=== PATIENT | female | born 1945 | race Caucasian/White ===

== ENCOUNTER → 2024-02-27 | Outpatient (CLI) | payer SELFPAY ==
--- NOTE | 2024-02-27 09:30 | XR_ITS ---
Examination: Screening digital mammography, bilateral Computer aided detection 3-D breast Tomosynthesis, bilateral Date and time of exam: February 27, 2024 0928 hours Compared to mammograms dating to May 01, 2016 Indication: Screening Technique: Nonmagnified MLO, CC views of the breasts to been obtained, reconstructed from 3-D Tomosynthesis images. R2 computer aided detection program utilized for evaluation of suspicious masses and/or abnormal calcifications. 3-D Tomosynthesis images obtained. Findings: Scattered areas of fibroglandular density Benign calcifications No interval suspicious masses Impression: BI-RADS category II: Benign Findings. Recommend 1 year follow-up mammogram.
== END | disposition home or self-care (01) ==
PROVIDERS: Referring Provider Internal Medicine; Visit Provider Internal Medicine
DX: Z12.31 Encounter for screening mammogram for malignant neoplasm of breast (principal); R92.323 Mammographic fibroglandular density, bilateral breasts; R92.1 Mammographic calcification found on diagnostic imaging of breast
CPT/HCPCS: 77063; 77067

== ENCOUNTER → 2024-05-26 | Outpatient (CLI) | payer OTHER, SELFPAY ==
[2024-05-26 11:00] LABS: Collection Type, Urine Clean Catch
[2024-05-26 11:27] LABS: Basophils % (Auto) 1 % (0-2.5); Eosinophils % (Auto) 0 % (0-10); Hematocrit 39.8 % (36.0-46.0); Hemoglobin 13.7 g/dL (12.0-16.0); Immature Granulocytes % (Auto) 0 % (0-0); Immature Granulocytes Auto 0.03 Thou/mm3 (0.00-0.00); Lymphocytes # (Auto) 1.8 Thou/mm3 (1.0-4.8); Lymphocytes % (Auto) 20 % (10-50); Mean Corpuscular HGB Conc 34.4 g/dl (31.0-37.0); Mean Corpuscular Hemoglobin 31.9 pg (25.0-35.0); Mean Corpuscular Volume 93 fL (80-100); Monocytes # (Auto) 0.6 Thou/mm3 (0.0-0.8); Monocytes % (Auto) 7 % (0-12); Neutrophils # (Auto) 6.3 Thou/mm3 (1.8-7.7); Neutrophils % (Auto) 72 % (37-80); Nucleated Red Blood Cell % 0 /100 WBC (0); Platelet Count 291 Thou/mm3 (140-440); RDW Standard Deviation 45.3 fL (36.4-46.3); White Blood Count 8.9 Thou/mm3 (3.6-11.0)
[2024-05-26 11:34] LABS: Glucose Estimated Average 120 mg/dL (80-131); Hemoglobin A1C 5.8 % Hgb (4.8-6.0)
[2024-05-26 11:44] LABS: Creatinine MALB Rnd Ur 104 mg/dL (30-125); Microalbumin Creat Ratio 3 mg/gCrea (<30); Microalbumin, Random Urine 3 mg/L (0-300)
[2024-05-26 11:52] LABS: Bilirubin,Urine Negative (Negative); Blood,Urine Negative (Negative); Clarity,Urine Clear (Clear/Hazy); Color,Urine Lt Yellow (Lt Yel-Yel); Glucose, Urine Negative (Negative); Ketones,Urine Negative (Negative); Leukocyte Esterase,Urine 1+ (Negative); Nitrite,Urine Negative (Negative); PH,Urine 6.5 (5.0-7.0); Protein,Urine Negative (Neg - Trace); Specific Gravity,Urine 1.015 (1.001-1.035); Urobilinogen,Urine 0.2 mg/dL (0.0-1.0)
[2024-05-26 11:55] LABS: Alanine Aminotransferase 12 U/L (10-49); Albumin/Globulin Ratio 1.8 (1.2-2.2); Alkaline Phosphatase 65 U/L (46-116); Anion Gap 9 (7-16); Aspartate Amino Transferase 25 U/L (0-34); BUN/Creatinine Ratio 23 Ratio (12-20); Bilirubin,Total 0.7 mg/dL (0.3-1.2); Blood Urea Nitrogen 18 mg/dL (9-23); Calcium 9.4 mg/dL (8.3-10.6); Calcium (Corrected) 9.4 mg/dL (8.5-10.1); Carbon Dioxide 30.2 mMol/L (20.0-31.0); Cardiac Risk Estimate 2.7 RATIO (3.7-5.6); Chloride 101 mMol/L (98-107); Cholesterol 145 mg/dL (132-200); Creatinine (Component) 0.8 mg/dL (0.6-1.3); Globulin 2.2 gm/dL (2.3-3.5); Glucose 102 mg/dL (74-106); HDL Cholesterol 53 mg/dL (40-60); LDL Cholesterol,Calculated 58 mg/dL (0-130); Osmolality,Calculated 281 (275-295); Potassium 3.3 mMol/L (3.4-5.1); Sodium 140 mMol/L (136-145); Thyroid Stimulating Hormone 0.38 uIU/mL (0.55-4.78); Total Protein 6.2 gm/dL (5.7-8.2); Triglycerides 170 mg/dL (30-150); eGFR > 60 See Note
[2024-05-26 12:24] LABS: Hyaline Casts,Urine 1 /hpf (0-1); RBC,Urine 10 /hpf (0-3); Squamous Epithelial Cell,Urine 6 /hpf (0-5); WBC,Urine 17 /hpf (0-5)
== END | disposition home or self-care (01) ==
LOC: COPL 10:16
PROVIDERS: PCP Internal Medicine; Referring Provider Internal Medicine; Visit Provider Internal Medicine
DX: E11.9 Type 2 diabetes mellitus without complications (principal); I10 Essential (primary) hypertension; E78.5 Hyperlipidemia, unspecified; E03.9 Hypothyroidism, unspecified
CPT/HCPCS: 36415; 80053; 80061; 81001; 82043; 82570; 83036; 84443; 85025

== ENCOUNTER → 2024-07-23 | Outpatient (CLI) | payer OTHER, SELFPAY ==
[2024-07-23 10:38] LABS: Basophils % (Auto) 1 % (0-2.5); Eosinophils # (Auto) 0.1 Thou/mm3 (0.0-0.5); Eosinophils % (Auto) 1 % (0-10); Hematocrit 38.1 % (36.0-46.0); Hemoglobin 13.2 g/dL (12.0-16.0); Immature Granulocytes % (Auto) 0 % (0-0); Immature Granulocytes Auto 0.02 Thou/mm3 (0.00-0.00); Lymphocytes # (Auto) 1.9 Thou/mm3 (1.0-4.8); Lymphocytes % (Auto) 31 % (10-50); Mean Corpuscular HGB Conc 34.6 g/dl (31.0-37.0); Mean Corpuscular Hemoglobin 31.7 pg (25.0-35.0); Mean Corpuscular Volume 92 fL (80-100); Monocytes # (Auto) 0.5 Thou/mm3 (0.0-0.8); Monocytes % (Auto) 8 % (0-12); Neutrophils # (Auto) 3.6 Thou/mm3 (1.8-7.7); Neutrophils % (Auto) 59 % (37-80); Nucleated Red Blood Cell % 0 /100 WBC (0); Platelet Count 258 Thou/mm3 (140-440); RDW Standard Deviation 47.2 fL (36.4-46.3); Red Blood Count 4.16 Miln/mm3 (4.00-5.20); White Blood Count 6.2 Thou/mm3 (3.6-11.0)
[2024-07-23 10:47] LABS: Glucose Estimated Average 117 mg/dL (80-131); Hemoglobin A1C 5.7 % Hgb (4.8-6.0)
[2024-07-23 11:01] LABS: Collection Type, Urine Clean Catch
[2024-07-23 11:05] LABS: Alanine Aminotransferase 12 U/L (10-49); Albumin, Serum 4.1 gm/dL (3.4-4.8); Albumin/Globulin Ratio 1.7 (1.2-2.2); Alkaline Phosphatase 66 U/L (46-116); Anion Gap 7 (7-16); Aspartate Amino Transferase 21 U/L (0-34); BUN/Creatinine Ratio 21 Ratio (12-20); Bilirubin,Total 0.6 mg/dL (0.3-1.2); Blood Urea Nitrogen 17 mg/dL (9-23); Cardiac Risk Estimate 2.6 RATIO (3.7-5.6); Chloride 104 mMol/L (98-107); Cholesterol 155 mg/dL (132-200); Creatinine (Component) 0.8 mg/dL (0.6-1.3); Globulin 2.4 gm/dL (2.3-3.5); Glucose 126 mg/dL (74-106); HDL Cholesterol 60 mg/dL (40-60); LDL Cholesterol,Calculated 64 mg/dL (0-130); Osmolality,Calculated 282 (275-295); Sodium 140 mMol/L (136-145); Thyroid Stimulating Hormone 1.62 uIU/mL (0.55-4.78); Total Protein 6.5 gm/dL (5.7-8.2); Triglycerides 154 mg/dL (30-150); eGFR > 60 See Note
[2024-07-23 11:25] LABS: Bilirubin,Urine Negative (Negative); Blood,Urine Negative (Negative); Clarity,Urine Clear (Clear/Hazy); Color,Urine Lt-Yellow (Lt Yel-Yel); Glucose, Urine Negative (Negative); Ketones,Urine Negative (Negative); Leukocyte Esterase,Urine Positive (Negative); Nitrite,Urine Negative (Negative); PH,Urine 6.5 (5.0-7.0); Protein,Urine Negative (Neg - Trace); RBC,Urine 1 /hpf (0-3); Specific Gravity,Urine 1.016 (1.001-1.035); Squamous Epithelial Cell,Urine 3 /hpf (0-5); Urobilinogen,Urine Negative mg/dL (0.0-1.0); WBC,Urine 4 /hpf (0-5)
== END | disposition home or self-care (01) ==
LOC: COPL 10:06
PROVIDERS: PCP Internal Medicine; Referring Provider Internal Medicine; Visit Provider Internal Medicine
DX: E11.9 Type 2 diabetes mellitus without complications (principal); I10 Essential (primary) hypertension; E78.5 Hyperlipidemia, unspecified; E03.9 Hypothyroidism, unspecified
CPT/HCPCS: 36415; 80053; 80061; 81001; 83036; 84443; 85025

== ENCOUNTER 2024-10-12 20:15 | Inpatient (IN) | payer OTHER, MEDICARE, SELFPAY ==
[2024-10-12 20:17] VITALS: PULSE 40; RESP 18; O2SAT 98
[2024-10-12 20:23] VITALS: BMI 29.2
--- NOTE | 2024-10-12 20:23 | EKG_ITS ---
[facility] Test Date: 2024-10-12 Pat Name: DILEEP STEEL Department: Room: - Gender: Female Pay Clerk: : 1945 Requested By: ED Temporary Provider Order Number: [id number] Reading MD: ED Temporary Provider Measurements Intervals [place] Rate: 44 P: 56 NM: 185 QRS: 236 QRSD: 164 T: 10 QT: 471 QTc: 407 Interpretive Statements SINUS BRADYCARDIA INDETERMINATE AXIS RIGHT BUNDLE BRANCH BLOCK [120+ ms QRS DURATION, UPRIGHT V1, 40+ ms S IN I/aVL/V4/V5/V6] PROBABLE SEPTAL MYOCARDIAL INFARCTION , OF INDETERMINATE AGE [35 ms Q WAVE IN V1/V2] MODERATE T-WAVE ABNORMALITY, CONSIDER LATERAL ISCHEMIA [-0.1+ mV T-WAVE IN I/aVL/V5/V6] Compared to ECG 02/20/2022 11:09:37 Indeterminate axis now present Myocardial infarct finding now present T-wave abnormality now present Possible ischemia now present Sinus rhythm no longer present Right-axis deviation no longer present /store/S0/[id number]/[id number].pdf
--- NOTE | 2024-10-12 20:26 | EDNOTE_ITS ---
ED Dizzyness RME/HPI General Chief Complaint: Chest Pain Stated Complaint: CHEST PAIN Time Seen by Provider: 10/12/24 20:24 Arrival date/time: 10/12/24 20:15 RME / HPI RME / HPI Narrative: DR. CORDERO MAIN ED EVALUATION: 78 y/o female with Hx of Heart Murmur, Hypercholesterolemia, Hypertension, Diabetes Mellitus Type 2 and Hypothyroidism BIBA from home presents to ED c/o dizziness, headache, elevated blood pressure, and decreased heart rate while siting down x just RN ANESTHESIOLOGY. Patient is on Metoprolol. She was recently seen at [facility] due to severe chest pain, L > R. Patient's diagnostic results were unremarkable and was discharged after 3 days. Denies nausea, vomiting, diarrhea and constipation. Patient also denies chest pain, cough, shortness of breath, and fever. Related Data Home Medications ?Medication ?Instructions ?Recorded ?Confirmed allopurinol 100 mg tablet 100 mg PO QDAY #0 tabs 04/2302/20/22 (Zyloprim) lovastatin 20 mg tablet 20 mg PO HS #0 tabs 04/23/14 02/20/22 amitriptyline 10 mg tablet 20 mg PO QHSPRN PRN Anxiety ##90 11/29/16 02/20/22 lisinopril 40 mg tablet 40 mg PO QDAY ##90 11/29/16 02/20/22 hydrochlorothiazide 25 mg tablet 25 mg PO QAM 02/19/20 02/20/22 levothyroxine 75 mcg tablet 75 mcg PO QAM 02/20/22 metformin 500 mg tablet 500 mg PO QDAY 02/20/2202/01 verapamil 120 mg tablet 120 mg PO BID 02/20/2202/20 Previous Rx's ?Medication ?Instructions ?Recorded ciprofloxacin HCl 500 mg tablet 500 mg PO BID #20 tabs 05/19/22 (Cipro) hydrocodone 5 mg-acetaminophen 325 1 tab PO TID PRN pa in #20 tabs 05/19/22 mg tablet Allergies Allergy/AdvReac Type Severity Reaction Status Date / Time No Known Allergies Allergy Verified 05/18/22 16:16 Review of Systems Review of Systems Systems Reviewed: All systems reviewed, normal except as documented Past Medical History Past Medical History NEUROLOGIC: Positive Head Trauma (FELL OFF HORSE ER VISIT AT 29 YRS OLD) CARDIAC: Positive Heart Murmur, Hypercholesterolemia (TAKES MED) and Hypertension (TAKES MED) GASTROINTESTINAL: Positive Diverticulitis and Hemorrhoids (NO SURG) REPRODUCTIVE: Positive Previous Pregnancies (X4) MUSCULOSKELETAL: Positive Gout ENT: Positive Head Trauma (FELL OFF HORSE ER VISIT AT 29 YRS OLD) ENDOCRINE: Positive Diabetes Mellitus Type 2 and Hypothyroidism (TAKES MED) OTHER HISTORY: Positive Chicken Pox, Measles and Mumps Family History FAMILY HISTORY: Positive Family Cardiac Disorders (MOTHER (CVA),FATHER (HEART BYPASS)SISTER (CVA,CA)(HTN)), Family Cancer (SISTER (LUNG)) and Family Surgery (SISTER,FATHER) Surgical History SURGICAL: Positive Section ED Exam Narrative Physical exam: GENERAL APPEARANCE: alert and oriented x 4, well-developed, well-nourished, no acute distress VITALS: All vitals were reviewed and the pulse ox is 95% on room air, which is normal according to my interpretation. HEENT: Normocephalic, atraumatic; pupils equal, round, reactive to light; EOMI; mucous membranes pink, moist; oropharynx clear NECK: Supple LUNGS: CTABL; no wheezes, no rales, no rhonchi HEART: Bradycardia, regular rhythm; normal S1, S2; 2 out of 6 systolic murmur radiating to the left axilla ABDOMEN: non distended; normal BS; soft, no tenderness, no guarding, no rebound; no masses, no organomegaly, no hernia BACK: no CVA tenderness EXTREMITIES: atraumatic; no edema NEUROLOGIC: awake; alert and oriented x4; cranial nerves II-XII grossly intact; no focal sensory or motor deficits PSYCHIATRIC: appropriate mood and affect SKIN: warm, dry, normal color; no rashes Course Course Course Narrative: CXR is ordered for determining the etiology of shortness of breath. Quality Measures none Orders Category Date Time Status Admit to Inpatient Status Routine Admission 10/13/24 02:29 Active Patient Condition Routine Admission 10/13/24 02:29 Ordered Activity as Tolerated Routine Care 10/13/24 02:31 Ordered Barrel Washer Machine NOW Care 10/12/24 20:28 Completed Barrel Washer Machine Q4H START 00 Care 10/12/24 20:26 Active Continuous Pulse Oximetry NOW Care 10/13/24 02:31 Active EKG (ED ONLY) *Do not use* NOW Care 10/12/24 20:23 Completed Flu & Pneumonia Vaccine Screen ONCE Care 10/13/24 02:31 Active Fluid restriction QDAY Care 10/13/24 02:35 Active Insert IV NOW Care 10/12/24 20:27 Active Miscellaneous Nursing Order NOW Care 10/13/24 02:35 Active Notify provider NEEDED Care 10/13/24 02:29 Active Obtain weight daily Care 10/13/24 02:31 Active Strict Intake and Output Routine Care 10/13/24 02:31 Ordered Urinary Catheter QS Care 10/13/24 02:31 Active Consult to Cardiology Routine Cons 10/13/24 02:34 Ordered Diet Cardiac Diet 10/13/[address] head/brain wo con Stat Exams 10/12/24 22:23 Completed EKG (ED Only) Stat Exams 10/12/24 20:23 Draft KUB [XR abdomen 1V] Stat Exams 10/13/24 02:40 Ordered XR chest 1V portable Stat Exams 10/12/24 20:28 Completed B-Type Natriuretic Peptide Stat Lab 10/12/24 20:30 Completed CBC AM DRAW Lab 10/13/24 05:00 Ordered CBC AM DRAW Lab 10/14/24 05:00 Ordered CBC AM DRAW Lab 10/15/24 05:00 Ordered CBC Stat Lab 10/12/24 20:30 Completed Calprotectin, Stool* Routine Lab 10/13/24 Ordered Comprehensive Metabolic Panel AM DRAW Lab 10/13/24 05:00 Ordered Comprehensive Metabolic Panel AM DRAW Lab 10/14/24 05:00 Ordered Comprehensive Metabolic Panel AM DRAW Lab 10/15/24 05:00 Ordered Comprehensive Metabolic Panel Stat Lab 10/12/24 20:30 Completed Free T4 (Free Thyroxine) Stat Lab 10/13/24 00:30 Completed Giardia Antigen, EIA, Stool* Routine Lab 10/13/24 Ordered Lipase Stat Lab 10/12/24 20:30 Completed Magnesium AM DRAW Lab 10/13/24 05:00 Ordered Magnesium Stat Lab 10/12/24 20:30 Completed Partial Thromboplastin Time Stat Lab 10/12/24 20:30 Completed Phosphorous AM DRAW Lab 10/13/24 05:00 Ordered Prothrombin Time with INR Stat Lab 10/12/24 20:30 Completed Stool Culture Routine Lab 10/13/24 02:36 Ordered Stool for WBCs Routine Lab 10/13/24 02:36 Ordered Thyroid Stimulating Hormone Stat Lab 10/13/24 00:30 Completed Troponin I Routine Lab 10/13/24 05:00 Ordered Troponin I Stat Lab 10/12/24 20:30 Completed Troponin I Stat Lab 10/13/24 00:30 Completed UA, C/S IF [Urinalysis, C/S if Indicated] Stat Lab 10/12/24 23:00 Completed Acetaminophen Tab [Tylenol Tab] Med 10/13/24 02:31 Active 650 mg PO Q6H PRN Acetaminophen Tab [Tylenol Tab] Med 10/12/24 22:10 Discontinued 650 mg PO X1 ONE Acetaminophen Tab [Tylenol Tab] Med 10/12/24 22:10 Discontinued 650 mg PO X1 ONE HYDROcodone/APAP 10/325 [[place] 10/325] Med 10/13/24 02:31 Active 1 tab PO Q6H PRN Heparin Inj Med 10/13/24 09:00 Active 5,000 unit SC Q12HR KCL 10% Liq UDC 15 ML Med 10/12/24 22:52 Discontinued 40 meq PO X1 ONE Levothyroxine Sodium [Synthroid] Med 10/13/24 06:00 Active 88 mcg PO ACBR Magnesium Sulfate 2 GM Ivpb [Magnesium Sulfate Ivpb] Med 10/12/24 22:52 D iscontinued 2 gm in 50 ml IV X1 Magnesium Sulfate 4 GM Ivpb [Magnesium Sulfate Ivpb] Med 10/13/24 02:39 Ordered 4 gm in 50 ml IV X1 Morphine Inj Med 10/13/24 02:31 Active 1 mg IVP Q6H PRN Ondansetron Inj [Zofran Inj] Med 10/13/24 02:31 Active 4 mg IVP Q6H PRN POTASSIUM CHL 10 mEq IVPB [Kcl Ivpb] Med 10/12/24 22:52 Active 10 meq in 100 ml IV Q1HR Senna [Senokot] Med 10/13/24 02:31 Active 1 tab PO QDAY PRN Simethicone [Mylicon Chew] Med 10/13/24 02:40 Ordered 80 mg PO QID PRN Sodium Chloride 0.9% 1000 ml [Ns] 1,000 ml Med 10/12/24 22:55 Discontinued IV 999 mls/hr hydrALAZINE INJ [Apresoline Inj] Med 10/12/24 20:36 Discontinued 10 mg IVP X1 ONE hydrALAZINE INJ [Apresoline Inj] Med 10/12/24 21:27 Discontinued 10 mg IVP X1 ONE Code Status Routine Oth 10/13/24 02:29 Ordered Vital Signs Vital signs: Vital Signs Temperature 98.4 F 10/12/24 20:28 Pulse Rate 44 L 10/12/24 20:28 Respiratory Rate 16 10/12/24 20:28 Blood Pressure 216/97 H 10/12/24 20:28 Pulse Oximetry (%) 95 10/12/24 20:28 Dizziness MDM Narrative MDM Narrative:: Scribe Attestation: Lori Hay, am scribing for and in the presence of Dr. Cordero. Provider Notation: Although this document has been carefully reviewed, there may still be some phonetic and other typographical errors.? These errors are purely grammatical due to imperfections in the software program and should not be construed in any way to? compromise the substance of the patient's medical care during this visit. Patient data External records reviewed:: [facility] previous records (Reviewed prior ED records from 11/15/22. Patient was seen for Hemorrhoids.) and EMS form Clinical information provided by:: patient and EMS Social determinants that could affect healthcare access:: none Patient has the following chronic illnesses:: Heart Murmur, Hypercholesterolemia, Hypertension, Diverticulitis, Hemorrhoids, Gout, Diabetes Mellitus Type 2 and Hypothyroidism How is presenting disease/condition affected by chronic disease/condition?: exacerbated by Evaluation data The following diagnostics were reviewed and interpreted by me:: lab results, radiology exam(s) and EKG tracing(s) (EKG manual reading, my interpretation: bradycardia, rate: 44 bpm, no ST elevation, no acute ischemic changes.) Lab and/or radiology exams considered but not ordered:: None Interpretation Summary: RADIOLOGY Chest X-Ray: FINDINGS: Minimal prominence left ventricle Ectatic thoracic aorta. Blunting of the costophrenic angles. Subsegmental atelectasis left base No lobar pneumonia or pulmonary edema IMPRESSION: Subsegmental atelectasis left base Head/Brain CT: Findings: No significant ventricular enlargement. Intra-axial or extra-axial hemorrhage density is not seen. No mass effect or midline shift Basal cisterns are not remarkable. Fourth ventricle is midline. Cranial vault intact. Impression: Negative for acute hemorrhage, mass effect or midline shift Medications / Prescriptions Medications or Prescriptions considered but not ordered:: None Medication administrations:: Medication Administration History Acetaminophen (Acetaminophen 325 Mg Tablet) 650 mg PO Q6H PRN PRN Reason: PAIN SCALE 1-3 (mild Stop: 11/12/24 02:30 Hydrocodone Bitart/Acetaminophen (Hydrocodone/Apap 10/325 Tab) 1 tab PO Q6H PRN PRN Reason: PAIN SCALE 4-6 (Moderate Stop: 10/18/24 02:30 Heparin Sodium (Porcine) (Heparin Sod Inj 5000 Unit/Ml Vial) 5,000 unit SC Q12HR BRITTANI Stop: 10/27/24 08:59 Potassium Chloride (Kcl Ivpb) 10 meq in 100 mls @ 100 mls/hr IV Q1HR BRITTANI Stop: 10/13/24 02:59 Last Admin: 10/13/24 02:14 Dose: 100 mls/hr Documented By: Infusion: 10/13/24 02:14 Dose: Infused Documented By: Admin: 10/13/24 01:26 Dose: 100 mls/hr Documented By: Infusion: 10/13/24 01:23 Dose: Infused Documented By: Admin: 10/13/24 00:20 Dose: 100 mls/hr Documented By: Infusion: 10/13/24 00:20 Dose: Infused Documented By: Admin: 10/12/24 23:19 Dose: 100 mls/hr Documented By: SIMI Magnesium Sulfate (Magnesium Sulfate Ivpb) 4 gm in 50 mls @ 12.5 mls/hr IV X1 ONE Stop: 10/13/24 06:38 Levothyroxine Sodium (Levothyroxine Sodium 88 Mcg Tablet) 88 mcg PO ACBR [facility] Stop: 11/12/24 05:59 Morphine Sulfate (Morphine Sulf Inj 10 Mg/Ml Vial) 1 mg IVP Q6H PRN PRN Reason: PAIN SCALE 7-10 (Severe Stop: 10/18/24 02:30 Ondansetron HCl (Ondansetron Inj 2 Mg/Ml Inj 2 Ml) 4 mg IVP Q6H PRN; Protocol PRN Reason: NAUSEA OR VOMITING Stop: 11/12/24 02:30 Sennosides (Senna Tablet) 1 tab PO QDAY PRN; Protocol PRN Reason: constipation Stop: 11/12/24 02:30 Simethicone (Simethicone 80 Mg Chew) 80 mg PO QID PRN PRN Reason: GAS Stop: 11/12/24 02:39 Discontinued Medications Acetaminophen (Acetaminophen 325 Mg Tablet) 650 mg PO X1 ONE Stop: 10/12/24 22:11 Last Admin: 10/12/24 22:36 Dose: 650 mg Documented By: SIMI Acetaminophen (Acetaminophen 325 Mg Tablet) 650 mg PO X1 ONE Stop: 10/12/24 22:11 Last Admin: 10/12/24 22:24 Dose: Not Given Documented By: ROBY Non-Admin Reason: Cancelled by Provider Hydralazine HCl (Hydralazine Inj 20 Mg/Ml Vial) 10 mg IVP X1 ONE Stop: 10/12/24 20:37 Last Admin: 10/12/24 20:46 Dose: 10 mg Documented By: SIMI Hydralazine HCl (Hydralazine Inj 20 Mg/Ml Vial) 10 mg IVP X1 ONE Stop: 10/12/24 21:28 Last Admin: 10/12/24 22:06 Dose: 10 mg Documented By: NAILA Magnesium Sulfate (Magnesium Sulfate Ivpb) 2 gm in 50 mls @ 25 mls/hr IV X1 ONE Stop: 10/13/24 00:51 Last Infusion: 10/13/24 01:23 Dose: Infused Documented By: Admin: 10/12/24 23:19 Dose: 25 mls/hr Documented By: SIMI Sodium Chloride (Ns) 1,000 mls @ 999 mls/hr IV .Q1H1M ONE Stop: 10/12/24 23:55 Last Admin: 10/12/24 23:19 Dose: 999 mls/hr Documented By: SIMI Potassium Chloride (Potassium Chloride 10% 20 Meq/15 Ml Udc) 40 meq PO X1 ONE Stop: 10/12/24 22:53 Last Admin: 10/12/24 23:20 Dose: 40 meq Documented By: SIMI See above Consultations Consultation(s) initiated? (list below): Yes Consultation #1 (Physician, Specialty, Details): Discussed with resident doctor for Dr. Barros for admission. Reviewed the patient?s HPI, PMHx, lab and/or radiology results. Discussed treatment plan. Will consult an admission to the hospitalist. Time: 01:40 Diagnosis Dizziness Differential Diagnosis: adverse reaction to drug, benign paroxysmal positional vertigo, orthostatic hypotension, vertebral basilar insufficiency, cerebrovascular accident, acute vestibular neuronitis, transient cerebral ischemia and other (CA) Most likely diagnosis given after review of the tests above:: Hypertensive urgency, Symptomatic bradycardia Admission Indicated Admission indicated?: indicated Explain why admission is indicated or not indicated:: Hypertensive urgency, Symptomatic bradycardia Admission Request Was there a request for admission?: Yes Admission Attestation Admission request attestation: Discussed case with [] from Hospitalist service regarding admission. Discussed patients ED course, exam findings, labs, and radiology results. The Hospitalist [agrees,declines] to accept the patient for admission. Disposition Plan Disposition Plan: Admit Discharge Plan Plan Patient Disposition: Admit Acute Care w/in Hospital Prescriptions/Referrals Prescriptions/Med Rec: No Action allopurinol [Zyloprim] 100 MG tablet 100 mg PO QDAY Qty: 0 lovastatin 20 MG tablet 20 mg PO HS Qty: 0 amitriptyline 10 mg Tablet 20 mg PO QHSPRN PRN (Reason: Anxiety) Qty: 90 lisinopril 40 MG tablet 40 mg PO QDAY Qty: 90 hydrochlorothiazide 25 mg Tablet 25 mg PO QAM metformin 500 mg tablet 500 mg PO QDAY Patient Comments: TAKE 1 TABLET BY MOUTH EVERY DAY WITH A MEAL levothyroxine 75 mcg tablet 75 mcg PO QAM Patient Comments: TAKE 1 TABLET BY MOUTH EVERY DAY BEFORE BREAKFAST verapamil 120 mg tablet 120 mg PO BID Patient Comments: TAKE 1 TABLET BY MOUTH TWICE A DAY ciprofloxacin HCl [Cipro] 500 mg tablet 500 mg PO BID Qty: 20 0RF Rx Instructions: Please do not take atorvastatin while taking this medication hydrocodone-acetaminophen 5-325 mg tablet 1 tab PO TID MDD 3 PRN (Reason: pain) Qty: 20 0RF Referrals: No Primary/Family,Physician [Referring Provider] - In 1 week Problem List Clinical Impression: Hypertensive urgency, Symptomatic bradycardia Patient/Caregiver Discharge Instructions Print Language: Italian
[2024-10-12 20:28] VITALS: BP 216/97; PULSE 44; RESP 16; TEMP 36.9; O2SAT 95
--- NOTE | 2024-10-12 20:28 | XR_ITS ---
Examination: AP chest single view TECHNIQUE: AP portable semiupright chest single view Date and time: 51, 2024, 2035 hours INDICATIONS: Onset chest pain today. FINDINGS: Minimal prominence left ventricle Ectatic thoracic aorta. Blunting of the costophrenic angles. Subsegmental atelectasis left base No lobar pneumonia or pulmonary edema IMPRESSION: Subsegmental atelectasis left base
[2024-10-12 20:46] VITALS: BP 216/96; PULSE 56
[2024-10-12] MEDS: hydrALAZINE INJ 20 MG/ML VIAL 10 MG IVP ×2 (20:46→22:06)
[2024-10-12 20:49] LABS: Basophils # (Auto) 0.0 Thou/mm3 (0.0-0.2); Basophils % (Auto) 1 % (0-2.5); Eosinophils # (Auto) 0.1 Thou/mm3 (0.0-0.5); Eosinophils % (Auto) 1 % (0-10); Hematocrit 37.3 % (36.0-46.0); Hemoglobin 12.7 g/dL (12.0-16.0); Immature Granulocytes Auto 0.01 Thou/mm3 (0.00-0.00); Lymphocytes # (Auto) 2.2 Thou/mm3 (1.0-4.8); Lymphocytes % (Auto) 32 % (10-50); Mean Corpuscular HGB Conc 34.0 g/dl (31.0-37.0); Mean Corpuscular Hemoglobin 31.2 pg (25.0-35.0); Mean Corpuscular Volume 92 fL (80-100); Monocytes # (Auto) 0.7 Thou/mm3 (0.0-0.8); Monocytes % (Auto) 10 % (0-12); Neutrophils # (Auto) 3.7 Thou/mm3 (1.8-7.7); Neutrophils % (Auto) 56 % (37-80); Nucleated Red Blood Cell # 0.00 Thou/mm3 (0.00-0.00); Nucleated Red Blood Cell % 0 /100 WBC (0); Platelet Count 187 Thou/mm3 (140-440); RDW Standard Deviation 46.3 fL (36.4-46.3); Red Blood Count 4.07 Miln/mm3 (4.00-5.20); White Blood Count 6.6 Thou/mm3 (3.6-11.0)
[2024-10-12 21:06] LABS: INR 1.3 (0.9-1.3); Partial Thromboplastin Time 26.1 Seconds (22.0-36.0); Prothrombin Time 14.0 Seconds (9.0-12.2)
[2024-10-12 21:10] LABS: B-Type Natriuretic Peptide 427 pg/mL (0-100)
[2024-10-12 21:20] VITALS: BP 206/111
[2024-10-12 21:26] LABS: Alanine Aminotransferase 20 U/L (10-49); Albumin, Serum 3.7 gm/dL (3.4-4.8); Albumin/Globulin Ratio 1.7 (1.2-2.2); Alkaline Phosphatase 82 U/L (46-116); Anion Gap 10 (7-16); Aspartate Amino Transferase 25 U/L (0-34); BUN/Creatinine Ratio 14 Ratio (12-20); Bilirubin,Total 0.8 mg/dL (0.3-1.2); Blood Urea Nitrogen 11 mg/dL (9-23); Calcium 8.9 mg/dL (8.3-10.6); Calcium (Corrected) 9.1 mg/dL (8.5-10.1); Carbon Dioxide 32.7 mMol/L (20.0-31.0); Chloride 103 mMol/L (98-107); Creatinine (Component) 0.8 mg/dL (0.6-1.3); Estimated Creatinine Clearance 57.3 mL/min (>60); Globulin 2.2 gm/dL (2.3-3.5); Glucose 96 mg/dL (74-106); Lipase 37 U/L (12-53); Magnesium 1.0 mg/dL (1.6-2.6); Osmolality,Calculated 289 (275-295); Potassium 2.9 mMol/L (3.4-5.1); Sodium 146 mMol/L (136-145); Total Protein 5.9 gm/dL (5.7-8.2); Troponin I 0.020 ng/mL (0.0-0.045); eGFR > 60 See Note
[2024-10-12 22:06] VITALS: BP 188/80; PULSE 46
--- NOTE | 2024-10-12 22:23 | XR_ITS ---
Examination: CT brain head without contrast. 2-D sagittal coronal reconstructions Date and time of exam:October 12, 2024 at 11:05 PM INDICATIONS: Hypertension with headache today CTDI: vol (mGy):47 DLP: (mGycm):810 Technique: Multiple CT axial sections of the brain have been obtained, 5 mm slice thickness. Contrast has not been administered. 2-D sagittal, coronal reconstructions have been obtained Low dose protocols were performed. One or more of the following dose reduction techniques were used; automated exposure control, adjustment of the mA and/or KV according to patient size, use of iterative reconstruction technique. Findings: No significant ventricular enlargement. Intra-axial or extra-axial hemorrhage density is not seen. No mass effect or midline shift Basal cisterns are not remarkable. Fourth ventricle is midline. Cranial vault intact. Impression: Negative for acute hemorrhage, mass effect or midline shift
[2024-10-12] MEDS: ACETAMINOPHEN 325 MG TABLET 650 MG PO (22:36)
[2024-10-12 22:37] VITALS: BP 172/72
[2024-10-12] MEDS: Magnesium Sulfate 2 GM Ivpb 2 GM/50 ML BAG IV (23:19)
[2024-10-12] MEDS: POTASSIUM CHL 10 mEq IVPB 10 MEQ/100 ML BAG 100 MEQ IV (23:19)
[2024-10-12] MEDS: SODIUM CHLORIDE 0.9% 1000 ML 1,000 ML 999 ML IV (23:19)
[2024-10-12 23:20] LABS: Collection Type, Urine Clean Catch
[2024-10-12] MEDS: POTASSIUM CHLORIDE 10% 20 MEQ/15 ML UDC 40 MEQ PO (23:20)
[2024-10-12 23:26] LABS: Bilirubin,Urine Negative (Negative); Blood,Urine Negative (Negative); Clarity,Urine Clear (Clear/Hazy); Color,Urine Colorless (Lt Yel-Yel); Culture Indicated,Urine Not Indicated; Glucose, Urine Negative (Negative); Ketones,Urine Negative (Negative); Leukocyte Esterase,Urine Positive (Negative); Nitrite,Urine Negative (Negative); PH,Urine 7.5 (5.0-7.0); Protein,Urine Negative (Neg - Trace); RBC,Urine 1 /hpf (0-3); Specific Gravity,Urine 1.007 (1.001-1.035); Squamous Epithelial Cell,Urine < 1 /hpf (0-5); Urobilinogen,Urine Negative mg/dL (0.0-1.0); WBC,Urine 2 /hpf (0-5)
[2024-10-13] VITALS (21 sets, daily range): BP systolic 135–192; BP diastolic 60–119; PULSE 45–106; RESP 9–24; TEMP 35.9–37.2; O2SAT 90–98; BMI 29.2; BMI 29.0
[2024-10-13] MEDS: POTASSIUM CHL 10 mEq IVPB 10 MEQ/100 ML BAG 100 MEQ IV ×3 (00:20→02:14)
[2024-10-13 01:02] LABS: Troponin I 0.023 ng/mL (0.0-0.045)
--- NOTE | 2024-10-13 01:36 | PC.NURSE ---
biba from home for BIBA from home due to dizziness, headache, and chest pain. when pt arrived to ed, pt denied chest pain and sob. pt did state she has a headache
[2024-10-13 02:28] LABS: Free T4 (Free Thyroxine) 1.55 ng/dL (0.89-1.76); Thyroid Stimulating Hormone 1.93 uIU/mL (0.55-4.78)
--- NOTE | 2024-10-13 02:40 | XR_ITS ---
Examination: Abdomen AP single view Technique: AP portable supine abdomen, single view Exam date and time: October 13, 2024, 0243 hours INDICATIONS: Diarrhea and abdominal tenderness today. FINDINGS: Moderate stool in the right and transverse colon. No obstruction. No free air. Moderate lumbar levoscoliosis IMPRESSION: Nonobstructive bowel gas pattern.
--- NOTE | 2024-10-13 02:42 | ESHP_ITS ---
Documentation for date of: 10/13/24 [facility] History of Present Illness Chief complaint: Headache History of present illness: 78-year-old female with past medical history of congestive heart failure, thyroid cancer status post thyroidectomy on thyroid replacement, squamous cell carcinoma of the neck, Crohn's disease, gout, prediabetes, depression, mild cognitive impairment presenting to the ED on 10/13 due to having a headache. Patient's is bedside and provided additional history; apparently patient's blood pressure was elevated at home. Of note, patient denies having any chest pain, palpitations but does state that she has ongoing headache, abdominal pain and weakness. Her states that there was some issues with what medication she took this afternoon due to a mishap with the pill container. Patient's also states that for the past week or so she has been more confused (sounds more like a misunderstanding). Patient states that her primary care physician is Dr. Jason and she follows up with cardiology in [place] Dr. Gallo and Tyr[place]. Apparently she has had a left heart cath which was benign and she did not require any stent placement. Patient does have some degree of heart failure and she has been told she has a murmur in the past. Patient also apparently been told that she has Crohn's disease although she is not on any medications currently; was referred to a printing equipment mechanic in [place] but has yet to follow-up. Patient has been having diarrhea for the past month and using the bathroom about 3-4 times a day; denies recent antibiotic use. Medical history: As stated above Surgical history: Thyroidectomy and squamous cell carcinoma of the neck removal Allergies: NKDA Medications: Pending med rec Family history: Noncontributory Social history: Patient used to be a health practice manager, currently retired. Patient lives in [place] with . Denies any alcohol, tobacco or illicit drug use ROS: All 12 systems assessed and the patient denies unless otherwise stated in HPI In the ED, patient presented hypertensive emergency with a blood pressure of 216/97, heart rate of 44, respiratory rate of 16 but afebrile satting 95 on room air. Pertinent lab findings included sodium 146, potassium 2.9, creatinine 0.8, magnesium 1.0, troponin 0.023, BNP of 427, TSH of 1.93 and free T41.55. Urinalysis shows no signs of infection. EKG shows sinus bradycardia with right bundle branch block and increased QRS interval. Chest x-ray shows subsegmental atelectasis of the left base and head CT is negative for any acute findings. Patient will be admitted for symptomatic bradycardia and hypertensive emergency requiring close monitoring and cardiology consultation. Exam Vital Signs Temp Pulse Resp BP Pulse Ox 98.9 F 46 L 19 192/83 H 97 10/13/24 00:00 10/13/24 00:00 10/13/24 00:00 10/13/24 00:10 10/13/24 00:00 Narrative Exam Physical Exam: GENERAL: Awake, answering questions appropriately, appears stated age HEENT: NC/AT. Moist mucosa. PERRLA/EOMI. CARDIO: Heart RRR, Grade IV/ systolic ejection murmur, no JVD. PULM: No coughing or visible SOB. Lungs CTA B/L. GI: Abdomen soft, tender to palpation diffusely with guarding but no rigidity noted. [place]gmi apparent SKIN/MSK/EXT: +1 pitting edema up to shins bilaterally. No wounds/discoloration/rashes/amputations noted. +Pedal pulses present B/L. NEURO: Oriented x3, Moves extremities x4, no focal neurologic deficits Results: Labs 10/12/24 20:30 10/12/24 20:30 Labs: Short CBC 10/12/24 Range/Units 20:30 WBC 6.6 (3.6-11.0) Thou/mm3 Hgb 12.7 (12.0-16.0) g/dL Hct 37.3 (36.0-46.0) % Plt Count 187 (140-440) Thou/mm3 BMP 10/12/24 20:30 Sodium 146 H Potassium 2.9 L Chloride 103 Carbon Dioxide 32.7 H BUN 11 Creatinine 0.8 Glucose 96 Calcium 8.9 Cardiac Enzymes 10/12/24 10/13/24 Range/Units 20:30 00:30 Troponin I 0.020 0.023 (0.0-0.045) ng/mL Liver Function 10/12/24 Range/Units 20:30 Total Bilirubin 0.8 (0.3-1.2) mg/dL AST 25 (0-34) U/L ALT 20 (10-49) U/L Alkaline Phosphatase 82 (46-116) U/L Albumin 3.7 (3.4-4.8) gm/dL Urine 10/12/24 Range/Units 23:00 Urine Color Colorless A (Lt Yel-Yel) Urine Clarity Clear (Clear/Hazy) Urine pH 7.5 H (5.0-7.0) Ur Specific [place] 1.007 (1.001-1.035) Urine Protein Negative (Neg - Trace) Urine Glucose (UA) Negative (Negative) Quality Measures Quality Measures none Advance care planning discussed with:: patient and spouse Medications Home Medications and Allergies Home Medications ?Medication ?Instructions ?Recorded ?Confirmed ?Type allopurinol 100 mg tablet 100 mg PO QDAY #0 tabs 04/2310/13/24 History (Zyloprim) lovastatin 20 mg tablet 40 mg PO HS #0 tabs 04/23/14 10/13/24 History amitriptyline 10 mg tablet 10 mg PO QHSPRN PRN Anxiety ##90 11/29/16 10/13/24 History hydrochlorothiazide 25 mg tablet 25 mg PO QAM 02/19/20 10/13/24 History levothyroxine 75 mcg tablet 88 mcg PO QAM 02/20/22 History Allergies Allergy/AdvReac Type Severity Reaction Status Date / Time No Known Allergies Allergy Verified 05/18/22 16:16 Visit Medications Acetaminophen (Acetaminophen 325 Mg Tablet) 650 mg PO Q6H PRN PRN Reason: PAIN SCALE 1-3 (mild Stop: 11/12/24 02:30 Hydrocodone Bitart/Acetaminophen (Hydrocodone/Apap 10/325 Tab) 1 tab PO Q6H PRN PRN Reason: PAIN SCALE 4-6 (Moderate Stop: 10/18/24 02:30 Heparin Sodium (Porcine) (Heparin Sod Inj 5000 Unit/Ml Vial) 5,000 unit SC Q12HR BRITTANI Stop: 10/27/24 08:59 Potassium Chloride (Kcl Ivpb) 10 meq in 100 mls @ 100 mls/hr IV Q1HR BRITTANI Stop: 10/13/24 02:59 Last Admin: 10/13/24 02:14 Dose: 100 mls/hr Magnesium Sulfate (Magnesium Sulfate Ivpb) 4 gm in 50 mls @ 12.5 mls/hr IV X1 ONE Stop: 10/13/24 06:38 Levothyroxine Sodium (Levothyroxine Sodium 88 Mcg Tablet) 88 mcg PO ACBR BRITTANI Stop: 11/12/24 05:59 Morphine Sulfate (Morphine Sulf Inj 10 Mg/Ml Vial) 1 mg IVP Q6H PRN PRN Reason: PAIN SCALE 7-10 (Severe Stop: 10/18/24 02:30 Ondansetron HCl (Ondansetron Inj 2 Mg/Ml Inj 2 Ml) 4 mg IVP Q6H PRN; Protocol PRN Reason: NAUSEA OR VOMITING Stop: 11/12/24 02:30 Sennosides (Senna Tablet) 1 tab PO QDAY PRN; Protocol PRN Reason: constipation Stop: 11/12/24 02:30 Simethicone (Simethicone 80 Mg Chew) 80 mg PO QID PRN PRN Reason: GAS Stop: 11/12/24 02:39 Discontinued Medications Acetaminophen (Acetaminophen 325 Mg Tablet) 650 mg PO X1 ONE Stop: 10/12/24 22:11 Last Admin: 10/12/24 22:36 Dose: 650 mg Acetaminophen (Acetaminophen 325 Mg Tablet) 650 mg PO X1 ONE Stop: 10/12/24 22:11 Last Admin: 10/12/24 22:24 Dose: Not Given Hydralazine HCl (Hydralazine Inj 20 Mg/Ml Vial) 10 mg IVP X1 ONE Stop: 10/12/24 20:37 Last Admin: 10/12/24 20:46 Dose: 10 mg Hydralazine HCl (Hydralazine Inj 20 Mg/Ml Vial) 10 mg IVP X1 ONE Stop: 10/12/24 21:28 Last Admin: 10/12/24 22:06 Dose: 10 mg Magnesium Sulfate (Magnesium Sulfate Ivpb) 2 gm in 50 mls @ 25 mls/hr IV X1 ONE Stop: 10/13/24 00:51 Last Infusion: 10/13/24 01:23 Dose: Infused Sodium Chloride (Ns) 1,000 mls @ 999 mls/hr IV .Q1H1M ONE Stop: 10/12/24 23:55 Last Admin: 10/12/24 23:19 Dose: 999 mls/hr Potassium Chloride (Potassium Chloride 10% 20 Meq/15 Ml Udc) 40 meq PO X1 ONE Stop: 10/12/24 22:53 Last Admin: 10/12/24 23:20 Dose: 40 meq Assessment & Plan Plan 78-year-old female with past medical history of congestive heart failure, thyroid cancer status post thyroidectomy on thyroid replacement, squamous cell carcinoma of the neck, Crohn's disease, gout, prediabetes, depression, mild cognitive impairment presenting to the ED on 10/13 due to having a headache will be admitted for symptomatic bradycardia and hypertensive emergency requiring close monitoring and cardiology consultation. #Symptomatic bradycardia As noted above, patient presented with symptomatic bradycardia, weakness/dizziness initially In the ED patient's heart rate has been fluctuating between low 40s to mid 50s but with stable blood pressure Patient is on metoprolol succinate 25 mg along with amitriptyline which could potentially be causing cardiac arrhythmia Patient does have extensive cardiac history and follows with Dr. Gallo and Tyrone Plan: Telemetry monitoring Dr. Wells, cardiology consulted appreciate recommendations Possible need for pacemaker Will consider atropine versus transcutaneous pacing if patient becomes hypotensive #Hypertensive emergency #Hypertension Patient presented in hypertensive emergency with a systolic 216 diastolic 97 Had symptoms of headache which could be contributed to the hypertensive emergency In the ED patient was given x 2 IV hydralazine 10 mg Patient is on home hydrochlorothiazide 25 mg and metoprolol succinate 25 Plan: Permissive hypertension at this time with a goal reduction of 25% within the next 24 hours Start antihypertensives when appropriate #History of congestive heart failure, unknown EF [place] Heart Association class II Patient apparently had a workup at [facility] recently for chest discomfort but all findings were negative She has some degree of heart failure as noted by her home medications but she is unsure of her ejection fraction There is no echo on file On examination, patient does have +1 pitting edema in lower extremities but no JVD, no crackles Initial troponin 0.023 and BNP of 427 Chest x-ray does not show any signs of vascular congestion Plan: IV Lasix 40 daily while monitoring for permissive hypertension Daily weight Strict I's and O's Fluid restriction of 1800 mL Echo ordered #Severe electrolyte abnormalities Patient presenting with low potassium and low magnesium Plan: Replete as needed Follow-up with morning labs #Chronic diarrhea #History of Crohn's disease? Patient states that she has been having diarrhea for the past month, 3-4 bowel movements a day Has history of Crohn's disease apparently but does not take any medications Has been referred to a printing equipment mechanic in [place] but has not followed up Plan: Stool studies, stool WBC, Giardia, culture Monitor symptoms in the hospital Consider GI consultation if needed #Thyroid cancer status post thyroidectomy #Squamous cell carcinoma of the neck #Prediabetes #Depression #Gout Chronic medical conditions nonpertinent to the following presentation Plan: Restarted patient's levothyroxine 88 mcg Pending official med rec Will continue monitoring for any acute changes Health Maintenance: Lines: PIV, [place] Diet: Cardiac Bowel: Senna GI prophylaxis: Not needed DVT prophylaxis: Subcu heparin Dispo: Telemetry monitoring, cardiology consultation for symptomatic bradycardia and hypertensive emergency Code: Full Patient seen and assessed with attending Dr. Fiorella Purdy DO PGY-2 Internal Medicine - GME Attending Provider Attestation/Addendum I have discussed and was present for the essential components of the history, physical examination, diagnosis, and treatment plan with the resident. I agree with the patient's care as documented by the resident and amended herein by me. Erick Barros DO. Although this document has been carefully reviewed, there may still be some phonetic and other typographical errors. These errors are purely grammatical due to imperfections in the software program and should not be construed in any way to compromise the substance of the patient's medical care during this visit.
[2024-10-13] MEDS: Magnesium Sulfate 4 GM Ivpb 4 GM/50 ML BAG IV (02:45)
--- NOTE | 2024-10-13 03:05 | ECHO_ITS ---
Transthoracic Echo Report Ht (in): 64 Wt (lb): 170 Exam Location: Echo Lab Status: Inpatient Hog Counter: Merari Sal Indications: Procedure Performed: BP: 161 / 60 HR: 49 Technical Quality: Very technically difficult study MEASUREMENTS (Male / Female) Normal Values 2D ECHO LV Diastolic Diameter PLAX 3.8 cm 4.2 - 5.9 / 3.9 - 5.3 cm LV Systolic Diameter PLAX 2.5 cm IVS Diastolic Thickness 1.2 cm 0.6 - 1.0 / 0.6 - 0.9 cm LVPW Diastolic Thickness 1.2 cm 0.6 - 1.0 / 0.6 - 0.9 cm LV Relative Wall Thickness 0.6 LVOT Diameter 1.9 cm Aortic Root Diameter 2.7 cm M-MODE Aortic Root Diameter MM 2.6 cm LA Systolic Diameter MM 3.0 cm LA Ao Ratio MM 1.2 AV Cusp Separation MM 1.2 cm DOPPLER AV Peak Velocity 273.0 cm/s AV Peak Gradient 29.8 mmHg AV Mean Gradient 15.0 mmHg AV Velocity Time Integral 62.0 cm LVOT Peak Velocity 134.0 cm/s LVOT Peak Gradient 7.2 mmHg LVOT Velocity Time Integral 37.5 cm LVOT Cardiac Index 2757.5 cm?/min?m? AV Area Cont Eq vti 1.7 cm? AV Area Cont Eq pk 1.4 cm? MV Area PHT 1.9 cm? Mitral E Point Velocity 74.2 cm/s Mitral A Point Velocity 78.1 cm/s Mitral E to A Ratio 1.0 LV E' Lateral Velocity 6.0 cm/s Mitral E to LV E' Lateral Ratio 12.4 LV E' Septal Velocity 8.2 cm/s Mitral E to LV E' Septal Ratio 9.1 TR Peak Velocity 263.0 cm/s TR Peak Gradient 27.7 mmHg FINDINGS Left Ventricle Normal left ventricular size and systolic function with no obvious regional wall motion abnormalities. Mild LVH. There is grade I diastolic dysfunction of the left ventricle (impaired relaxation pattern). The ejection fraction is visually estimated at 60-65 %. Right Ventricle The right ventricle is normal in size and systolic function. The estimated right ventricular systolic pressure, 33 mmHg. RAP 5. Left Atrium The left atrium is normal by two-dimensional, color flow and Doppler imaging with no structural abnormalities, no thrombus formation present. Right Atrium The right atrium is normal by two-dimensional imaging, color flow and Doppler imaging with no structural abnormalities, no thrombus formation present. Atrial Septum The interatrial septum appears normal with no evidence of a shunt. Aorta The aorta is normal by two-dimensional, color flow and Doppler interrogation. Mitral Valve The mitral valve is normal by two-dimensional, color flow and Doppler interrogation. Trace mitral regurgitation. Aortic Valve aortic valve sclerosis. Mild aortic valve stenosis. Tricuspid Valve The tricuspid valve is normal by two-dimensional, color flow and Doppler interrogation. Mild TR. Pulmonic Valve The pulmonic valve is not well visualized. There is no significant pulmonic valve regurgitation. Vessels The pulmonary artery appears normal. The inferior vena cava pulmonary and hepatic veins appear normal. Pericardium The pericardium is normal by two-dimensional imaging. There is no significant pericardial effusion. CONCLUSIONS Indication: Bradycardia Normal LV size. Mild LVH. There is grade I diastolic dysfunction. Estimated EF at 60-65 %. The RV is normal in size and systolic function. The estimated RVSP, 33 mmHg. RAP 5. Trace MR. Mild TR. Sclerosis AV. Mild . Prince Wells (Electronically Signed) Final Date: 14 October 2024 14:09
[2024-10-13] MEDS: MORPHINE SULF INJ 10 MG/ML VIAL IVP (04:55)
[2024-10-13 06:18] LABS: Alanine Aminotransferase 21 U/L (10-49); Albumin, Serum 4.0 gm/dL (3.4-4.8); Albumin/Globulin Ratio 1.7 (1.2-2.2); Alkaline Phosphatase 83 U/L (46-116); Anion Gap 11 (7-16); Aspartate Amino Transferase 33 U/L (0-34); BUN/Creatinine Ratio 13 Ratio (12-20); Bilirubin,Total 1.0 mg/dL (0.3-1.2); Blood Urea Nitrogen 9 mg/dL (9-23); Calcium 8.8 mg/dL (8.3-10.6); Calcium (Corrected) 8.8 mg/dL (8.5-10.1); Carbon Dioxide 27.1 mMol/L (20.0-31.0); Chloride 104 mMol/L (98-107); Creatinine (Component) 0.7 mg/dL (0.6-1.3); Estimated Creatinine Clearance 65.5 mL/min (>60); Globulin 2.3 gm/dL (2.3-3.5); Glucose 128 mg/dL (74-106); Magnesium 2.0 mg/dL (1.6-2.6); Osmolality,Calculated 283 (275-295); Phosphorous 3.0 mg/dL (2.4-5.1); Potassium 3.9 mMol/L (3.4-5.1); Sodium 142 mMol/L (136-145); Total Protein 6.3 gm/dL (5.7-8.2); Troponin I 0.020 ng/mL (0.0-0.045); eGFR > 60 See Note
[2024-10-13] MEDS: hydrALAZINE INJ 20 MG/ML VIAL 10 MG IVP (06:35)
[2024-10-13 07:06] LABS: Basophils # (Auto) 0.0 Thou/mm3 (0.0-0.2); Basophils % (Auto) 0 % (0-2.5); Eosinophils # (Auto) 0.0 Thou/mm3 (0.0-0.5); Eosinophils % (Auto) 0 % (0-10); Hematocrit 45.4 % (36.0-46.0); Hemoglobin 15.6 g/dL (12.0-16.0); Immature Granulocytes Auto 0.04 Thou/mm3 (0.00-0.00); Lymphocytes # (Auto) 1.8 Thou/mm3 (1.0-4.8); Lymphocytes % (Auto) 18 % (10-50); Mean Corpuscular HGB Conc 34.4 g/dl (31.0-37.0); Mean Corpuscular Hemoglobin 31.5 pg (25.0-35.0); Mean Corpuscular Volume 92 fL (80-100); Monocytes # (Auto) 0.8 Thou/mm3 (0.0-0.8); Monocytes % (Auto) 8 % (0-12); Neutrophils # (Auto) 7.0 Thou/mm3 (1.8-7.7); Neutrophils % (Auto) 73 % (37-80); Nucleated Red Blood Cell # 0.00 Thou/mm3 (0.00-0.00); Nucleated Red Blood Cell % 0 /100 WBC (0); Platelet Count 206 Thou/mm3 (140-440); RDW Standard Deviation 46.4 fL (36.4-46.3); Red Blood Count 4.96 Miln/mm3 (4.00-5.20); White Blood Count 9.6 Thou/mm3 (3.6-11.0)
[2024-10-13] MEDS: FUROSEMIDE INJ 10 MG/ML 4ML VIAL 40 MG IVP (08:20)
[2024-10-13] MEDS: HEPARIN SOD INJ 5000 UNIT/ML VIAL SC ×2 (08:20→20:36)
[2024-10-13] MEDS: hydrALAZINE INJ 20 MG/ML VIAL IVP (08:21)
--- NOTE | 2024-10-13 09:34 | PD.RESPRO ---
Documentation for date of: 10/13/24 Subjective Subjective Interval history: Took over care from hospitalist team. 78-year-old female with past medical history of congestive heart failure, thyroid cancer status post thyroidectomy on thyroid replacement, squamous cell carcinoma of the neck, Crohn's disease, gout, prediabetes, depression, mild cognitive impairment presenting to the ED on 10/13 due to having a headache. Patient's is bedside and provided additional history; apparently patient's blood pressure was elevated at home. Of note, patient denies having any chest pain, palpitations but does state that she has ongoing headache, abdominal pain and weakness. Her states that there was some issues with what medication she took this afternoon due to a mishap with the pill container. Patient's also states that for the past week or so she has been more confused (sounds more like a misunderstanding). Patient states that her primary care physician is Dr. Jason and she follows up with cardiology in [place] Dr. Gallo and [place]. Apparently she has had a left heart cath which was benign and she did not require any stent placement. Patient does have some degree of heart failure and she has been told she has a murmur in the past. Patient also apparently been told that she has Crohn's disease although she is not on any medications currently; was referred to a billing and insurance coordinator in [place] but has yet to follow-up. Patient has been having diarrhea for the past month and using the bathroom about 3-4 times a day; denies recent antibiotic use. 10/13/24: Patient was admitted overnight. Seen and examined at bedside. Reports headache, nausea, mild abdominal pain on palpation, and anxiety. Denies chest pain, SOB or fever. BP elevated this morning 182/73. HR is ranging from 30s to 100s. Family at bedside and reports that patient has been managing her own medication, but pills are missing in containers and unknown if patient has taken them or not. On discharge from [facility], per family patient was discontinued on many BP medications like lisinopril and verapamil, but unknown if patient is still taking. Spoke with who reports that she has been diagnosed with Crohn's for years and was on medication and Crohn's was stable , and lost follow up to medication. He does not remember the name of the provider she saw for Crohns. Labs, medications in the hospital were reviewed. Exam Vital Signs Temp Pulse Resp BP Pulse Ox 98.9 F 106 H 19 182/73 H 97 10/13/24 00:00 10/13/24 08:21 10/13/24 00:00 10/13/24 08:21 10/13/24 00:00 Narrative Exam General: AOx3, no acute distress, anxious HEENT: NC/AT, mucous membranes moist, bilateral sclera anicteric Cardiovascular: regular rate and rhythm, S1/S2 present, grade 3 systolic ejection murmur Pulmonary: clear to auscultation bilaterally, no rales/rhonchi/wheezes Abdominal: soft, non-distended, no rebound/guarding, diffuse tenderness to palpation, bowel sounds hyperactive Extremities: +1 BLE pitting edema up to knees Skin: warm and dry, intact, no rashes Neuro CN II-XII grossly intact, no focal deficits, alert, following commands Objective Labs 10/13/24 06:29 10/13/24 04:48 Labs: Laboratory Results - last 24 hr 10/12/24 10/12/24 10/13/24 20:30 23:00 00:30 WBC 6.6 RBC 4.07 Hgb 12.7 Hct 37.3 MCV 92 MCH 31.2 MCHC 34.0 RDW Std Deviation 46.3 Plt Count 187 Neut % (Auto) 56 Lymph % (Auto) 32 [place] % (Auto) 10 Eos % (Auto) 1 Baso % (Auto) 1 Neut # (Auto) 3.7 Lymph # (Auto) 2.2 [place] # (Auto) 0.7 Eos # (Auto) 0.1 Baso # (Auto) 0.0 Immature Gran # (Auto) 0.01 H Absolute Nucleated RBC 0.00 Immature Gran % 0 Nucleated RBC % 0 PT 14.0 H INR 1.3 APTT 26.1 Sodium 146 H Potassium 2.9 L Chloride 103 Carbon Dioxide 32.7 H Anion Gap 10 BUN 11 Creatinine 0.8 Estim Creat Clear Calc 57.3 L eGFR > 60 BUN/Creatinine Ratio 14 Glucose 96 Calculated Osmolality 289 Calcium 8.9 Corrected Calcium 9.1 Phosphorus Magnesium 1.0 L Total Bilirubin 0.8 AST 25 ALT 20 Alkaline Phosphatase 82 Troponin I 0.020 0.023 B-Natriuretic Peptide 427 H Total Protein 5.9 Albumin 3.7 Globulin 2.2 L Albumin/Globulin Ratio 1.7 Lipase 37 TSH 1.93 Free T4 1.55 Ur Collection Type Clean Catch Urine Color Colorless A Urine Clarity Clear Urine pH 7.5 H Ur Specific [place] 1.007 Urine Protein Negative Urine Glucose (UA) Negative Urine Ketones Negative Urine Blood Negative Urine Nitrite Negative Urine Bilirubin Negative Urine Urobilinogen (Auto) Negative Ur Leukocyte Esterase Positive Urine RBC 1 Urine WBC 2 Ur Squamous Epith Cells < 1 Urine Bacteria None Ur Culture Indicated? Not Indicated 10/13/24 10/13/24 04:48 06:29 WBC 9.6 D RBC 4.96 Hgb 15.6 D Hct 45.4 MCV 92 MCH 31.5 MCHC 34.4 RDW Std Deviation 46.4 H Plt Count 206 Neut % (Auto) 73 Lymph % (Auto) 18 [place] % (Auto) 8 Eos % (Auto) 0 Baso % (Auto) 0 Neut # (Auto) 7.0 Lymph # (Auto) 1.8 [place] # (Auto) 0.8 Eos # (Auto) 0.0 Baso # (Auto) 0.0 Immature Gran # (Auto) 0.04 H Absolute Nucleated RBC 0.00 Immature Gran % 0 Nucleated RBC % 0 PT INR APTT Sodium 142 Potassium 3.9 D Chloride 104 Carbon Dioxide 27.1 Anion Gap 11 BUN 9 Creatinine 0.7 Estim Creat Clear Calc 65.5 eGFR > 60 BUN/Creatinine Ratio 13 Glucose 128 H Calculated Osmolality 283 Calcium 8.8 Corrected Calcium 8.8 Phosphorus 3.0 Magnesium 2.0 Total Bilirubin 1.0 AST 33 ALT 21 Alkaline Phosphatase 83 Troponin I 0.020 B-Natriuretic Peptide Total Protein 6.3 Albumin 4.0 Globulin 2.3 Albumin/Globulin Ratio 1.7 Lipase TSH Free T4 Ur Collection Type Urine Color Urine Clarity Urine pH Ur Specific [place] Urine Protein Urine Glucose (UA) Urine Ketones Urine Blood Urine Nitrite Urine Bilirubin Urine Urobilinogen (Auto) Ur Leukocyte Esterase Urine RBC Urine WBC Ur Squamous Epith Cells Urine Bacteria Ur Culture Indicated? Quality Measures Quality Measures none Advance care planning discussed with:: patient Assessment & Plan Assessment Current Active Medications: Generic Name Dose Route Start Last Admin Trade Name Freq PRN Reason Stop Dose Admin Acetaminophen 650 mg 10/13/24 02:31 Acetaminophen 325 Mg Tablet PO 11/12/24 02:30 Q6H PRN PAIN SCALE 1-3 (mild Hydrocodone Bitart/Acetaminophen 1 tab 10/13/24 02:31 Hydrocodone/Apap 10/325 Tab PO 10/18/24 02:30 Q6H PRN PAIN SCALE 4-6 (Moderate Atropine Sulfate 0.5 mg 10/13/24 06:56 Atropine Sulf Inj 0.1 Mg/Ml Syr 10 Ml IVP 11/12/24 06:55 Q5MIN PRN HR<40 and symptomatic Furosemide 40 mg 10/13/24 09:00 10/13/24 08:20 Furosemide Inj 10 Mg/Ml 4ml Vial IVP 11/12/24 08:59 40 mg QDAY BRITTANI Administration Heparin Sodium (Porcine) 5,000 unit 10/13/24 09:00 10/13/24 08:20 Heparin Sod Inj 5000 Unit/Ml Vial SC 10/27/24 08:59 5,000 unit Q12HR BRITTANI Administration Hydralazine HCl 10 mg 10/13/24 05:14 10/13/24 06:35 Hydralazine Inj 20 Mg/Ml Vial IVP 11/12/24 05:13 10 mg Q6H PRN Administration Systolic >180, HR <75 Hydralazine HCl 25 mg 10/13/24 12:00 Hydralazine Hcl 25 Mg Tablet PO 11/12/24 11:59 Q8H BRITTANI Levothyroxine Sodium 88 mcg 10/13/24 06:00 10/13/24 05:12 Levothyroxine Sodium 88 Mcg Tablet PO 11/12/24 05:59 Not Given ACBR BRITTANI Morphine Sulfate 1 mg 10/13/24 02:31 10/13/24 04:55 Morphine Sulf Inj 10 Mg/Ml Vial IVP 10/18/24 02:30 1 mg Q6H PRN Administration PAIN SCALE 7-10 (Severe Ondansetron HCl 4 mg 10/13/24 09:02 Ondansetron Inj 2 Mg/Ml Inj 2 Ml IVP 11/12/24 02:30 Q4HR PRN NAUSEA OR VOMITING Protocol Scopolamine 1 mg 10/13/24 08:57 Scopolamine 1 Mg Tdsy TOP 11/12/24 08:59 Q3D PRN NAUSEA OR VOMITING Protocol Sennosides 1 tab 10/13/24 09:00 10/13/24 08:31 Senna Tablet PO 11/12/24 08:59 Not Given QDAY BRITTANI Protocol Simethicone 80 mg 10/13/24 02:40 Simethicone 80 Mg Chew PO 11/12/24 02:39 QID PRN GAS Plan 78-year-old female with past medical history of congestive heart failure, thyroid cancer status post thyroidectomy on thyroid replacement, squamous cell carcinoma of the neck, Crohn's disease, gout, prediabetes, depression, mild cognitive impairment presenting to the ED on 10/13 due to having a headache will be admitted for symptomatic bradycardia and hypertensive emergency requiring close monitoring and cardiology consultation. #Symptomatic bradycardia As noted above, patient presented with symptomatic bradycardia, weakness/dizziness initially, with HR 40s-mid 50s in ED with stable blood pressure. Patient is on metoprolol succinate 25 mg along with amitriptyline which could potentially be causing cardiac arrhythmia//bradycardia, but unsure of which medications patient is taking. Patient likely has sick sinus syndrome with HR varying from mid 40s-low 100s with possible medication self-administration error. Recently admitted to [facility], BP meds like lisinopril and verapamil were stopped, but unsure if patient resumed or stopped. Patient does have extensive cardiac history and follows with Dr. Gallo and Tyrone Plan: -Telemetry monitoring -Dr. Wells, cardiology consulted appreciate recommendations -Possible need for pacemaker -Will consider atropine versus transcutaneous pacing if patient becomes hypotensive #Hypertensive emergency #Hypertension Patient presented in hypertensive emergency with a systolic 216 diastolic 97, given hydralazine IV 10 mg x2 in ED Had symptoms of headache which could be contributed to the hypertensive emergency Patient is on home hydrochlorothiazide 25 mg and metoprolol succinate 25 Plan: -Permissive hypertension at this time with a goal reduction of 25% within the next 24 hours -Start hydralazine 25 mg q8h -Hold home BP medication for now #History of congestive heart failure, unknown EF [place] [employer] class II Patient apparently had a workup at [facility] recently for chest discomfort but all findings were negative She has some degree of heart failure as noted by her home medications but she is unsure of her ejection fraction On examination, patient does have +1 pitting edema in lower extremities but no JVD, no crackles Initial troponin 0.023 and BNP of 427 Chest x-ray does not show any signs of vascular congestion Plan: -IV Lasix 40 daily while monitoring for permissive hypertension -Daily weight -Strict I's and O's -Fluid restriction of 1800 mL -Echo ordered #Chronic diarrhea #History of Crohn's disease? Patient states that she has been having diarrhea for the past month, 3-4 bowel movements a day Spoke with , patient has had a hx of Crohn's disease for years and was on medication, was told Crohn's was stable, and lost follow up to medication. Has been referred to a billing and insurance coordinator in [place] but has not followed up Plan: -Stool studies, stool WBC, Giardia, culture -Monitor symptoms in the hospital -Dr. Tompkins, GI consulted appreciate recommendations #Severe electrolyte abnormalities Patient presented with low potassium and low magnesium likely from 1 mo hx of diarrhea Plan: -Replete as needed #Thyroid cancer status post thyroidectomy #Squamous cell carcinoma of the neck #Prediabetes #Depression #Gout Chronic medical conditions nonpertinent to the following presentation Plan: -Restarted patient's levothyroxine 88 mcg and allopurinol 100 mg -Hold amitriptyline for now -Will continue monitoring for any acute changes Hospital management: Lines: PIV, [place] Diet: Cardiac Bowel: Senna DVT prophylaxis: heparin q12 Disposition: telemetry, cardiology consulted for bradycardia CODE STATUS: Full Plan of care discussed with attending Dr. Jason, and PGY-2 Dr. Funes. Ange Posada, DO PGY-1 Internal Medicine Attending Provider Attestation/Addendum Patient seen and examined with resident physician Dr. Posada. Note reviewed, agree with findings and recommendations. Admitted with symptomatic bradycardia. Blood pressure seems to be on the higher side. Awaiting Dr. Wells recommendations. Hold off on rate controlled medications. Give hydralazine for blood pressure control. Might need pacemaker pending cards recommendations.
--- NOTE | 2024-10-13 11:07 | EKG_ITS ---
[facility] Test Date: 2024-10-13 Pat Name: DILEEP STEEL Department: Room: S256A Gender: Female Sexual Abuse Counsellor: ROSAS : 1945 Requested By: Angela Vega Order Number: [id number] Reading MD: Angela Vega Measurements Intervals Page Rate: 47 P: 42 TX: 173 QRS: 205 QRSD: 153 T: 32 QT: 522 QTc: 464 Interpretive Statements SINUS BRADYCARDIA POSSIBLE LEFT ATRIAL ENLARGEMENT MARKED RIGHT AXIS DEVIATION RIGHT BUNDLE BRANCH BLOCK SEPTAL MYOCARDIAL INFARCTION , OF INDETERMINATE AGE Compared to ECG 10/12/2024 20:25:30 Right-axis deviation now present Indeterminate axis no longer present T-wave abnormality no longer present Possible ischemia no longer present Myocardial infarct finding still present /store/S0/[id number]/ecg/[id number].pdf
--- NOTE | 2024-10-13 11:11 | PD.IMCONS ---
HPI Data of Consult Requesting Physician: Ligia Wells MD Primary Care Provider: Katherine Jason MD Consult Narrative History of present illness: This is a 78-year-old female with past medical history of congestive heart failure, thyroid cancer status post thyroidectomy on thyroid replacement, squamous cell carcinoma of the neck, Crohn's disease, gout, prediabetes, depression, mild cognitive impairment pt seen ih the ER with uncontrolled BP and headache CT head was negative today noted to be bradycardia ; HR 44 HR 44 with SR and RBBB BP 145 /67 it pt has persistant bradycardia with symptoms will require Pacemaker cc:: cc: Ligia Wells MD Meds Home Medications and Allergies Home Medications ?Medication ?Instructions ?Recorded ?Confirmed ?Type allopurinol 100 mg tablet 100 mg PO QDAY #0 tabs 04/23/14 10/13/24 History (Zyloprim) lovastatin 20 mg tablet 40 mg PO HS #0 tabs 04/23/14 10/13/24 History amitriptyline 10 mg tablet 10 mg PO QHSPRN PRN Anxiety ##90 11/29/16 10/13/24 History hydrochlorothiazide 25 mg tablet 25 mg PO QAM 02/19/20 10/13/24 History levothyroxine 75 mcg tablet 88 mcg PO QAM 02/20/22 10/13/24 History Allergies Allergy/AdvReac Type Severity Reaction Status Date / Time No Known Allergies Allergy Verified 05/18/22 16:16 Exam Vital Signs Temp Pulse Resp BP Pulse Ox 96.7 F L 106 H 21 H 145/67 H 98 10/13/24 08:00 10/13/24 08:21 10/13/24 08:00 10/13/24 10:00 10/13/24 08:00 Routine HEENT Exam Head: Present normocephalic and atraumatic Eye: Present EOMI and PERRL ENT: Present mucous membranes moist Routine Neck Exam Neck: Present supple and trachea midline Routine Respiratory Exam Respiratory: Present chest non-tender, lungs clear, normal breath sounds and no resp distress Routine Cardiovascular Exam Cardiovascular: Present RRR Routine Abdominal Exam Abdominal: Present soft and normoactive bowel sounds Routine Extremities Exam Extremities: Present full ROM Routine Skin Exam Skin: Present intact, dry and warm Routine Neurological Exam Neurological: Present alert, oriented X3 and CN II-XII intact Routine Psychiatric Exam Psychiatric: Present normal affect and normal thought process Results Labs 10/13/24 06:29 10/13/24 04:48 Labs: Short CBC 10/12/24 10/13/24 Range/Units 20:30 06:29 WBC 6.6 9.6 D (3.6-11.0) Thou/mm3 Hgb 12.7 15.6 D (12.0-16.0) g/dL Hct 37.3 45.4 (36.0-46.0) % Plt Count 187 206 (140-440) Thou/mm3 BMP 10/12/24 10/13/24 20:30 04:48 Sodium 146 H 142 Potassium 2.9 L 3.9 D Chloride 103 104 Carbon Dioxide 32.7 H 27.1 BUN 11 9 Creatinine 0.8 0.7 Glucose 96 128 H Calcium 8.9 8.8 Cardiac Enzymes 10/12/24 10/13/24 10/13/24 Range/Units 20:30 00:30 04:48 Troponin I 0.020 0.023 0.020 (0.0-0.045) ng/mL Liver Function 10/12/24 10/13/24 Range/Units 20:30 04:48 Total Bilirubin 0.8 1.0 (0.3-1.2) mg/dL AST 25 33 (0-34) U/L ALT 20 21 (10-49) U/L Alkaline Phosphatase 82 83 (46-116) U/L Albumin 3.7 4.0 (3.4-4.8) gm/dL Urine 10/12/24 Range/Units 23:00 Urine Color Colorless A (Lt Yel-Yel) Urine Clarity Clear (Clear/Hazy) Urine pH 7.5 H (5.0-7.0) Ur Specific [place] 1.007 (1.001-1.035) Urine Protein Negative (Neg - Trace) Urine Glucose (UA) Negative (Negative) Assessment and Plan Additional Assessment & Plan Additional Plan: continue telementry monitoring HR 44 Troponin so far negative avoid betablocker / calcium blockers / digoxin echo pending
[2024-10-13] MEDS: ACETAMINOPHEN 325 MG TABLET 650 MG PO (11:24)
[2024-10-13] MEDS: ONDANSETRON INJ 2 MG/ML INJ 2 ML 4 MG IVP (11:25)
--- NOTE | 2024-10-13 11:52 | PD.RESCONSUL ---
HPI Data of Consult Requesting Physician: Ligia Wells MD Admitting Provider: Rehan Barros DO Attending Provider: Ligia Wells MD Primary Care Provider: Katherine Jason MD Consult Narrative History of present illness: 78-year-old female with a PMH of congestive heart failure, thyroid cancer status post thyroidectomy on levothyroxine, history of squamous cell carcinoma of the neck, Crohn's disease, gout, prediabetes, depression, and cognitive impairment versus dementia who presented to the ED on 10/12/2024 due to headache. Her blood pressure was 216/97 on arrival with a heart rate of 44. EKG showed a sinus bradycardic rhythm with a right bundle branch block and increased QRS interval. Troponins were normal. The patient was admitted for symptomatic bradycardia and hypertensive urgency that required close monitoring and cardiac consultation. The patient is prescribed multiple home medications. Per the patient's family members at bedside, they believe that the patient may have incorrectly dosed 1 or more of her home medications, as they also mentioned that she has been forgetful and under a lot of stress lately. The ICU team was consulted for her bradycardia. cc:: cc: Ligia Wells MD Review of Systems Review of Systems Narrative Review of Systems: Review of Systems: -General: Denies fevers, chills. - HEENT: Denies heasache, congestion, or sore throat. -Cardiac: Denies chest pain or palpitations. -Pulmonary: Denies shortness of breath or cough. -GI: Endorses midepigastric pain. -: Denies dysuria, hematuria, frequency, or urgency. -MSK: Denies pain in the extremities, joints, or myalgias. -Neuro: Denies weakness, numbness, vision changes, or speech difficulty. Exam Vital Signs Temp Pulse Resp BP Pulse Ox 96.7 F L 106 H 21 H 145/67 H 98 10/13/24 08:00 10/13/24 08:21 10/13/24 08:00 10/13/24 10:00 10/13/24 08:00 Narrative Exam General: Anxious appearing woman. Blunted affect. Neurologic: GCS 15. Alert and oriented x3, no gross neurological deficit, and patient able to move all 4 extremities. HEENT: Normocephalic, atraumatic, mucous membranes moist. Pupils reactive to light. Heart: Bradycardic rate in the 50s, grade 4 out of 4 systolic ejection murmur heard at the left sternal border second intercostal space. Lungs: Clear to auscultation bilaterally with no wheezing or crackles. Abdomen: Pain in the epigastric region on palpation, areas of firmness throughout, no hernias, no scars. Extremities: 2+ pitting edema in the lower extremities bilaterally up to the knee.. Skin: Warm. Dry. No rash or ecchymoses. Results Labs 10/14/24 04:56 10/14/24 06:35 Labs: Short CBC 10/12/24 10/13/24 Range/Units 20:30 06:29 WBC 6.6 9.6 D (3.6-11.0) Thou/mm3 Hgb 12.7 15.6 D (12.0-16.0) g/dL Hct 37.3 45.4 (36.0-46.0) % Plt Count 187 206 (140-440) Thou/mm3 BMP 10/12/24 10/13/24 20:30 04:48 Sodium 146 H 142 Potassium 2.9 L 3.9 D Chloride 103 104 Carbon Dioxide 32.7 H 27.1 BUN 11 9 Creatinine 0.8 0.7 Glucose 96 128 H Calcium 8.9 8.8 Cardiac Enzymes 10/12/24 10/13/24 10/13/24 Range/Units 20:30 00:30 04:48 Troponin I 0.020 0.023 0.020 (0.0-0.045) ng/mL Liver Function 10/12/24 10/13/24 Range/Units 20:30 04:48 Total Bilirubin 0.8 1.0 (0.3-1.2) mg/dL AST 25 33 (0-34) U/L ALT 20 21 (10-49) U/L Alkaline Phosphatase 82 83 (46-116) U/L Albumin 3.7 4.0 (3.4-4.8) gm/dL Urine 10/12/24 Range/Units 23:00 Urine Color Colorless A (Lt Yel-Yel) Urine Clarity Clear (Clear/Hazy) Urine pH 7.5 H (5.0-7.0) Ur Specific [place] 1.007 (1.001-1.035) Urine Protein Negative (Neg - Trace) Urine Glucose (UA) Negative (Negative) Quality Measures Quality Measures none Advance care planning discussed with:: child (Son) Medications Home Medications and Allergies Home Medications ?Medication ?Instructions ?Recorded ?Confirmed ?Type allopurinol 100 mg tablet 100 mg PO QDAY #0 tabs 04/23/14 10/13/24 History (Zyloprim) lovastatin 20 mg tablet 40 mg PO HS #0 tabs 04/23/14 10/13/24 History amitriptyline 10 mg tablet 10 mg PO QHSPRN PRN Anxiety ##90 11/29/16 10/13/24 History hydrochlorothiazide 25 mg tablet 25 mg PO QAM 02/19/20 10/13/24 History levothyroxine 75 mcg tablet 88 mcg PO QAM 02/20/22 10/13/24 History Allergies Allergy/AdvReac Type Severity Reaction Status Date / Time No Known Allergies Allergy Verified 05/18/22 16:16 Visit Medications Acetaminophen (Acetaminophen 325 Mg Tablet) 650 mg PO Q6H PRN PRN Reason: PAIN SCALE 1-3 (mild Stop: 11/12/24 02:30 Last Admin: 10/13/24 11:24 Dose: 650 mg Hydrocodone Bitart/Acetaminophen (Hydrocodone/Apap 10/325 Tab) 1 tab PO Q6H PRN PRN Reason: PAIN SCALE 4-6 (Moderate Stop: 10/18/24 02:30 Allopurinol (Allopurinol 100 Mg Tablet) 100 mg PO QDAY [facility] Stop: 11/12/24 10:14 Last Admin: 10/13/24 10:52 Dose: Not Given Atropine Sulfate (Atropine Sulf Inj 0.1 Mg/Ml Syr 10 Ml) 0.5 mg IVP Q5MIN PRN PRN Reason: HR<40 and symptomatic Stop: 11/12/24 06:55 Furosemide (Furosemide Inj 10 Mg/Ml 4ml Vial) 40 mg IVP QDAY [facility] Stop: 11/12/24 08:59 Last Admin: 10/13/24 08:20 Dose: 40 mg Heparin Sodium (Porcine) (Heparin Sod Inj 5000 Unit/Ml Vial) 5,000 unit SC Q12HR [facility] Stop: 10/27/24 08:59 Last Admin: 10/13/24 08:20 Dose: 5,000 unit Hydralazine HCl (Hydralazine Inj 20 Mg/Ml Vial) 10 mg IVP Q6H PRN PRN Reason: Systolic >180, HR <75 Stop: 11/12/24 05:13 Last Admin: 10/13/24 06:35 Dose: 10 mg Hydralazine HCl (Hydralazine Hcl 25 Mg Tablet) 25 mg PO Q8H [facility] Stop: 11/12/24 11:59 Levothyroxine Sodium (Levothyroxine Sodium 88 Mcg Tablet) 88 mcg PO ACBR [facility] Stop: 11/12/24 05:59 Last Admin: 10/13/24 05:12 Dose: Not Given Morphine Sulfate (Morphine Sulf Inj 10 Mg/Ml Vial) 1 mg IVP Q6H PRN PRN Reason: PAIN SCALE 7-10 (Severe Stop: 10/18/24 02:30 Last Admin: 10/13/24 04:55 Dose: 1 mg Ondansetron HCl (Ondansetron Inj 2 Mg/Ml Inj 2 Ml) 4 mg IVP Q4HR PRN; Protocol PRN Reason: NAUSEA OR VOMITING Stop: 11/12/24 02:30 Last Admin: 10/13/24 11:25 Dose: 4 mg Scopolamine (Scopolamine 1 Mg Tdsy) 1 mg TOP Q3D PRN; Protocol PRN Reason: NAUSEA OR VOMITING Stop: 11/12/24 08:59 Sennosides (Senna Tablet) 1 tab PO QDAY [facility]; Protocol Stop: 11/12/24 08:59 Last Admin: 10/13/24 08:31 Dose: Not Given Simethicone (Simethicone 80 Mg Chew) 80 mg PO QID PRN PRN Reason: GAS Stop: 11/12/24 02:39 Discontinued Medications Acetaminophen (Acetaminophen 325 Mg Tablet) 650 mg PO X1 ONE Stop: 10/12/24 22:11 Last Admin: 10/12/24 22:36 Dose: 650 mg Acetaminophen (Acetaminophen 325 Mg Tablet) 650 mg PO X1 ONE Stop: 10/12/24 22:11 Last Admin: 10/12/24 22:24 Dose: Not Given Atropine Sulfate (Atropine Sulf Inj 1 Mg/Ml Vial) 0.5 mg IVP Q5MIN PRN PRN Reason: HR<40 and symptomatic Stop: 11/12/24 05:29 Hydralazine HCl (Hydralazine Inj 20 Mg/Ml Vial) 10 mg IVP X1 ONE Stop: 10/12/24 20:37 Last Admin: 10/12/24 20:46 Dose: 10 mg Hydralazine HCl (Hydralazine Inj 20 Mg/Ml Vial) 10 mg IVP X1 ONE Stop: 10/12/24 21:28 Last Admin: 10/12/24 22:06 Dose: 10 mg Hydralazine HCl (Hydralazine Hcl 25 Mg Tablet) 25 mg PO Q8H PRN PRN Reason: SBP>170mmHg Stop: 11/12/24 03:05 Hydralazine HCl (Hydralazine Inj 20 Mg/Ml Vial) 20 mg IVP X1 ONE Stop: 10/13/24 07:34 Last Admin: 10/13/24 08:21 Dose: 20 mg Potassium Chloride (Kcl Ivpb) 10 meq in 100 mls @ 100 mls/hr IV Q1HR BRITTANI Stop: 10/13/24 02:59 Last Admin: 10/13/24 02:14 Dose: 100 mls/hr Magnesium Sulfate (Magnesium Sulfate Ivpb) 2 gm in 50 mls @ 25 mls/hr IV X1 ONE Stop: 10/13/24 00:51 Last Infusion: 10/13/24 01:23 Dose: Infused Sodium Chloride (Ns) 1,000 mls @ 999 mls/hr IV .Q1H1M ONE Stop: 10/12/24 23:55 Last Infusion: 10/13/24 02:45 Dose: Infused Magnesium Sulfate (Magnesium Sulfate Ivpb) 4 gm in 50 mls @ 12.5 mls/hr IV X1 ONE Stop: 10/13/24 06:38 Last Admin: 10/13/24 02:45 Dose: 12.5 mls/hr Ondansetron HCl (Ondansetron Inj 2 Mg/Ml Inj 2 Ml) 4 mg IVP Q6H PRN; Protocol PRN Reason: NAUSEA OR VOMITING Stop: 11/12/24 02:30 Potassium Chloride (Potassium Chloride 10% 20 Meq/15 Ml Udc) 40 meq PO X1 ONE Stop: 10/12/24 22:53 Last Admin: 10/12/24 23:20 Dose: 40 meq Sennosides (Senna Tablet) 1 tab PO QDAY PRN; Protocol PRN Reason: constipation Stop: 11/12/24 02:30 Assessment & Plan Plan Summary Liz is a 78-year-old female with a past medical history of thyroid cancer status post thyroidectomy, congestive heart failure, Crohn's disease, gout, prediabetes, depression and mild cognitive impairment who presented to the ED with a headache and a blood pressure of 216/97. The ICU team was consulted for her bradycardia. Neuro #Mild cognitive impairment versus dementia - Per the patient's family members at bedside the patient has been forgetful recently and asking the same questions repeatedly - On examination the patient had a flattened affect Plan: - Follow-up with primary team Cardiac #Symptomatic bradycardia - Patient's heart rate is in the 50s on consultation evaluation Plan: - Continue to monitor - The patient's heart rate is in the 30s, recommend administration of atropine at discretion of MD/DO physician #Hypertensive emergency #Hypertension - Patient's blood pressure was 216/97 on presentation Plan: - Follow-up with primary team #History of congestive heart failure - Per family members at bedside the patient had a workup at [facility] for chest discomfort 1.5 months ago and was discharged on an unconfirmed hypertensive medication that they believe the patient may have incorrectly dosed for herself. - Echo has been ordered per the primary team Plan: - Follow-up with primary team #Severe electrolyte abnormalities - Patient presenting with low potassium and low magnesium Plan: - Follow-up with primary team Pulmonary -No pertinent problems. GI #Chronic diarrhea #History of Crohn's disease? Patient states that she has been having diarrhea for the past month, 3-4 bowel movements a day Has history of Crohn's disease apparently but does not take any medications Has been referred to a advertising intern in [place] but has not followed up Plan: - Follow-up with primary team Renal -No pertinent problems Infectious Disease -No pertinent problems. Endocrine #Squamous cell carcinoma of the neck #Thyroid cancer status post thyroidectomy - Known history of hypothyroidism post thyroidectomy - Patient takes levothyroxine at home Plan: - Follow-up with primary team #Prediabetes - Glucose 128 10/13/2024 Plan: - Follow-up with primary team Heme -No pertinent problems. MSK -No pertinent problems. Skin -No pertinent problems. Urogenital #Gout - Patient takes allopurinol at home Plan: - Follow-up with primary team Psych #Depression - History of depression Plan: - Follow-up with primary team Lines/Access - Peripheral IVs Nutrition Sedation/Analgesia - Ondansetron help per primary team DVT Prophylaxis - Heparin 5000 every 12 hours - Follow-up with primary team GI Prophylaxis - Senna, simethicone - Follow-up with primary team Code Status Disposition: Patient is bradycardic but stable. Will consider atropine if rate drops into the 30s after evaluation with attending physician. Patient was seen and discussed with my attending Dr. Angela Langford MD and my senior resident Dr. Giovanna Keller PGY-3. Chino Davidson DO PGY-1. Attending Provider Attestation/Addendum Patient seen and examined with resident team. Agree with above. In brief this is 78-year-old female who was admitted to the hospital for dizziness and hypertensive urgency. During the course of her stay she has been noted to have bradycardia. She bradycardia down to the high 30s at one point in time. For this reason the ICU team was consulted. The patient is noted to be on multiple BP meds at home and it is unclear due to some dementia whether or not she has been taking his medications appropriately. She also has an underlying history of Crohn's disease and the family states that she has had some increase in diarrhea over the last week. Her hypertension is currently controlled however heart rate is in the mid 40s to low 50s at times. On physical exam she is awake alert but appears forgetful. Normal body habitus. Heart rate regular rhythmic bradycardic, lungs clear auscultation bilaterally, no increased work of breathing, abdomen soft nontender, bowel sounds present, no focal deficits, pulses palpable, no clubbing or mottling. An EKG was obtained and a P wave was noted for every QRS complex therefore she appears to have sinus bradycardia. At this point in time she has a good blood pressure with a systolic in the 130s and 140s. Her heart rate is usually in the high 40s low 50s. At this point in time she does not require any atropine nor did she require a dopamine drip. Would recommend cardiology eval to see if she does require any form of pacemaker intervention in the future. However for now would allow time for washout of her BP meds with AV cody effect. Case discussed with family at bedside Case discussed with ICU team Discussed with primary service Labs, imaging and records reviewed Approximately 55 minutes required for eval, exam, review, intervention, discussion formulation of plan for this pleasant elderly female with significant bradycardia.
--- NOTE | 2024-10-13 17:23 | PC.SS ---
[employer] conducted bedside contact with the patient conduct initial assessment and to discuss discharge planning.? At bedside with patient was spouse, Yehuda Rivas .? Information obtained from the patient?s spouse.? Patient resides at home with spouse.? Patient utilizes a walker to assist with ambulation.? Patient does not require the use of home oxygen.? Patient possesses ability to complete ADL?s independently.? Patient?s surrogate medical decision maker is spouse, Yehuda Rivas.? Patient?s PCP is Dr. Jason.? Patient possesses new heavy mobile equipment repairer in [place]; spouse could not recall name.? Patient does not participate with dialysis.? Patient utilizes [facility] for medication services.? Plan is for the patient to return home at the time of discharge.? Family will provide transportation on behalf of the patient. ?If home health recommended no preferred agency identified.? No further discharge needs identified by the patient.? No further intervention required at this time, social service worker will be available to address any further concerns.? Next of Kin: Yehuda Rivas D/C Plan: Home
--- NOTE | 2024-10-13 20:30 | PD.IMCONS ---
HPI Data of Consult Requesting Physician: Ligia Wells MD Primary Care Provider: Katherine Jason MD Consult Narrative Reason for consult: Diarrhea History of present illness: 78 years old female evaluated the request of the internal medicine team for chronic diarrhea She does have a history of inflammatory bowel disease/Crohn disease and has not taken medicine for quite some time and is in the process of getting referred to [place] for the care of to be under a auctioneer art Patient was admitted with hypertensive emergency congestive heart failure and gross electrolyte abnormalities cc:: cc: Ligia Wells MD Review of Systems Review of Systems Systems Reviewed: All systems reviewed, normal except as documented Past Medical History Surgical History OTHER SURGICAL HX: As in the history of present illness Meds Home Medications and Allergies Home Medications ?Medication ?Instructions ?Recorded ?Confirmed ?Type allopurinol 100 mg tablet 100 mg PO QDAY #0 tabs 04/23/14 10/13/24 History (Zyloprim) lovastatin 20 mg tablet 40 mg PO HS #0 tabs 04/23/14 10/13/24 History amitriptyline 10 mg tablet 10 mg PO QHSPRN PRN Anxiety ##90 11/29/16 10/13/24 History hydrochlorothiazide 25 mg tablet 25 mg PO QAM 02/19/20 10/13/24 History levothyroxine 75 mcg tablet 88 mcg PO QAM 02/20/22 10/13/24 History Allergies Allergy/AdvReac Type Severity Reaction Status Date / Time No Known Allergies Allergy Verified 05/18/22 16:16 Exam Vital Signs Temp Pulse Resp BP Pulse Ox O2 Del Method 97.5 F 50 L 24 H 158/72 H 96 Room Air 10/13/24 16:13 10/13/24 16:13 10/13/24 16:13 10/13/24 16:13 10/13/24 16:13 10/13/24 16:13 Routine Respiratory Exam Comments: Scattered rhonchi Routine Abdominal Exam Comments: Soft nontender Results Labs 10/14/24 04:56 10/14/24 06:35 Labs: Short CBC 10/12/24 10/13/24 Range/Units 20:30 06:29 WBC 6.6 9.6 D (3.6-11.0) Thou/mm3 Hgb 12.7 15.6 D (12.0-16.0) g/dL Hct 37.3 45.4 (36.0-46.0) % Plt Count 187 206 (140-440) Thou/mm3 BMP 10/12/24 10/13/24 20:30 04:48 Sodium 146 H 142 Potassium 2.9 L 3.9 D Chloride 103 104 Carbon Dioxide 32.7 H 27.1 BUN 11 9 Creatinine 0.8 0.7 Glucose 96 128 H Calcium 8.9 8.8 Cardiac Enzymes 10/12/24 10/13/24 10/13/24 Range/Units 20:30 00:30 04:48 Troponin I 0.020 0.023 0.020 (0.0-0.045) ng/mL Liver Function 10/12/24 10/13/24 Range/Units 20:30 04:48 Total Bilirubin 0.8 1.0 (0.3-1.2) mg/dL AST 25 33 (0-34) U/L ALT 20 21 (10-49) U/L Alkaline Phosphatase 82 83 (46-116) U/L Albumin 3.7 4.0 (3.4-4.8) gm/dL Urine 10/12/24 Range/Units 23:00 Urine Color Colorless A (Lt Yel-Yel) Urine Clarity Clear (Clear/Hazy) Urine pH 7.5 H (5.0-7.0) Ur Specific [place] 1.007 (1.001-1.035) Urine Protein Negative (Neg - Trace) Urine Glucose (UA) Negative (Negative) Assessment and Plan Additional Assessment & Plan Additional Plan: # Chronic diarrhea most likely due to underlying inflammatory bowel disease Suggest CRP ANCA antibody Fecal calprotectin Celiac disease panel Stool culture and sensitivity Stool for Gram stain and occult blood Further evaluation after above At some point she will need a colonoscopy with intubation of the terminal ileum for biopsies and reassess the disease Which can be done as an outpatient when she recovers from her current medical issues If she wants to follow-up with me I will be happy to follow otherwise she can be followed by the auctioneer art in [place] Other medical problems include Hypertensive emergency Congestive heart failure Electrolyte imbalance, hypokalemia Thank you for the opportunity to participate in the care of this
--- NOTE | 2024-10-13 20:57 | PC.NURSE ---
PER DR. GRIGGS, NO F/C REQUIRED IF PT REMAINS ON PUREWICK FOR STRICT I/O'S. PUREWICK IN PLACE, DRAINING PROPERLY.
[2024-10-14] VITALS (12 sets, daily range): BP systolic 112–216; BP diastolic 61–108; PULSE 5–114; RESP 12–18; TEMP 35.9–36.4; O2SAT 94–99
--- NOTE | 2024-10-14 01:00 | PC.NURSE ---
RECEIVED CALL FROM [facility] [facility], PT'S OXYGEN SATS AT 87%. UPON ENTERING PT ROOM, PT WITH EYES CLOSED, NO SIGNS OF DISTRESS. PLACED ON 2L NC. O2 SATS NOW AT 99%
[2024-10-14 05:43] LABS: Basophils # (Auto) 0.0 Thou/mm3 (0.0-0.2); Basophils % (Auto) 0 % (0-2.5); Eosinophils # (Auto) 0.0 Thou/mm3 (0.0-0.5); Eosinophils % (Auto) 0 % (0-10); Hematocrit 43.5 % (36.0-46.0); Hemoglobin 15.0 g/dL (12.0-16.0); Immature Granulocytes Auto 0.03 Thou/mm3 (0.00-0.00); Lymphocytes # (Auto) 1.6 Thou/mm3 (1.0-4.8); Lymphocytes % (Auto) 18 % (10-50); Mean Corpuscular HGB Conc 34.5 g/dl (31.0-37.0); Mean Corpuscular Hemoglobin 31.8 pg (25.0-35.0); Mean Corpuscular Volume 92 fL (80-100); Monocytes # (Auto) 0.9 Thou/mm3 (0.0-0.8); Monocytes % (Auto) 10 % (0-12); Neutrophils # (Auto) 6.4 Thou/mm3 (1.8-7.7); Neutrophils % (Auto) 71 % (37-80); Nucleated Red Blood Cell # 0.00 Thou/mm3 (0.00-0.00); Nucleated Red Blood Cell % 0 /100 WBC (0); Platelet Count 195 Thou/mm3 (140-440); RDW Standard Deviation 47.3 fL (36.4-46.3); Red Blood Count 4.72 Miln/mm3 (4.00-5.20); White Blood Count 9.0 Thou/mm3 (3.6-11.0)
[2024-10-14] MEDS: LEVOTHYROXINE SODIUM 88 MCG TABLET PO (05:55)
[2024-10-14] MEDS: ACETAMINOPHEN 325 MG TABLET 650 MG PO (06:56)
[2024-10-14 07:08] LABS: Alanine Aminotransferase 17 U/L (10-49); Albumin, Serum 3.9 gm/dL (3.4-4.8); Albumin/Globulin Ratio 1.8 (1.2-2.2); Alkaline Phosphatase 83 U/L (46-116); Anion Gap 8 (7-16); Aspartate Amino Transferase 25 U/L (0-34); BUN/Creatinine Ratio 18 Ratio (12-20); Bilirubin,Total 1.1 mg/dL (0.3-1.2); Blood Urea Nitrogen 16 mg/dL (9-23); C-Reactive Protein 0.6 mg/dL (0.0-0.9); Calcium 8.9 mg/dL (8.3-10.6); Calcium (Corrected) 9.0 mg/dL (8.5-10.1); Carbon Dioxide 34.3 mMol/L (20.0-31.0); Chloride 99 mMol/L (98-107); Creatinine (Component) 0.9 mg/dL (0.6-1.3); Estimated Creatinine Clearance 51.2 mL/min (>60); Globulin 2.2 gm/dL (2.3-3.5); Glucose 122 mg/dL (74-106); Osmolality,Calculated 283 (275-295); Potassium 3.7 mMol/L (3.4-5.1); Sodium 141 mMol/L (136-145); Total Protein 6.1 gm/dL (5.7-8.2); eGFR > 60 See Note
--- NOTE | 2024-10-14 08:10 | PD.IMPROG ---
Documentation for date of: 10/14/24 Subjective Subjective Interval history: From cardiac standpoint Lightheadedness syncope noted Heart rate varies between 48 to sinus rhythm Patient appears hemodynamically stable Exam Vital Signs Temp Pulse Resp BP Pulse Ox O2 Del Method 96.9 F 47 L 12 154/61 H 97 Room Air 10/14/24 04:00 10/14/24 05:55 10/14/24 04:00 10/14/24 05:55 10/14/24 04:00 10/14/24 04:00 Routine HEENT Exam Head: Present normocephalic and atraumatic Eye: Present EOMI and PERRL ENT: Present mucous membranes moist Routine Neck Exam Neck: Present supple and trachea midline Routine Respiratory Exam Respiratory: Present chest non-tender, lungs clear, normal breath sounds and no resp distress Routine Cardiovascular Exam Cardiovascular: Present RRR Routine Abdominal Exam Abdominal: Present soft and normoactive bowel sounds Routine Extremities Exam Extremities: Present full ROM Routine Skin Exam Skin: Present intact, dry and warm Routine Neurological Exam Neurological: Present alert, oriented X3 and CN II-XII intact Routine Psychiatric Exam Psychiatric: Present normal affect and normal thought process Objective Labs 10/14/24 04:56 10/14/24 06:35 Labs: Laboratory Results - last 24 hr 10/14/24 10/14/24 04:56 06:35 WBC 9.0 RBC 4.72 Hgb 15.0 Hct 43.5 MCV 92 MCH 31.8 MCHC 34.5 RDW Std Deviation 47.3 H Plt Count 195 Neut % (Auto) 71 Lymph % (Auto) 18 [place] % (Auto) 10 Eos % (Auto) 0 Baso % (Auto) 0 Neut # (Auto) 6.4 Lymph # (Auto) 1.6 [place] # (Auto) 0.9 H Eos # (Auto) 0.0 Baso # (Auto) 0.0 Immature Gran # (Auto) 0.03 H Absolute Nucleated RBC 0.00 Immature Gran % 0 Nucleated RBC % 0 Sodium 141 Potassium 3.7 Chloride 99 Carbon Dioxide 34.3 H Anion Gap 8 BUN 16 Creatinine 0.9 Estim Creat Clear Calc 51.2 L eGFR > 60 BUN/Creatinine Ratio 18 Glucose 122 H Calculated Osmolality 283 Calcium 8.9 Corrected Calcium 9.0 Total Bilirubin 1.1 AST 25 ALT 17 Alkaline Phosphatase 83 C-Reactive Prot, Quant 0.6 Total Protein 6.1 Albumin 3.9 Globulin 2.2 L Albumin/Globulin Ratio 1.8 Assessment & Plan A&P Narrative pt comfortable HR 47-52 BP stable no further cardiac symptonps ok to d/c home f/u as outpt Time Spent With Patient Time: Total time spent is greater than 50% in coordination of care (as documented) at patient's floor/unit and/or counseling patient:
--- NOTE | 2024-10-14 08:38 | ESPR_ITS ---
Documentation for date of: 10/14/24 Subjective Subjective Interval history: 78-year-old female with past medical history of congestive heart failure, thyroid cancer status post thyroidectomy on thyroid replacement, squamous cell carcinoma of the neck, Crohn's disease, gout, prediabetes, depression, mild cognitive impairment presenting to the ED on 10/13 due to having a headache. Patient's is bedside and provided additional history; apparently patient's blood pressure was elevated at home. Of note, patient denies having any chest pain, palpitations but does state that she has ongoing headache, abdominal pain and weakness. Her states that there was some issues with what medication she took this afternoon due to a mishap with the pill container. Patient's also states that for the past week or so she has been more confused (sounds more like a misunderstanding). Patient states that her primary care physician is Dr. Jason and she follows up with cardiology in [place] Dr. Gallo and [place]. Apparently she has had a left heart cath which was benign and she did not require any stent placement. Patient does have some degree of heart failure and she has been told she has a murmur in the past. Patient also apparently been told that she has Crohn's disease although she is not on any medications currently; was referred to a exploitation analyst in [place] but has yet to follow-up. Patient has been having diarrhea for the past month and using the bathroom about 3-4 times a day; denies recent antibiotic use. 10/13/24: Patient was admitted overnight. Seen and examined at bedside. Reports headache, nausea, mild abdominal pain on palpation, and anxiety. Denies chest pain, SOB or fever. BP elevated this morning 182/73. HR is ranging from 30s to 100s. Family at bedside and reports that patient has been managing her own medication, but pills are missing in containers and unknown if patient has taken them or not. On discharge from [facility], per family patient was discontinued on many BP medications like lisinopril and verapamil, but unknown if patient is still taking. Spoke with who reports that she has been diagnosed with Crohn's for years and was on medication and Crohn's was stable , and lost follow up to medication. He does not remember the name of the provider she saw for Crohns. 10/14/24: Patient seen and examined at bedside with in the room. Patient is feeling much better today, reports less nausea and improved headache. Denies chest pain, SOB, or palpitations. Had a soft stool earlier today, denies watery diarrhea. No new complaints. HR high 40s-low 50s overnight. BP low 161-154/60-70 overnight. Exam Vital Signs Temp Pulse Resp BP Pulse Ox O2 Del Method 96.9 F 47 L 12 154/61 H 97 Room Air 10/14/24 04:00 10/14/24 05:55 10/14/24 04:00 10/14/24 05:55 10/14/24 04:00 10/14/24 04:00 Narrative Exam General: AOx3, no acute distress HEENT: NC/AT, mucous membranes moist, bilateral sclera anicteric Cardiovascular: regular rate and rhythm, S1/S2 present, grade 3 systolic ejection murmur Pulmonary: clear to auscultation bilaterally, no rales/rhonchi/wheezes Abdominal: soft, non-distended, no rebound/guarding, mild tenderness to palpation, bowel sounds present Extremities: mild BLE pitting edema Skin: warm and dry, intact, no rashes Neuro CN II-XII grossly intact, no focal deficits, alert, following commands Objective Labs 10/14/24 04:56 10/14/24 06:35 Labs: Laboratory Results - last 24 hr 10/14/24 10/14/24 04:56 06:35 WBC 9.0 RBC 4.72 Hgb 15.0 Hct 43.5 MCV 92 MCH 31.8 MCHC 34.5 RDW Std Deviation 47.3 H Plt Count 195 Neut % (Auto) 71 Lymph % (Auto) 18 [place] % (Auto) 10 Eos % (Auto) 0 Baso % (Auto) 0 Neut # (Auto) 6.4 Lymph # (Auto) 1.6 [place] # (Auto) 0.9 H Eos # (Auto) 0.0 Baso # (Auto) 0.0 Immature Gran # (Auto) 0.03 H Absolute Nucleated RBC 0.00 Immature Gran % 0 Nucleated RBC % 0 Sodium 141 Potassium 3.7 Chloride 99 Carbon Dioxide 34.3 H Anion Gap 8 BUN 16 Creatinine 0.9 Estim Creat Clear Calc 51.2 L eGFR > 60 BUN/Creatinine Ratio 18 Glucose 122 H Calculated Osmolality 283 Calcium 8.9 Corrected Calcium 9.0 Total Bilirubin 1.1 AST 25 ALT 17 Alkaline Phosphatase 83 C-Reactive Prot, Quant 0.6 Total Protein 6.1 Albumin 3.9 Globulin 2.2 L Albumin/Globulin Ratio 1.8 Quality Measures Quality Measures none Advance care planning discussed with:: patient Assessment & Plan Assessment Current Active Medications: Generic Name Dose Route Start Last Admin Trade Name Freq PRN Reason Stop Dose Admin Acetaminophen 650 mg 10/13/24 02:31 10/14/24 06:56 Acetaminophen 325 Mg Tablet PO 11/12/24 02:30 650 mg Q6H PRN Administration PAIN SCALE 1-3 (mild Hydrocodone Bitart/Acetaminophen 1 tab 10/13/24 02:31 Hydrocodone/Apap 10/325 Tab PO 10/18/24 02:30 Q6H PRN PAIN SCALE 4-6 (Moderate Allopurinol 100 mg 10/13/24 10:15 10/13/24 10:52 Allopurinol 100 Mg Tablet PO 11/12/24 10:14 Not Given QDAY BRITTANI Atropine Sulfate 0.5 mg 10/13/24 06:56 Atropine Sulf Inj 0.1 Mg/Ml Syr 10 Ml IVP 11/12/24 06:55 Q5MIN PRN HR<40 and symptomatic Heparin Sodium (Porcine) 5,000 unit 10/13/24 09:00 10/13/24 20:36 Heparin Sod Inj 5000 Unit/Ml Vial SC 10/27/24 08:59 5,000 unit Q12HR BRITTANI Administration Hydralazine HCl 10 mg 10/13/24 05:14 10/13/24 06:35 Hydralazine Inj 20 Mg/Ml Vial IVP 11/12/24 05:13 10 mg Q6H PRN Administration Systolic >180, HR <75 Hydralazine HCl 25 mg 10/14/24 06:00 10/14/24 05:55 Hydralazine Hcl 25 Mg Tablet PO 11/13/24 05:59 25 mg Q8HR BRITTANI Administration Levothyroxine Sodium 88 mcg 10/13/24 06:00 10/14/24 05:55 Levothyroxine Sodium 88 Mcg Tablet PO 11/12/24 05:59 88 mcg ACBR BRITTANI Administration Morphine Sulfate 1 mg 10/13/24 02:31 10/13/24 04:55 Morphine Sulf Inj 10 Mg/Ml Vial IVP 10/18/24 02:30 1 mg Q6H PRN Administration PAIN SCALE 7-10 (Severe Ondansetron HCl 4 mg 10/13/24 09:02 10/13/24 11:25 Ondansetron Inj 2 Mg/Ml Inj 2 Ml IVP 11/12/24 02:30 4 mg Q4HR PRN Administration NAUSEA OR VOMITING Protocol Scopolamine 1 mg 10/13/24 08:57 Scopolamine 1 Mg Tdsy TOP 11/12/24 08:59 Q3D PRN NAUSEA OR VOMITING Protocol Sennosides 1 tab 10/13/24 09:00 10/13/24 08:31 Senna Tablet PO 11/12/24 08:59 Not Given QDAY BRITTANI Protocol Simethicone 80 mg 10/13/24 02:40 Simethicone 80 Mg Chew PO 11/12/24 02:39 QID PRN GAS Plan 78-year-old female with past medical history of congestive heart failure, thyroid cancer status post thyroidectomy on thyroid replacement, squamous cell carcinoma of the neck, Crohn's disease, gout, prediabetes, depression, mild cognitive impairment presenting to the ED on 10/13 due to having a headache will be admitted for symptomatic bradycardia and hypertensive emergency requiring close monitoring and cardiology consultation. #Chronic diarrhea #History of Crohn's disease? Patient states that she has been having diarrhea for the past month, 3-4 bowel movements a day Spoke with , patient has had a hx of Crohn's disease for years and was on medication, was told Crohn's was stable, and lost follow up to medication. Has been referred to a exploitation analyst in [place] but has not followed up CRP wnl, Plan: -F/u stool WBC/culture/calprotectin, Giardia, C diff, ESR, ANCA -Dr. Tompkins, GI consulted appreciate recommendations-- will need colonoscopy for biopsies and reassessment of disease which can be done outpatient #Symptomatic bradycardia, resolved As noted above, patient presented with symptomatic bradycardia, weakness/dizziness initially, with HR 40s-mid 50s in ED with stable blood pressure. Patient is on metoprolol succinate 25 mg along with amitriptyline which could potentially be causing cardiac arrhythmia//bradycardia, but unsure of which medications patient is taking. Will most likely need to stop amitriptyline on discharge. Patient likely has sick sinus syndrome with HR varying from mid 40s-low 100s with possible medication self-administration error. Recently admitted to [facility], BP meds like lisinopril and verapamil were stopped, but unsure if patient resumed or stopped. Patient does have extensive cardiac history and follows with Dr. Gallo and [place] BP and HR has been stable without symptoms. Plan: -Telemetry monitoring -Dr. Wells, cardiology consulted appreciate recommendations-- hold all rate controlling agents, should follow up outpatient after discharge -Possible need for pacemaker -Will consider atropine versus transcutaneous pacing if patient becomes hypotensive -PT ordered, will likely need home health PT #Hypertensive emergency, resolved #Hypertension Patient presented in hypertensive emergency with a systolic 216 diastolic 97, given hydralazine IV 10 mg x2 in ED Had symptoms of headache which could be contributed to the hypertensive emergency Patient is on home hydrochlorothiazide 25 mg and metoprolol succinate 25 BP controlled with hydralazine. Plan: -Hydralazine 25 mg q8h -Hold home BP medication for now #History of congestive heart failure, unknown EF [place] [employer] class II Patient apparently had a workup at [facility] recently for chest discomfort but all findings were negative She has some degree of heart failure as noted by her home medications but she is unsure of her ejection fraction On examination, patient does have +1 pitting edema in lower extremities but no JVD, no crackles Initial troponin 0.023 and BNP of 427 Chest x-ray does not show any signs of vascular congestion Discontinued Lasix, patient does not appear to be fluid overloaded Plan: -Daily weight -Strict I's and O's -Fluid restriction of 1800 mL -Echo ordered #Severe electrolyte abnormalities Patient presented with low potassium and low magnesium likely from 1 mo hx of diarrhea Plan: -Replete as needed #Thyroid cancer status post thyroidectomy #Squamous cell carcinoma of the neck #Prediabetes #Depression #Gout Chronic medical conditions nonpertinent to the following presentation Plan: -Restarted patient's levothyroxine 88 mcg and allopurinol 100 mg -Hold amitriptyline for now -Will continue monitoring for any acute changes Hospital management: Lines: PIV, [place] Diet: Cardiac Bowel: Senna DVT prophylaxis: heparin q12 Disposition: telemetry, cardiology consulted for bradycardia CODE STATUS: Full Plan of care discussed with attending Dr. Jason, and PGY-2 Dr. Funes. Ange Posada, DO PGY-1 Internal Medicine Attending Provider Attestation/Addendum Patient seen and examined with resident physician Dr. Posada. Note reviewed, agree with findings and recommendations. Admitted with symptomatic bradycardia. Blood pressure seems to be on the better today. Spoke to Dr. Wells-since patient is asymptomatic and heart rate is a stable hold off on pacemaker for now. Regarding her diarrhea-patient on C. difficile precautions. Dr. Tompkins was consulted. Dr. Tompkins recommended colonoscopy as an outpatient as she has a GI specialist in [place]. If no intervention to be done-will plan for discharge tomorrow. Plan of care discussed with at bedside will discontinue metoprolol..
[2024-10-14] MEDS: HEPARIN SOD INJ 5000 UNIT/ML VIAL SC ×2 (09:47→21:11)
--- NOTE | 2024-10-14 12:40 | PC.PT ---
PT eval only. Patient is I with transfers and ambulation with AD. (Pls see PT eval notes.)
[2024-10-14 13:42] LABS: Sed Rate (ESR) 10 mm/hr (0-30)
--- NOTE | 2024-10-14 19:58 | ESPR_ITS ---
Documentation for date of: 10/14/24 Subjective Subjective Interval history: Case discussed with the medicine team I am not planning any invasive GI workup such as colonoscopy during his hospitalization Outpatient follow-up if the patient wishes to follow-up with me or see her director patient in [place] Exam Vital Signs Temp Pulse Resp BP Pulse Ox O2 Del Method 97.5 F 68 18 128/89 H 94 L Room Air 10/14/24 16:00 10/14/24 16:00 10/14/24 16:00 10/14/24 16:00 10/14/24 16:00 10/14/24 16:00 Objective Labs 10/14/24 04:56 10/14/24 06:35 Labs: Laboratory Results - last 24 hr 10/14/24 10/14/24 04:56 06:35 WBC 9.0 RBC 4.72 Hgb 15.0 Hct 43.5 MCV 92 MCH 31.8 MCHC 34.5 RDW Std Deviation 47.3 H Plt Count 195 Neut % (Auto) 71 Lymph % (Auto) 18 [place] % (Auto) 10 Eos % (Auto) 0 Baso % (Auto) 0 Neut # (Auto) 6.4 Lymph # (Auto) 1.6 [place] # (Auto) 0.9 H Eos # (Auto) 0.0 Baso # (Auto) 0.0 Immature Gran # (Auto) 0.03 H Absolute Nucleated RBC 0.00 Immature Gran % 0 Nucleated RBC % 0 ESR 10 Sodium 141 Potassium 3.7 Chloride 99 Carbon Dioxide 34.3 H Anion Gap 8 BUN 16 Creatinine 0.9 Estim Creat Clear Calc 51.2 L eGFR > 60 BUN/Creatinine Ratio 18 Glucose 122 H Calculated Osmolality 283 Calcium 8.9 Corrected Calcium 9.0 Total Bilirubin 1.1 AST 25 ALT 17 Alkaline Phosphatase 83 C-Reactive Prot, Quant 0.6 Total Protein 6.1 Albumin 3.9 Globulin 2.2 L Albumin/Globulin Ratio 1.8 Impressions Impression: Inflammatory bowel disease/Crohn's/UC relatively stable Outpatient follow-up Assessment & Plan A&P Narrative pt comfortable HR 47-52 BP stable no further cardiac symptonps ok to d/c home f/u as outpt Time Spent With Patient Time: Total time spent is greater than 50% in coordination of care (as documented) at patient's floor/unit and/or counseling patient:
[2024-10-14] MEDS: hydrALAZINE INJ 20 MG/ML VIAL 10 MG IVP (22:39)
[2024-10-15] VITALS (10 sets, daily range): BP systolic 127–167; BP diastolic 65–80; PULSE 45–93; RESP 13–21; TEMP 35.9–36.4; O2SAT 97–100; BMI 28.5
[2024-10-15] MEDS: LEVOTHYROXINE SODIUM 88 MCG TABLET PO (05:27)
[2024-10-15 06:38] LABS: Basophils # (Auto) 0.0 Thou/mm3 (0.0-0.2); Basophils % (Auto) 0 % (0-2.5); Eosinophils # (Auto) 0.0 Thou/mm3 (0.0-0.5); Eosinophils % (Auto) 0 % (0-10); Hematocrit 42.2 % (36.0-46.0); Hemoglobin 14.5 g/dL (12.0-16.0); Immature Granulocytes Auto 0.03 Thou/mm3 (0.00-0.00); Lymphocytes # (Auto) 1.3 Thou/mm3 (1.0-4.8); Lymphocytes % (Auto) 13 % (10-50); Mean Corpuscular HGB Conc 34.4 g/dl (31.0-37.0); Mean Corpuscular Hemoglobin 31.7 pg (25.0-35.0); Mean Corpuscular Volume 92 fL (80-100); Monocytes # (Auto) 0.7 Thou/mm3 (0.0-0.8); Monocytes % (Auto) 7 % (0-12); Neutrophils # (Auto) 8.5 Thou/mm3 (1.8-7.7); Neutrophils % (Auto) 80 % (37-80); Nucleated Red Blood Cell # 0.00 Thou/mm3 (0.00-0.00); Nucleated Red Blood Cell % 0 /100 WBC (0); Platelet Count 227 Thou/mm3 (140-440); RDW Standard Deviation 47.1 fL (36.4-46.3); Red Blood Count 4.57 Miln/mm3 (4.00-5.20); White Blood Count 10.5 Thou/mm3 (3.6-11.0)
[2024-10-15 06:54] LABS: Alanine Aminotransferase 12 U/L (10-49); Albumin, Serum 3.9 gm/dL (3.4-4.8); Albumin/Globulin Ratio 1.6 (1.2-2.2); Alkaline Phosphatase 76 U/L (46-116); Anion Gap 12 (7-16); Aspartate Amino Transferase 18 U/L (0-34); BUN/Creatinine Ratio 21 Ratio (12-20); Bilirubin,Total 0.8 mg/dL (0.3-1.2); Blood Urea Nitrogen 17 mg/dL (9-23); Calcium 9.1 mg/dL (8.3-10.6); Calcium (Corrected) 9.2 mg/dL (8.5-10.1); Carbon Dioxide 31.1 mMol/L (20.0-31.0); Chloride 97 mMol/L (98-107); Creatinine (Component) 0.8 mg/dL (0.6-1.3); Estimated Creatinine Clearance 56.8 mL/min (>60); Globulin 2.4 gm/dL (2.3-3.5); Glucose 148 mg/dL (74-106); Osmolality,Calculated 283 (275-295); Potassium 3.3 mMol/L (3.4-5.1); Sodium 140 mMol/L (136-145); Total Protein 6.3 gm/dL (5.7-8.2); eGFR > 60 See Note
--- NOTE | 2024-10-15 09:13 | ESPR_ITS ---
Documentation for date of: 10/15/24 Subjective Subjective Interval history: 78-year-old female with past medical history of congestive heart failure, thyroid cancer status post thyroidectomy on thyroid replacement, squamous cell carcinoma of the neck, Crohn's disease, gout, prediabetes, depression, mild cognitive impairment presenting to the ED on 10/13 due to having a headache. Patient's is bedside and provided additional history; apparently patient's blood pressure was elevated at home. Of note, patient denies having any chest pain, palpitations but does state that she has ongoing headache, abdominal pain and weakness. Her states that there was some issues with what medication she took this afternoon due to a mishap with the pill container. Patient's also states that for the past week or so she has been more confused (sounds more like a misunderstanding). Patient states that her primary care physician is Dr. Jason and she follows up with cardiology in [place] Dr. Gallo and [place]. Apparently she has had a left heart cath which was benign and she did not require any stent placement. Patient does have some degree of heart failure and she has been told she has a murmur in the past. Patient also apparently been told that she has Crohn's disease although she is not on any medications currently; was referred to a shingles roofer helper in [place] but has yet to follow-up. Patient has been having diarrhea for the past month and using the bathroom about 3-4 times a day; denies recent antibiotic use. 10/13/24: Patient was admitted overnight. Seen and examined at bedside. Reports headache, nausea, mild abdominal pain on palpation, and anxiety. Denies chest pain, SOB or fever. BP elevated this morning 182/73. HR is ranging from 30s to 100s. Family at bedside and reports that patient has been managing her own medication, but pills are missing in containers and unknown if patient has taken them or not. On discharge from [facility], per family patient was discontinued on many BP medications like lisinopril and verapamil, but unknown if patient is still taking. Spoke with who reports that she has been diagnosed with Crohn's for years and was on medication and Crohn's was stable , and lost follow up to medication. He does not remember the name of the provider she saw for Crohns. 10/14/24: Patient seen and examined at bedside with in the room. Patient is feeling much better today, reports less nausea and improved headache. Denies chest pain, SOB, or palpitations. Had a soft stool earlier today, denies watery diarrhea. No new complaints. HR high 40s-low 50s overnight. BP low 161-154/60-70 overnight. 10/15/24: Overnight, HR dropped to low 50s and BP systolic in low 200-210s/low 100s, given IV hydralazine 10 x1 and PO hydralazine 25 mg x1. Hydralazine 25 mg TID increased to 50 mg TID. Patient seen and examined at bedside with present. Patient is more confused than yesterday. Complains of new lower abdominal pain, and last BM early yesterday morning. reports she ate a little last night and during breakfast this morning. Denies chest pain, SOB, fever or urinary pain. K 3.3, repleted. Exam Vital Signs Temp Pulse Resp BP Pulse Ox O2 Del Method O2 Flow Rate 97.1 F 66 19 133/77 H 97 Nasal Cannula 2 10/15/24 08:00 10/15/24 08:00 10/15/24 08:00 10/15/24 08:00 10/15/24 08:00 10/15/24 08:00 10/15/24 08:00 Narrative Exam General: AOx2, no acute distress HEENT: NC/AT, mucous membranes moist, bilateral sclera anicteric Cardiovascular: regular rate and rhythm, S1/S2 present, grade 3 systolic ejection murmur Pulmonary: clear to auscultation bilaterally, no rales/rhonchi/wheezes Abdominal: soft, non-distended, no rebound/guarding, bowel sounds present, firm lower abdomen with tenderness to palpation Extremities: trace BLE pitting edema Skin: warm and dry, intact, no rashes Neuro CN II-XII grossly intact, no focal deficits, alert, following commands Objective Labs 10/15/24 05:31 10/15/24 05:31 Labs: Laboratory Results - last 24 hr 10/14/24 10/15/24 04:56 05:31 WBC 10.5 RBC 4.57 Hgb 14.5 Hct 42.2 MCV 92 MCH 31.7 MCHC 34.4 RDW Std Deviation 47.1 H Plt Count 227 D Neut % (Auto) 80 Lymph % (Auto) 13 [place] % (Auto) 7 Eos % (Auto) 0 Baso % (Auto) 0 Neut # (Auto) 8.5 H Lymph # (Auto) 1.3 [place] # (Auto) 0.7 Eos # (Auto) 0.0 Baso # (Auto) 0.0 Immature Gran # (Auto) 0.03 H Absolute Nucleated RBC 0.00 Immature Gran % 0 Nucleated RBC % 0 ESR 10 Sodium 140 Potassium 3.3 L Chloride 97 L Carbon Dioxide 31.1 H Anion Gap 12 BUN 17 Creatinine 0.8 Estim Creat Clear Calc 56.8 L eGFR > 60 BUN/Creatinine Ratio 21 H Glucose 148 H Calculated Osmolality 283 Calcium 9.1 Corrected Calcium 9.2 Total Bilirubin 0.8 AST 18 ALT 12 Alkaline Phosphatase 76 Total Protein 6.3 Albumin 3.9 Globulin 2.4 Albumin/Globulin Ratio 1.6 Quality Measures Quality Measures none Advance care planning discussed with:: patient and spouse Assessment & Plan Assessment Current Active Medications: Generic Name Dose Route Start Last Admin Trade Name Freq PRN Reason Stop Dose Admin Acetaminophen 650 mg 10/13/24 02:31 10/14/24 06:56 Acetaminophen 325 Mg Tablet PO 11/12/24 02:30 650 mg Q6H PRN Administration PAIN SCALE 1-3 (mild Hydrocodone Bitart/Acetaminophen 1 tab 10/13/24 02:31 10/14/24 21:07 Hydrocodone/Apap 10/325 Tab PO 10/18/24 02:30 1 tab Q6H PRN Administration PAIN SCALE 4-6 (Moderate Allopurinol 100 mg 10/13/24 10:15 10/14/24 09:47 Allopurinol 100 Mg Tablet PO 11/12/24 10:14 100 mg QDAY BRITTANI Administration Atropine Sulfate 0.5 mg 10/13/24 06:56 Atropine Sulf Inj 0.1 Mg/Ml Syr 10 Ml IVP 11/12/24 06:55 Q5MIN PRN HR<40 and symptomatic Heparin Sodium (Porcine) 5,000 unit 10/13/24 09:00 10/14/24 21:11 Heparin Sod Inj 5000 Unit/Ml Vial SC 10/27/24 08:59 5,000 unit Q12HR BRITTANI Administration Hydralazine HCl 10 mg 10/13/24 05:14 10/14/24 22:39 Hydralazine Inj 20 Mg/Ml Vial IVP 11/12/24 05:13 10 mg Q6H PRN Administration Systolic >180, HR <75 Hydralazine HCl 50 mg 10/15/24 06:00 10/15/24 05:23 Hydralazine Hcl 25 Mg Tablet PO 11/14/24 05:59 50 mg Q8HR BRITTANI Administration Levothyroxine Sodium 88 mcg 10/13/24 06:00 10/15/24 05:27 Levothyroxine Sodium 88 Mcg Tablet PO 11/12/24 05:59 88 mcg ACBR BRITTANI Administration Morphine Sulfate 1 mg 10/13/24 02:31 10/13/24 04:55 Morphine Sulf Inj 10 Mg/Ml Vial IVP 10/18/24 02:30 1 mg Q6H PRN Administration PAIN SCALE 7-10 (Severe Scopolamine 1 mg 10/13/24 08:57 Scopolamine 1 Mg Tdsy TOP 11/12/24 08:59 Q3D PRN NAUSEA OR VOMITING Protocol Simethicone 80 mg 10/13/24 02:40 Simethicone 80 Mg Chew PO 11/12/24 02:39 QID PRN GAS Plan 78-year-old female with past medical history of congestive heart failure, thyroid cancer status post thyroidectomy on thyroid replacement, squamous cell carcinoma of the neck, Crohn's disease, gout, prediabetes, depression, mild cognitive impairment presenting to the ED on 10/13 due to having a headache will be admitted for symptomatic bradycardia and hypertensive emergency requiring close monitoring and cardiology consultation. #Hypertensive emergency, resolved #Hypertension Patient presented in hypertensive emergency with a systolic 216 diastolic 97, given hydralazine IV 10 mg x2 in ED Had symptoms of headache which could be contributed to the hypertensive emergency Patient is on home hydrochlorothiazide 25 mg and metoprolol succinate 25 BP increased to 200s despite hydralazine 25 mg q8h. Plan: -Hydralazine 50 mg q8h -Hold home BP medication for now -CTM #Symptomatic bradycardia, resolved As noted above, patient presented with symptomatic bradycardia, weakness/dizziness initially, with HR 40s-mid 50s in ED with stable blood pressure. Patient is on metoprolol succinate 25 mg along with amitriptyline which could potentially be causing cardiac arrhythmia//bradycardia, but unsure of which medications patient is taking. Will most likely need to stop amitriptyline on discharge. Ddx: sick sinus syndrome with HR varying from mid 40s-low 100s vs possible medication self-administration error. Recently admitted to [facility], BP meds like lisinopril and verapamil were stopped, but unsure if patient resumed or stopped. Patient does have extensive cardiac history and follows with Dr. Gallo and Tyrone BP and HR have been stable without symptoms. Plan: -Telemetry monitoring -Dr. Wells, cardiology consulted appreciate recommendations-- hold all rate controlling agents, no need for pacemaker now, follow up outpatient after discharge -PT ordered, will likely need home health PT #HFpEF, EF 60-65% [place] Heart Association class II Patient apparently had a workup at [facility] recently for chest discomfort but all findings were negative Initial troponin 0.023 and BNP of 427 Chest x-ray does not show any signs of vascular congestion Echo shows G1DD with estimated EF at 60-65 %, normal LV size, mild LVH, normal RV size and systolic fx, trace MR, mild TR, sclerosis AV, mild . Plan: -Daily weight -Strict I's and O's -Fluid restriction of 1800 mL #Chronic diarrhea #History of Crohn's disease? Patient states that she has been having diarrhea for the past month, 3-4 bowel movements a day Has hx of Crohn's disease for years and was on medication, was told Crohn's was stable, and lost follow up to medication. Has been referred to a shingles roofer helper in [place] but has not followed up Unlikely C.diff, has not had any watery bowel movements on this admission so far, CRP and ESR wnl Having abdominal pain with firm, tender lower abdomen on exam. Has only had one small BM this admission and is unsure of urine output due to confusion. Bladder scan showed 900 mL retained, Barrera ordered Plan: -F/u stool WBC/culture/calprotectin, Giardia, ANCA -Dr. Tompkins, GI consulted appreciate recommendations-- will need colonoscopy for biopsies and reassessment of disease which can be done outpatient -Docusate x1 #Severe electrolyte abnormalities Patient presented with low potassium and low magnesium likely from 1 mo hx of diarrhea Plan: -Replete as needed #Thyroid cancer status post thyroidectomy #Squamous cell carcinoma of the neck #Prediabetes #Depression #Gout Chronic medical conditions nonpertinent to the following presentation Plan: -Restarted patient's levothyroxine 88 mcg and allopurinol 100 mg -Hold amitriptyline for now -Will continue monitoring for any acute changes # Acute urinary retention-bladder scan showed 900 mL urine. Barrera catheter was inserted. Will try bladder training tomorrow. # Altered mental status most likely related to hospital-acquired delirium. CT brain negative. Will monitor closely. Hospital management: Diet: Cardiac Bowel: Senna DVT prophylaxis: heparin q12 Disposition: telemetry, cardiology consulted for bradycardia CODE STATUS: Full Plan of care discussed with attending Dr. Jason, and PGY-2 Dr. Funes. Ange Posada, DO PGY-1 Internal Medicine Attending Provider Attestation/Addendum Patient seen and examined with resident physician Dr. Posada. Note reviewed, agree with findings and recommendations. Admitted with symptomatic bradycardia. Blood pressure seems to be on the better today. Spoke to Dr. Wells-since patient is asymptomatic and heart rate is a stable hold off on pacemaker for now. No further episodes of diarrhea. Will DC C. difficile precautions. Dr. Tompkins was consulted. Dr. Tompkins recommended colonoscopy as an outpatient as she has a GI specialist in [place]. Plan of care discussed with at bedside Patient still seems to be confused will monitor closely. Suspect hospital- acquired delirium Bladder seems to be palpated and distended. Scan showed 900 mL. Barrera catheter was inserted. Will try bladder training prior to discharge tomorrow.
[2024-10-15] MEDS: HEPARIN SOD INJ 5000 UNIT/ML VIAL SC ×2 (09:15→21:07)
--- NOTE | 2024-10-15 10:03 | PC.NURSE ---
Bladder scan showed 900ml. Pt able to void 50mls. Post void 853ml. Dr. Jason notified. Per Dr. Jason, inset montesinos catheter and CDIFF precautions can be taken off. CDIFF negative.
[2024-10-15] MEDS: DOCUSATE SOD 100 MG CAPSULE PO (10:45)
--- NOTE | 2024-10-15 20:39 | PD.IMPROG ---
Documentation for date of: 10/15/24 Subjective Subjective Interval history: Patient evaluated Somewhat confused Had a bowel movement nonbloody Blood pressure control remains an issue Exam Vital Signs Temp Pulse Resp BP Pulse Ox O2 Del Method O2 Flow Rate 97.5 F 57 L 16 141/71 H 99 Nasal Cannula 1 10/15/24 20:00 10/15/24 20:00 10/15/24 20:00 10/15/24 20:00 10/15/24 20:00 10/15/24 20:00 10/15/24 20:00 Objective Labs 10/15/24 05:31 10/15/24 05:31 Labs: Laboratory Results - last 24 hr 10/15/24 05:31 WBC 10.5 RBC 4.57 Hgb 14.5 Hct 42.2 MCV 92 MCH 31.7 MCHC 34.4 RDW Std Deviation 47.1 H Plt Count 227 D Neut % (Auto) 80 Lymph % (Auto) 13 [place] % (Auto) 7 Eos % (Auto) 0 Baso % (Auto) 0 Neut # (Auto) 8.5 H Lymph # (Auto) 1.3 [place] # (Auto) 0.7 Eos # (Auto) 0.0 Baso # (Auto) 0.0 Immature Gran # (Auto) 0.03 H Absolute Nucleated RBC 0.00 Immature Gran % 0 Nucleated RBC % 0 Sodium 140 Potassium 3.3 L Chloride 97 L Carbon Dioxide 31.1 H Anion Gap 12 BUN 17 Creatinine 0.8 Estim Creat Clear Calc 56.8 L eGFR > 60 BUN/Creatinine Ratio 21 H Glucose 148 H Calculated Osmolality 283 Calcium 9.1 Corrected Calcium 9.2 Total Bilirubin 0.8 AST 18 ALT 12 Alkaline Phosphatase 76 Total Protein 6.3 Albumin 3.9 Globulin 2.4 Albumin/Globulin Ratio 1.6 Impressions Impression: Crohn's disease no flareup expected at this time Outpatient colonoscopy Essential hypertension Continue current management Assessment & Plan A&P Narrative pt comfortable HR 47-52 BP stable no further cardiac symptonps ok to d/c home f/u as outpt Time Spent With Patient Time: Total time spent is greater than 50% in coordination of care (as documented) at patient's floor/unit and/or counseling patient:
[2024-10-16] VITALS (12 sets, daily range): BP systolic 125–168; BP diastolic 57–90; PULSE 59–69; RESP 17–21; TEMP 36.1–36.6; O2SAT 91–97; BMI 28.5
[2024-10-16] MEDS: LEVOTHYROXINE SODIUM 88 MCG TABLET PO (06:34)
--- NOTE | 2024-10-16 07:58 | PD.IMPROG ---
Documentation for date of: 10/16/24 Subjective Subjective Interval history: Patient denies any symptoms of dizziness lightheadedness No further episode of syncope Somewhat confused Heart rate 59 sinus rhythm Blood pressure was elevated 168/75 Currently being treated with antihypertensive medications Exam Vital Signs Temp Pulse Resp BP Pulse Ox O2 Del Method O2 Flow Rate 97.0 F 59 L 18 168/75 H 92 L Room Air 1 10/16/24 03:57 10/16/24 06:34 10/16/24 03:57 10/16/24 06:34 10/16/24 03:57 10/16/24 03:57 10/15/24 20:00 Routine HEENT Exam Head: Present normocephalic and atraumatic Eye: Present EOMI and PERRL ENT: Present mucous membranes moist Routine Neck Exam Neck: Present supple and trachea midline Routine Respiratory Exam Respiratory: Present chest non-tender, lungs clear, normal breath sounds and no resp distress Routine Cardiovascular Exam Cardiovascular: Present RRR Routine Abdominal Exam Abdominal: Present soft and normoactive bowel sounds Routine Extremities Exam Extremities: Present full ROM Routine Skin Exam Skin: Present intact, dry and warm Routine Neurological Exam Neurological: Present alert, oriented X3 and CN II-XII intact Routine Psychiatric Exam Psychiatric: Present normal affect and normal thought process Objective Labs 10/15/24 05:31 10/15/24 05:31 Assessment & Plan A&P Narrative Heart rate improved to 59 Continue telemetry monitoring No further episodes of dizziness or syncope Time Spent With Patient Time: Total time spent is greater than 50% in coordination of care (as documented) at patient's floor/unit and/or counseling patient:
[2024-10-16 08:24] LABS: Basophils # (Auto) 0.0 Thou/mm3 (0.0-0.2); Basophils % (Auto) 0 % (0-2.5); Eosinophils # (Auto) 0.0 Thou/mm3 (0.0-0.5); Eosinophils % (Auto) 0 % (0-10); Hematocrit 41.6 % (36.0-46.0); Hemoglobin 14.1 g/dL (12.0-16.0); Immature Granulocytes Auto 0.04 Thou/mm3 (0.00-0.00); Lymphocytes # (Auto) 0.7 Thou/mm3 (1.0-4.8); Lymphocytes % (Auto) 9 % (10-50); Mean Corpuscular HGB Conc 33.9 g/dl (31.0-37.0); Mean Corpuscular Hemoglobin 31.9 pg (25.0-35.0); Mean Corpuscular Volume 94 fL (80-100); Monocytes # (Auto) 0.8 Thou/mm3 (0.0-0.8); Monocytes % (Auto) 10 % (0-12); Neutrophils # (Auto) 6.3 Thou/mm3 (1.8-7.7); Neutrophils % (Auto) 80 % (37-80); Nucleated Red Blood Cell # 0.00 Thou/mm3 (0.00-0.00); Nucleated Red Blood Cell % 0 /100 WBC (0); Platelet Count 185 Thou/mm3 (140-440); RDW Standard Deviation 48.3 fL (36.4-46.3); Red Blood Count 4.42 Miln/mm3 (4.00-5.20); White Blood Count 7.8 Thou/mm3 (3.6-11.0)
[2024-10-16] MEDS: HEPARIN SOD INJ 5000 UNIT/ML VIAL SC ×2 (08:54→21:44)
[2024-10-16 08:59] LABS: Anion Gap 8 (7-16); BUN/Creatinine Ratio 16 Ratio (12-20); Blood Urea Nitrogen 13 mg/dL (9-23); Calcium 8.9 mg/dL (8.3-10.6); Carbon Dioxide 32.6 mMol/L (20.0-31.0); Chloride 96 mMol/L (98-107); Creatinine (Component) 0.8 mg/dL (0.6-1.3); Estimated Creatinine Clearance 56.8 mL/min (>60); Glucose 202 mg/dL (74-106); Osmolality,Calculated 279 (275-295); Potassium 4.2 mMol/L (3.4-5.1); Sodium 137 mMol/L (136-145); eGFR > 60 See Note
--- NOTE | 2024-10-16 11:19 | ESDS_ITS ---
Planned Discharge Date 10/17/24 DS: Providers Provider Date of admission: 10/13/24 02:51 Primary care physician: Katherine Jason MD Admitting Provider: Rehan Barros DO Attending Provider on Admission: Ligia Wells MD Consults: 10/13/24 05:32 Referral Registered Dietitian Routine Comment: Referral Speech Therapy Routine Comment: Per patient i have trouble swallowing [facility] Referral - Knowledge Deficit Routine Comment: Positive screening for knowledge deficit needs. 10/13/24 09:31 Consult to Gastroenterology Routine Comment: Diarrhea, possible hx of Crohns Consulting Provider: Carlton Tompkins 10/13/24 09:41 Consult to Cardiology Routine Comment: Consulting Provider: Dariel Looney 10/14/24 09:06 Referral Physical Therapy Routine Comment: Physician Instructions: Attending Provider on DC: Katherine Jason MD Discharging Provider: Katherine Jason MD DS: Diagnosis Problem List Completed Was Problem List Reviewed/Reconciled?: Yes Hospital Course Hospital Course Hospital course: Summary: 78-year-old female with past medical history of congestive heart failure, thyroid cancer status post thyroidectomy on thyroid replacement, squamous cell carcinoma of the neck, Crohn's disease, gout, prediabetes, depression, mild cognitive impairment presenting to the ED on 10/13 due to having a headache. Patient's is bedside and provided additional history; apparently patient's blood pressure was elevated at home. Of note, patient denies having any chest pain, palpitations but does state that she has ongoing headache, abdominal pain and weakness. Her states that there was some issues with what medication she took this afternoon due to a mishap with the pill container. Patient's also states that for the past week or so she has been more confused (sounds more like a misunderstanding). Patient states that her primary care physician is Dr. Jason and she follows up with cardiology in [place] Dr. Gomez. Apparently she has had a left heart cath which was benign and she did not require any stent placement. Patient does have some degree of heart failure and she has been told she has a murmur in the past. Patient also apparently been told that she has Crohn's disease although she is not on any medications currently; was referred to a apprise counselor in [facility] but has yet to follow-up. Patient has been having diarrhea for the past month and using the bathroom about 3-4 times a day; denies recent antibiotic use. Hospital Course: 10/13/24: Patient was admitted overnight. Seen and examined at bedside. Reports headache, nausea, mild abdominal pain on palpation, and anxiety. Denies chest pain, SOB or fever. BP elevated this morning 182/73. HR is ranging from 30s to 100s. Family at bedside and reports that patient has been managing her own medication, but pills are missing in containers and unknown if patient has taken them or not. On discharge from [facility], per family patient was discontinued on many BP medications like lisinopril and verapamil, but unknown if patient is still taking. Spoke with who reports that she has been diagnosed with Crohn's for years and was on medication and Crohn's was stable , and lost follow up to medication. He does not remember the name of the provider she saw for Crohns. 10/14/24: Patient seen and examined at bedside with in the room. Patient is feeling much better today, reports less nausea and improved headache. Denies chest pain, SOB, or palpitations. Had a soft stool earlier today, denies watery diarrhea. No new complaints. HR high 40s-low 50s overnight. BP low 161-154/60-70 overnight. 10/15/24: Overnight, HR dropped to low 50s and BP systolic in low 200-210s/low 100s, given IV hydralazine 10 x1 and PO hydralazine 25 mg x1. Hydralazine 25 mg TID increased to 50 mg TID. Patient seen and examined at bedside with present. Patient is more confused than yesterday. Complains of new lower abdominal pain, and last BM early yesterday morning. reports she ate a little last night and during breakfast this morning. Denies chest pain, SOB, fever or urinary pain. K 3.3, repleted. 10/16/24: No acute overnight events. BP stable overnight. Patient seen and examined at bedside. Denies any symptoms of dizziness lightheadedness and no further episode of syncope. Much less confused. HR high 50s-60s sinus rhythm. BP stable on anti-hypertensives. Patient is feeling well and ready to go home. 10/17/24: No acute overnight events. BP stable overnight. Patient seen and examined at bedside with . Patient is feeling good today, and less confused per . No new complaints. Yesterday, bladder scan showed ~450 mL still in bladder, Barrera was put in and pt will likely be discharged with Barrera. Had a good bowel movement last night. Patient and family are agreeable to discharge to SNF for physical therapy and to regain strength. Discharge Recommendations: - Continue allipurinol 100 mg daily, levothyroxine 88 mg daily, lovastatin 40 mg daily - START hydralazine 50 mg three times a day and lisinopril 20 mg daily - STOP amitriptyline and metoprolol, and hydrochlorothiazide - Will be discharged to SNF - Please follow up with your PCP within one week of discharge - If your symptoms worsen, please seek immediate medical attention and return to your nearest emergency room. - If you do not have a PCP, you may follow up at the [facility] at [address] [place] [address] [address], [facility] [address], Hospital Diagnoses: #Altered mental status, improved #Acute urinary retention #Hypertensive emergency, resolved #Hypertension #Symptomatic bradycardia, resolved #HFpEF, EF 60-65% #Chronic diarrhea #History of Crohn's disease? #Severe electrolyte abnormalities #Thyroid cancer status post thyroidectomy #Squamous cell carcinoma of the neck #Prediabetes #Depression #Gout Status at Discharge Cognitive/behavioral status at discharge: Stable Overall status at discharge: patient is back to baseline Time Spent with Patient Time attestation: Total time spent providing and/or coordinating discharge services: Time spent: Greater than 30 minutes Exam Vital Signs Temp Pulse Resp BP Pulse Ox O2 Del Method O2 Flow Rate 96.9 F 63 18 127/90 H 95 Room Air 1 10/16/24 08:00 10/16/24 08:54 10/16/24 08:00 10/16/24 08:54 10/16/24 08:00 10/16/24 08:00 10/15/24 20:00 Narrative Exam General: AOx3, no acute distress HEENT: NC/AT, mucous membranes moist, bilateral sclera anicteric Cardiovascular: regular rate and rhythm, S1/S2 present, grade 3 systolic ejection murmur Pulmonary: clear to auscultation bilaterally, no rales/rhonchi/wheezes Abdominal: soft, non-distended, no rebound/guarding, bowel sounds present Extremities: trace BLE pitting edema Skin: warm and dry, intact, no rashes Neuro CN II-XII grossly intact, no focal deficits, alert, following commands Discharge Plan Plan Patient Disposition: Xfer Skilled Nsg Fac (SNF) Disposition Comment: does not want [facility] Patient condition on transfer: Stable Care Plan Goals: Follow up with PCP Dr. Jason within 1 week of discharge. Plan to discharge with Barrera, and to remove at SNF Medications: Start hydralazine 50 mg three times a day and lisinopril 20 mg once a day Continue allopurinol 100 mg daily, levothyroxine 88 mcg daily, and lovastatin 40 mg daily Stop amitriptyline 10 mg, metoprolol 25 mg and hydrochlorothiazide 25 mg daily Prescriptions/Referrals Prescriptions/Med Rec: New lisinopril 20 mg Tablet 20 mg PO QDAY 30 Days Qty: 30 0RF hydralazine 50 mg tablet 50 mg PO TID 30 Days Qty: 90 0RF Continued allopurinol [Zyloprim] 100 MG tablet 100 mg PO QDAY Qty: 0 lovastatin 20 MG tablet 40 mg PO HS Qty: 0 levothyroxine 75 mcg tablet 88 mcg PO QAM Patient Comments: TAKE 1 TABLET BY MOUTH EVERY DAY BEFORE BREAKFAST hydrocodone-acetaminophen 5-325 mg tablet 1 tab PO TID MDD 3 PRN (Reason: pain) Qty: 20 0RF Discontinued amitriptyline 10 mg Tablet 10 mg PO QHSPRN PRN (Reason: Anxiety) Qty: 90 hydrochlorothiazide 25 mg Tablet 25 mg PO QAM Referrals: Katherine Jason MD [Primary Care Provider] - Patient/Caregiver Discharge Instructions Discharge Activity: as per physical therapy and activity as tolerated Education Materials: Controlling High Blood Pressure, Your Heart's Electrical System, DASH Plan Eat Heart Healthy Food, Hypertension Dc, Understanding Bradycardia Print Language: Kyrgyz Activity Restrictions/Additional Instructions: Follow up with PCP Dr. Jason within 1 week of discharge. Patient will be discharged with Holly, plan to remove at SNF Stand Alone Forms: [employer] Award Info., Patient Portal Info Letter Discharge Order Discharge Orders: Discharge (Routine); Ordered 10/17/24 Ordered By: Ange Posada Quality Discharge Quality Measures VTE prophylaxis Attestestation MD Attestation Patient seen and examined with resident physician Dr. Posada. Note reviewed, agree with findings and recommendations. Admitted with symptomatic bradycardia. Blood pressure seems to be on the better today. Spoke to Dr. Wells-since patient is asymptomatic and heart rate is a stable hold off on pacemaker for now. No further episodes of diarrhea. Will DC C. difficile precautions. Dr. Tompkins was consulted. Dr. Tompkins recommended colonoscopy as an outpatient as she has a GI specialist in [place]. Plan of care discussed with at bedside Patient has hospital-acquired delirium especially at the end of the day. She will be discharged to rehab with Barrera catheter. Has good bowel movements.
[2024-10-16] MEDS: LACTULOSE SYRUP 20 GM/30 ML UDC 10 GM PO ×2 (11:41→15:42)
--- NOTE | 2024-10-16 14:27 | PD.RESPRO ---
Documentation for date of: 10/16/24 Subjective Subjective Interval history: 78-year-old female with past medical history of congestive heart failure, thyroid cancer status post thyroidectomy on thyroid replacement, squamous cell carcinoma of the neck, Crohn's disease, gout, prediabetes, depression, mild cognitive impairment presenting to the ED on 10/13 due to having a headache. Patient's is bedside and provided additional history; apparently patient's blood pressure was elevated at home. Of note, patient denies having any chest pain, palpitations but does state that she has ongoing headache, abdominal pain and weakness. Her states that there was some issues with what medication she took this afternoon due to a mishap with the pill container. Patient's also states that for the past week or so she has been more confused (sounds more like a misunderstanding). Patient states that her primary care physician is Dr. Jason and she follows up with cardiology in [place] Dr. Gallo and [place]one. Apparently she has had a left heart cath which was benign and she did not require any stent placement. Patient does have some degree of heart failure and she has been told she has a murmur in the past. Patient also apparently been told that she has Crohn's disease although she is not on any medications currently; was referred to a vision specialist in [place] but has yet to follow-up. Patient has been having diarrhea for the past month and using the bathroom about 3-4 times a day; denies recent antibiotic use. 10/13/24: Patient was admitted overnight. Seen and examined at bedside. Reports headache, nausea, mild abdominal pain on palpation, and anxiety. Denies chest pain, SOB or fever. BP elevated this morning 182/73. HR is ranging from 30s to 100s. Family at bedside and reports that patient has been managing her own medication, but pills are missing in containers and unknown if patient has taken them or not. On discharge from [facility] [place], per family patient was discontinued on many BP medications like lisinopril and verapamil, but unknown if patient is still taking. Spoke with who reports that she has been diagnosed with Crohn's for years and was on medication and Crohn's was stable , and lost follow up to medication. He does not remember the name of the provider she saw for Crohns. 10/14/24: Patient seen and examined at bedside with in the room. Patient is feeling much better today, reports less nausea and improved headache. Denies chest pain, SOB, or palpitations. Had a soft stool earlier today, denies watery diarrhea. No new complaints. HR high 40s-low 50s overnight. BP low 161-154/60-70 overnight. 10/15/24: Overnight, HR dropped to low 50s and BP systolic in low 200-210s/low 100s, given IV hydralazine 10 x1 and PO hydralazine 25 mg x1. Hydralazine 25 mg TID increased to 50 mg TID. Patient seen and examined at bedside with present. Patient is more confused than yesterday. Complains of new lower abdominal pain, and last BM early yesterday morning. reports she ate a little last night and during breakfast this morning. Denies chest pain, SOB, fever or urinary pain. K 3.3, repleted. 10/16/24: No acute overnight events. BP stable overnight. Patient seen and examined at bedside. Denies any symptoms of dizziness lightheadedness and no further episode of syncope. Much less confused. Barrera taken out today, but has not urinated since then. Has not ambulated nor has had any bowel movements yet. HR high 50s-60s sinus rhythm. BP stable on anti-hypertensives. Exam Vital Signs Temp Pulse Resp BP Pulse Ox O2 Del Method O2 Flow Rate 97.7 F 65 19 146/72 H 93 L Room Air 1 10/16/24 12:00 10/16/24 12:00 10/16/24 12:00 10/16/24 12:00 10/16/24 12:00 10/16/24 12:00 10/15/24 20:00 Narrative Exam General: AOx3, no acute distress HEENT: NC/AT, mucous membranes moist, bilateral sclera anicteric Cardiovascular: regular rate and rhythm, S1/S2 present, grade 3 systolic ejection murmur Pulmonary: clear to auscultation bilaterally, no rales/rhonchi/wheezes Abdominal: soft, non-distended, no rebound/guarding, bowel sounds present Extremities: trace BLE pitting edema Skin: warm and dry, intact, no rashes Neuro CN II-XII grossly intact, no focal deficits, alert, following commands Objective Labs 10/16/24 08:08 10/16/24 08:08 Labs: Laboratory Results - last 24 hr 10/16/24 08:08 WBC 7.8 RBC 4.42 Hgb 14.1 Hct 41.6 MCV 94 MCH 31.9 MCHC 33.9 RDW Std Deviation 48.3 H Plt Count 185 D Neut % (Auto) 80 Lymph % (Auto) 9 L [place] % (Auto) 10 Eos % (Auto) 0 Baso % (Auto) 0 Neut # (Auto) 6.3 Lymph # (Auto) 0.7 L [place] # (Auto) 0.8 Eos # (Auto) 0.0 Baso # (Auto) 0.0 Immature Gran # (Auto) 0.04 H Absolute Nucleated RBC 0.00 Immature Gran % 1 H Nucleated RBC % 0 Sodium 137 Potassium 4.2 D Chloride 96 L Carbon Dioxide 32.6 H Anion Gap 8 BUN 13 Creatinine 0.8 Estim Creat Clear Calc 56.8 L eGFR > 60 BUN/Creatinine Ratio 16 Glucose 202 H D Calculated Osmolality 279 Calcium 8.9 Quality Measures Quality Measures VTE prophylaxis Advance care planning discussed with:: patient Assessment & Plan Assessment Current Active Medications: Generic Name Dose Route Start Last Admin Trade Name Freq PRN Reason Stop Dose Admin Acetaminophen 650 mg 10/13/24 02:31 10/14/24 06:56 Acetaminophen 325 Mg Tablet PO 11/12/24 02:30 650 mg Q6H PRN Administration PAIN SCALE 1-3 (mild Hydrocodone Bitart/Acetaminophen 1 tab 10/13/24 02:31 10/14/24 21:07 Hydrocodone/Apap 10/325 Tab PO 10/18/24 02:30 1 tab Q6H PRN Administration PAIN SCALE 4-6 (Moderate Allopurinol 100 mg 10/13/24 10:15 10/16/24 08:54 Allopurinol 100 Mg Tablet PO 11/12/24 10:14 100 mg QDAY BRITTANI Administration Atropine Sulfate 0.5 mg 10/13/24 06:56 Atropine Sulf Inj 0.1 Mg/Ml Syr 10 Ml IVP 11/12/24 06:55 Q5MIN PRN HR<40 and symptomatic Heparin Sodium (Porcine) 5,000 unit 10/13/24 09:00 10/16/24 08:54 Heparin Sod Inj 5000 Unit/Ml Vial SC 10/27/24 08:59 5,000 unit Q12HR BRITTANI Administration Hydralazine HCl 10 mg 10/13/24 05:14 10/14/24 22:39 Hydralazine Inj 20 Mg/Ml Vial IVP 11/12/24 05:13 10 mg Q6H PRN Administration Systolic >180, HR <75 Hydralazine HCl 50 mg 10/15/24 06:00 10/16/24 06:34 Hydralazine Hcl 25 Mg Tablet PO 11/14/24 05:59 50 mg Q8HR BRITTANI Administration Lactulose 10 gm 10/16/24 09:09 10/16/24 11:41 Lactulose Syrup 20 Gm/30 Ml Udc PO 11/15/24 09:14 10 gm BID PRN Administration CONSTIPATION Protocol Levothyroxine Sodium 88 mcg 10/13/24 06:00 10/16/24 06:34 Levothyroxine Sodium 88 Mcg Tablet PO 11/12/24 05:59 88 mcg ACBR BRITTANI Administration Lisinopril 20 mg 10/15/24 15:10 10/16/24 08:54 Lisinopril 20 Mg Tablet PO 11/14/24 15:09 20 mg QDAY BRITTANI Administration Morphine Sulfate 1 mg 10/13/24 02:31 10/13/24 04:55 Morphine Sulf Inj 10 Mg/Ml Vial IVP 10/18/24 02:30 1 mg Q6H PRN Administration PAIN SCALE 7-10 (Severe Scopolamine 1 mg 10/13/24 08:57 Scopolamine 1 Mg Tdsy TOP 11/12/24 08:59 Q3D PRN NAUSEA OR VOMITING Protocol Simethicone 80 mg 10/13/24 02:40 Simethicone 80 Mg Chew PO 11/12/24 02:39 QID PRN GAS Plan 78-year-old female with past medical history of congestive heart failure, thyroid cancer status post thyroidectomy on thyroid replacement, squamous cell carcinoma of the neck, Crohn's disease, gout, prediabetes, depression, mild cognitive impairment presenting to the ED on 10/13 due to having a headache will be admitted for symptomatic bradycardia and hypertensive emergency requiring close monitoring and cardiology consultation. #Altered mental status, improving Most likely related to hospital-acquired delirium. CT brain negative. Plan: -Will monitor closely -Delirium precautions: adequate light during day and lights off at night, frequent reorienting #Acute urinary retention Bladder scan showed 900 mL urine. Barrera catheter was inserted. Plan: -Bladder training ordered -Barrera removed #Hypertensive emergency, resolved #Hypertension Patient presented in hypertensive emergency with a systolic 216 diastolic 97, given hydralazine IV 10 mg x2 in ED Had symptoms of headache which could be contributed to the hypertensive emergency Patient is on home hydrochlorothiazide 25 mg and metoprolol succinate 25 BP increased to 200s despite hydralazine 25 mg q8h. Plan: -Hydralazine 50 mg q8h -Lisinopril 20 mg QD -Hold other home BP medication for now -CTM #Symptomatic bradycardia, resolved As noted above, patient presented with symptomatic bradycardia, weakness/dizziness initially, with HR 40s-mid 50s in ED with stable blood pressure. Patient is on metoprolol succinate 25 mg along with amitriptyline which could potentially be causing cardiac arrhythmia//bradycardia, but unsure of which medications patient is taking. Will most likely need to stop amitriptyline on discharge. Ddx: sick sinus syndrome with HR varying from mid 40s-low 100s vs possible medication self-administration error. Recently admitted to [facility] [place], BP meds like lisinopril and verapamil were stopped, but unsure if patient resumed or stopped. Patient does have extensive cardiac history and follows with Dr. Gallo and [place] BP and HR have been stable without symptoms. Plan: -Telemetry monitoring -Dr. Wells, cardiology consulted appreciate recommendations-- hold all rate controlling agents, no need for pacemaker now, follow up outpatient after discharge -PT ordered, will likely need home health PT #HFpEF, EF 60-65% [place] Heart [employer] class II Patient apparently had a workup at [facility] [place] recently for chest discomfort but all findings were negative Initial troponin 0.023 and BNP of 427 Chest x-ray does not show any signs of vascular congestion Echo shows G1DD with estimated EF at 60-65 %, normal LV size, mild LVH, normal RV size and systolic fx, trace MR, mild TR, sclerosis AV, mild . Plan: -Daily weight -Strict I's and O's -Fluid restriction of 1800 mL #Chronic diarrhea #History of Crohn's disease? Patient states that she has been having diarrhea for the past month, 3-4 bowel movements a day Has hx of Crohn's disease for years and was on medication, was told Crohn's was stable, and lost follow up to medication. Has been referred to a vision specialist in [place] but has not followed up Unlikely C.diff, has not had any watery bowel movements on this admission so far, CRP and ESR wnl Having abdominal pain with firm, tender lower abdomen on exam. Has only had one small BM this admission and is unsure of urine output due to confusion. Bladder scan showed 900 mL retained, Barrera ordered Plan: -F/u stool WBC/culture/calprotectin, Giardia, ANCA -Dr. Tompkins, GI consulted appreciate recommendations-- will need colonoscopy for biopsies and reassessment of disease which can be done outpatient -Stool softeners-currently patient has constipation. #Severe electrolyte abnormalities Patient presented with low potassium and low magnesium likely from 1 mo hx of diarrhea Plan: -Replete as needed #Thyroid cancer status post thyroidectomy #Squamous cell carcinoma of the neck #Prediabetes #Depression #Gout Chronic medical conditions nonpertinent to the following presentation Plan: -Restarted patient's levothyroxine 88 mcg and allopurinol 100 mg -Hold amitriptyline for now -Will continue monitoring for any acute changes Hospital management: Diet: Cardiac Bowel: Senna DVT prophylaxis: heparin q12 Disposition: telemetry, cardiology consulted for bradycardia CODE STATUS: Full Plan of care discussed with attending Dr. Jason. Ange Posada, PGY-1 Internal Medicine Attending Provider Attestation/Addendum Patient seen and examined with resident physician Dr. Posada. Note reviewed, agree with findings and recommendations. Admitted with symptomatic bradycardia. Blood pressure seems to be on the better today. Spoke to Dr. Wells-since patient is asymptomatic and heart rate is a stable hold off on pacemaker for now. No further episodes of diarrhea. Will DC C. difficile precautions. Dr. Tompkins was consulted. Dr. Tompkins recommended colonoscopy as an outpatient as she has a GI specialist in [place]. Plan of care discussed with at bedside Patient still seems to be confused will monitor closely. Suspect hospital-acquired delirium. CT brain negative. This morning she seems to be completely alert and awake. at bedside and is very happy with her progress. After Barrera was discontinued the patient still have retention. Will reinsert Barrera catheter. Still having constipation. Lactulose was given. If clinically stable will plan for discharge to rehab vs [facility] tomorrow.
--- NOTE | 2024-10-16 18:07 | ESPR_ITS ---
Documentation for date of: 10/16/24 Subjective Subjective Interval history: Patient evaluated No bowel movements Barrera catheter out hemoglobin hematocrit stable Exam Vital Signs Temp Pulse Resp BP Pulse Ox O2 Del Method O2 Flow Rate 97.7 F 66 19 146/72 H 93 L Room Air 1 10/16/24 12:00 10/16/24 16:00 10/16/24 12:00 10/16/24 15:43 10/16/24 12:00 10/16/24 12:00 10/15/24 20:00 Objective Labs 10/16/24 08:08 10/16/24 08:08 Labs: Laboratory Results - last 24 hr 10/16/24 08:08 WBC 7.8 RBC 4.42 Hgb 14.1 Hct 41.6 MCV 94 MCH 31.9 MCHC 33.9 RDW Std Deviation 48.3 H Plt Count 185 D Neut % (Auto) 80 Lymph % (Auto) 9 L [place] % (Auto) 10 Eos % (Auto) 0 Baso % (Auto) 0 Neut # (Auto) 6.3 Lymph # (Auto) 0.7 L [place] # (Auto) 0.8 Eos # (Auto) 0.0 Baso # (Auto) 0.0 Immature Gran # (Auto) 0.04 H Absolute Nucleated RBC 0.00 Immature Gran % 1 H Nucleated RBC % 0 Sodium 137 Potassium 4.2 D Chloride 96 L Carbon Dioxide 32.6 H Anion Gap 8 BUN 13 Creatinine 0.8 Estim Creat Clear Calc 56.8 L eGFR > 60 BUN/Creatinine Ratio 16 Glucose 202 H D Calculated Osmolality 279 Calcium 8.9 Impressions Impression: Quiescent inflammatory bowel disease/Crohn's ileitis Continue current management Assessment & Plan A&P Narrative Heart rate improved to 59 Continue telemetry monitoring No further episodes of dizziness or syncope Time Spent With Patient Time: Total time spent is greater than 50% in coordination of care (as documented) at patient's floor/unit and/or counseling patient:
[2024-10-16] MEDS: CAPSAICIN CR 60 GM TUBE TOP (21:40)
[2024-10-17] VITALS (9 sets, daily range): BP systolic 114–146; BP diastolic 58–75; PULSE 54–66; RESP 14–22; TEMP 36.3–36.6; O2SAT 96–97; BMI 28.5; BMI 13.0
[2024-10-17] MEDS: CAPSAICIN CR 60 GM TUBE TOP ×2 (05:39→13:30)
[2024-10-17] MEDS: LEVOTHYROXINE SODIUM 88 MCG TABLET PO (05:55)
[2024-10-17 07:00] LABS: Stool for WBCs Negative (Negative)
[2024-10-17] MEDS: ACETAMINOPHEN 325 MG TABLET 650 MG PO (07:22)
--- NOTE | 2024-10-17 08:46 | PC.SS ---
Addendum entered by Mamie Jo [facility] 10/17/24 15:19: Patient's daughter Homa was also updated. PASRR was sent to [facility] via [employer]. Addendum entered by Mamie Jo [facility] 10/17/24 15:12: Patient's spouse Bill was updated on turkey picker time. Addendum entered by Mamie Jo [facility] 10/17/24 15:10: Amdal ETA 5:45pm Bedside RN Salma and SNF staff Nasrin were upadted. Addendum entered by Mamie Jo [facility] 10/17/24 14:53: Insurance authorization was obtained with [facility]. Transportation is pending on ETA for turkey picker. Patient's spouse Bill was updated. Addendum entered by Mamie Jo [facility] 10/17/24 11:56: SNF referral sent via [employer]. Family would like [facility] as first choice. Addendum entered by Mamie Jo [facility] 10/17/24 11:39: PASRR completed. No further follow up. Addendum entered by Mamie Jo [facility] 10/17/24 11:17: SS follow up: met at bedside with patient and her daughter Homa to discuss the recommendation for SNF. Both parties were agreeable. They requested [facility] as the preferred facility, however [facility] is not accepting patient's at this time. Family to do a tour of [facility] today. Patient and family are aware insurance authorization would need to be obtained for SNF. Brochure to [facility] was provided to family at bed side. Addendum entered by AFSANEH Middleton 10/17/24 10:18: Per PT-Jose he has recommended SNF for the patient and family is agreeable. Original Note: SS update: patient to be seen by PT to give recommendations, HH vs SNF.
[2024-10-17] MEDS: HEPARIN SOD INJ 5000 UNIT/ML VIAL SC (09:56)
--- NOTE | 2024-10-17 10:32 | PC.PT ---
Patient is safe to ambulate to the bathroom and in the halls with a FWW and 1 staff assist. RN made aware.
[2024-10-17 10:59] LABS: Clostridium Difficile PCR Negative (Negative)
[2024-10-20 07:43] LABS: ANCA Screen NEGATIVE (NEGATIVE); Myeloperoxidase Ab <1.0 AI (<1.0); Proteinase-3 Ab <1.0 AI (<1.0)
[2024-10-24 06:26] LABS: Calprotectin, Stool* 36 mcg/g
== END 2024-10-17 18:05 | disposition skilled nursing facility (03) | DRG 305 ==
LOC: SERX 10-13 02:23 → SERHOLD 10-13 02:52 → S2SX 10-13 06:30 → S2NX 10-13 18:34
PROVIDERS: Specialist; Admitting Provider Student in an Organized Health Care Education/Training Program; Emergency Provider Emergency Medicine; PCP Internal Medicine; Visit Provider Internal Medicine
DX: I16.1 Hypertensive emergency (principal); F03.93 Unspecified dementia, unspecified severity, with mood disturbance; K50.90 Crohn's disease, unspecified, without complications; F03.94 Unspecified dementia, unspecified severity, with anxiety; F05 Delirium due to known physiological condition; I50.30 Unspecified diastolic (congestive) heart failure; K57.92 Diverticulitis of intestine, part unspecified, without perforation or abscess without bleeding; R00.1 Bradycardia, unspecified; I11.0 Hypertensive heart disease with heart failure; Z85.89 Personal history of malignant neoplasm of other organs and systems; I45.10 Unspecified right bundle-branch block; Z85.850 Personal history of malignant neoplasm of thyroid; F32.A Depression, unspecified; I49.5 Sick sinus syndrome; C76.0 Malignant neoplasm of head, face and neck; R33.9 Retention of urine, unspecified; M10.9 Gout, unspecified; E11.9 Type 2 diabetes mellitus without complications; E78.00 Pure hypercholesterolemia, unspecified; E89.0 Postprocedural hypothyroidism; K64.9 Unspecified hemorrhoids; K59.00 Constipation, unspecified; Z79.890 Hormone replacement therapy; Z79.899 Other long term (current) drug therapy
CPT/HCPCS: 36415; 70450; 71045; 74018; 80048; 80053; 81001; 83690; 83735; 83880; 83993; 84100; 84439; 84443; 84484; 85025; 85610; 85652; 85730; 86021; 86036; 86140; 87015; 87045; 87046; 87205; 87329; 87493; 87899; 92526; 92610; 93005; 93306; 94762; 96361; 96365; 96366; 96375; 96376; 97161; 97162; J0360; J1644; J1938; J2270; J2405; J3475; J3480; J7030; A9270

== ENCOUNTER → 2024-12-08 | Outpatient (CLI) | payer OTHER, SELFPAY ==
[2024-12-08 10:39] LABS: Basophils # (Auto) 0.0 Thou/mm3 (0.0-0.2); Basophils % (Auto) 1 % (0-2.5); Eosinophils # (Auto) 0.1 Thou/mm3 (0.0-0.5); Eosinophils % (Auto) 2 % (0-10); Hematocrit 38.5 % (36.0-46.0); Hemoglobin 12.7 g/dL (12.0-16.0); Immature Granulocytes Auto 0.04 Thou/mm3 (0.00-0.00); Lymphocytes # (Auto) 1.4 Thou/mm3 (1.0-4.8); Lymphocytes % (Auto) 20 % (10-50); Mean Corpuscular HGB Conc 33.0 g/dl (31.0-37.0); Mean Corpuscular Hemoglobin 31.4 pg (25.0-35.0); Mean Corpuscular Volume 95 fL (80-100); Monocytes # (Auto) 0.6 Thou/mm3 (0.0-0.8); Monocytes % (Auto) 8 % (0-12); Neutrophils # (Auto) 5.0 Thou/mm3 (1.8-7.7); Neutrophils % (Auto) 70 % (37-80); Nucleated Red Blood Cell # 0.00 Thou/mm3 (0.00-0.00); Nucleated Red Blood Cell % 0 /100 WBC (0); Platelet Count 275 Thou/mm3 (140-440); RDW Standard Deviation 47.8 fL (36.4-46.3); Red Blood Count 4.05 Miln/mm3 (4.00-5.20); White Blood Count 7.2 Thou/mm3 (3.6-11.0)
[2024-12-08 10:52] LABS: Anion Gap 9 (7-16); BUN/Creatinine Ratio 21 Ratio (12-20); Blood Urea Nitrogen 17 mg/dL (9-23); Carbon Dioxide 31.0 mMol/L (20.0-31.0); Chloride 107 mMol/L (98-107); Creatinine (Component) 0.8 mg/dL (0.6-1.3); Potassium 3.7 mMol/L (3.4-5.1); Sodium 147 mMol/L (136-145)
[2024-12-08 10:53] LABS: Alanine Aminotransferase 32 U/L (10-49); Albumin, Serum 3.8 gm/dL (3.4-4.8); Albumin/Globulin Ratio 2.0 (1.2-2.2); Alkaline Phosphatase 67 U/L (46-116); Aspartate Amino Transferase 31 U/L (0-34); Bilirubin,Total 0.5 mg/dL (0.3-1.2); Calcium 9.3 mg/dL (8.3-10.6); Calcium (Corrected) 9.5 mg/dL (8.5-10.1); Cardiac Risk Estimate 2.7 RATIO (3.7-5.6); Cholesterol 128 mg/dL (132-200); Globulin 1.9 gm/dL (2.3-3.5); Glucose 116 mg/dL (74-106); HDL Cholesterol 48 mg/dL (40-60); LDL Cholesterol,Calculated 50 mg/dL (0-130); Osmolality,Calculated 294 (275-295); Thyroid Stimulating Hormone 0.97 uIU/mL (0.55-4.78); Total Protein 5.7 gm/dL (5.7-8.2); Triglycerides 152 mg/dL (30-150); eGFR > 60 See Note
[2024-12-08 11:08] LABS: Glucose Estimated Average 126 mg/dL (80-131); Hemoglobin A1C 6.0 % Hgb (4.8-6.0)
[2024-12-08 12:46] LABS: Collection Type, Urine Clean Catch
[2024-12-08 14:13] LABS: Bilirubin,Urine Negative (Negative); Blood,Urine Negative (Negative); Clarity,Urine Clear (Clear/Hazy); Color,Urine Yellow (Lt Yel-Yel); Glucose, Urine Negative (Negative); Hyaline Casts,Urine < 1 /hpf (0-1); Ketones,Urine Negative (Negative); Leukocyte Esterase,Urine Positive (Negative); Nitrite,Urine Negative (Negative); PH,Urine 6.0 (5.0-7.0); Protein,Urine Trace (Neg - Trace); RBC,Urine < 1 /hpf (0-3); Specific Gravity,Urine 1.021 (1.001-1.035); Squamous Epithelial Cell,Urine 1 /hpf (0-5); Urobilinogen,Urine Negative mg/dL (0.0-1.0); WBC,Urine 6 /hpf (0-5)
== END | disposition home or self-care (01) ==
LOC: COPL 09:28
PROVIDERS: PCP Internal Medicine; Referring Provider Internal Medicine; Visit Provider Internal Medicine
DX: E78.5 Hyperlipidemia, unspecified (principal); E03.9 Hypothyroidism, unspecified; I10 Essential (primary) hypertension; R73.03 Prediabetes
CPT/HCPCS: 36415; 80053; 80061; 81001; 83036; 84443; 85025

== ENCOUNTER 2024-12-31 06:24 | Emergency (ER) | payer OTHER, SELFPAY ==
[2024-12-31 06:31] VITALS: BP 222/93; PULSE 53; PULSE 60; RESP 16; RESP 19; TEMP 36.6; O2SAT 97; O2SAT 99; BMI 29.9
--- NOTE | 2024-12-31 06:41 | PC.NURSE ---
Pt placed on Purewick, charted in adult shift assessment
--- NOTE | 2024-12-31 07:12 | EKG_ITS ---
[facility] Test Date: 2024-12-31 Pat Name: AKBAR STEEL Department: Room: - Gender: Female Spa Host: : [id number] Requested By: Josefina Salas Order Number: [id number] Reading MD: Josefina Salas Measurements Intervals [place] Rate: 51 P: 113 CT: 183 QRS: 239 QRSD: 158 T: -6 QT: 509 QTc: 473 Interpretive Statements SINUS BRADYCARDIA INDETERMINATE AXIS RIGHT BUNDLE BRANCH BLOCK [120+ ms QRS DURATION, UPRIGHT V1, 40+ ms S IN I/aVL/V4/V5/V6] Compared to ECG 10/13/2024 11:25:45 Indeterminate axis now present Right-axis deviation no longer present Myocardial infarct finding no longer present /store/S0/[id number]/ecg/[id number].pdf
--- NOTE | 2024-12-31 07:18 | PD.EDWEAK ---
ED Weakness RME/HPI General Chief complaint: Weakness Stated complaint: DIZZINESS Time Seen by Provider: 12/31/24 06:41 Arrival date/time: 12/31/24 06:24 RME / HPI RME / HPI Narrative: 79-year-old female here for evaluation of general weakness, nausea, shakiness and elevated blood pressure first noted this morning. States that she had been in rehab up until about a few weeks ago for hip at which point she was able to be discharged home. Has been doing relatively well at home. Notes that she does have a history of hypertension, is on hydralazine 50 mg 3 times daily and lisinopril 20 mg daily for same. Took all of her medications last night, has not yet taken her medications this morning. Currently feeling somewhat improved compared with symptom onset this morning. No vomiting, fever, diarrhea, or other acute symptoms at this time. Related Data Home Medications ?Medication ?Instructions ?Recorded ?Confirmed allopurinol 100 mg tablet 100 mg PO QDAY #0 tabs 04/23/14 10/13/24 (Zyloprim) lovastatin 20 mg tablet 40 mg PO HS #0 tabs 04/23/14 10/13/24 levothyroxine 75 mcg tablet 88 mcg PO QAM 02/20/22 10/13/24 Previous Rx's ?Medication ?Instructions ?Recorded hydrocodone 5 mg-acetaminophen 325 1 tab PO TID PRN pain #20 tabs 05/19/22 mg tablet hydralazine 50 mg tablet 50 mg PO TID #90 tabs 12/31/24 lisinopril 40 mg tablet 40 mg PO QDAY #30 tabs 12/31/24 Allergies Allergy/AdvReac Type Severity Reaction Status Date / Time No Known Allergies Allergy Verified 05/18/22 16:16 Review of Systems Review of Systems Systems Reviewed: All systems reviewed, normal except as documented Past Medical History Past Medical History Comments PMH COMMENT: Hypertension Course Course Course Narrative: 1025h: Checked on pt, she is feeling very well at this time with resolution of previous symptoms from this AM. BP improved somewhat from initial 220's to 190s current. Would recommend treating blood pressure medication regimen with increase of lisinopril from 20 mg to 40 mg daily and continue the hydralazine 50 mg 3 times daily current. Advised on blood pressure journal at home for the next few days, recording measurements and taking to primary doctor later this week or early next week for recheck. Hypomagnesemia and hypokalemia noted and replaced in ED. Stable for discharge. Return precautions were advised. Quality Measures none Orders Category Date Time Status EKG (ED ONLY) *Do not use* NOW Care 12/31/24 07:13 Completed Insert IV NOW Care 12/31/24 07:[address] head/brain wo con Stat Exams 12/31/24 07:42 Completed EKG (ED Only) Stat Exams 12/31/24 07:12 Draft CBC Stat Lab 12/31/24 08:00 Completed CMP [Comprehensive Metabolic Panel] Stat Lab 12/31/24 08:00 Completed Magnesium Stat Lab 12/31/24 08:00 Completed Labetalol IV [Trandate IV] Med 12/31/24 07:17 Discontinued 10 mg IVP X1 ONE Lisinopril [Prinivil] Med 12/31/24 07:23 Discontinued 30 mg PO X1 ONE Magnesium Sulfate 2 GM Ivpb [Magnesium Sulfate Ivpb] Med 12/31/24 09:16 Active 2 gm in 50 ml IV X1 Potassium Chloride [K-Dur] Med 12/31/24 09:16 Discontinued 20 meq PO X1 ONE hydrALAZINE HCL [Apresoline] Med 12/31/24 07:17 Discontinued 50 mg PO X1 ONE hydrALAZINE INJ [Apresoline Inj] Med 12/31/24 07:20 Discontinued 20 mg IVP X1 ONE Vital Signs Vital signs: Vital Signs Temperature 97.8 F 12/31/24 06:31 Pulse Rate 53 L 12/31/24 06:31 Respiratory Rate 19 12/31/24 06:31 Blood Pressure 222/93 H 12/31/24 06:31 Pulse Oximetry (%) 97 12/31/24 06:31 Oxygen Delivery Method Room Air 12/31/24 06:31 Weakness Patient data External records reviewed:: [facility] previous records Clinical information provided by:: patient and family Social determinants that could affect healthcare access:: none Patient has the following chronic illnesses:: HTN How is presenting disease/condition affected by chronic disease/condition?: exacerbated by Evaluation data The following diagnostics were reviewed and interpreted by me:: lab results, radiology exam(s) and EKG tracing(s) Lab and/or radiology exams considered but not ordered:: none Interpretation Summary: Laboratory Results WBC 5.5 Thou/mm3 (3.6-11.0) 12/31/24 08:00 RBC 4.25 Miln/mm3 (4.00-5.20) 12/31/24 08:00 Hgb 13.2 g/dL (12.0-16.0) 12/31/24 08:00 Hct 40.1 % (36.0-46.0) 12/31/24 08:00 MCV 94 fL (80-100) 12/31/24 08:00 MCH 31.1 pg (25.0-35.0) 12/31/24 08:00 MCHC 32.9 g/dl (31.0-37.0) 12/31/24 08:00 RDW Std Deviation 45.2 fL (36.4-46.3) 12/31/24 08:00 Plt Count 260 Thou/mm3 (140-440) 12/31/24 08:00 Neut % (Auto) 70 % (37-80) 12/31/24 08:00 Lymph % (Auto) 21 % (10-50) 12/31/24 08:00 [place] % (Auto) 8 % (0-12) 12/31/24 08:00 Eos % (Auto) 1 % (0-10) 12/31/24 08:00 Baso % (Auto) 1 % (0-2.5) 12/31/24 08:00 Neut # (Auto) 3.8 Thou/mm3 (1.8-7.7) 12/31/24 08:00 Lymph # (Auto) 1.1 Thou/mm3 (1.0-4.8) 12/31/24 08:00 [place] # (Auto) 0.4 Thou/mm3 (0.0-0.8) 12/31/24 08:00 Eos # (Auto) 0.0 Thou/mm3 (0.0-0.5) 12/31/24 08:00 Baso # (Auto) 0.1 Thou/mm3 (0.0-0.2) 12/31/24 08:00 Immature Gran # (Auto) 0.01 Thou/mm3 (0.00-0.00) H 12/31/24 08:00 Absolute Nucleated RBC 0.00 Thou/mm3 (0.00-0.00) 12/31/24 08:00 Immature Gran % 0 % (0-0) 12/31/24 08:00 Nucleated RBC % 0 /100 WBC (0) 12/31/24 08:00 Sodium 146 mMol/L (136-145) H 12/31/24 08:00 Potassium 3.3 mMol/L (3.4-5.1) L 12/31/24 08:00 Chloride 108 mMol/L (98-107) H 12/31/24 08:00 Carbon Dioxide 28.3 mMol/L (20.0-31.0) 12/31/24 08:00 Anion Gap 10 (7-16) 12/31/24 08:00 BUN 9 mg/dL (9-23) 12/31/24 08:00 Creatinine 0.8 mg/dL (0.6-1.3) 12/31/24 08:00 Estim Creat Clear Calc 59.2 mL/min (>60) L 12/31/24 08:00 eGFR > 60 See Note (60-) 12/31/24 08:00 BUN/Creatinine Ratio 11 Ratio (12-20) L 12/31/24 08:00 Glucose 99 mg/dL (74-106) 12/31/24 08:00 Calculated Osmolality 289 (275-295) 12/31/24 08:00 Calcium 9.7 mg/dL (8.3-10.6) 12/31/24 08:00 Corrected Calcium 9.7 mg/dL (8.5-10.1) 12/31/24 08:00 Magnesium 1.5 mg/dL (1.6-2.6) L 12/31/24 08:00 Total Bilirubin 0.6 mg/dL (0.3-1.2) 12/31/24 08:00 AST 22 U/L (0-34) 12/31/24 08:00 ALT 18 U/L (10-49) 12/31/24 08:00 Alkaline Phosphatase 59 U/L (46-116) 12/31/24 08:00 Total Protein 6.4 gm/dL (5.7-8.2) 12/31/24 08:00 Albumin 4.1 gm/dL (3.4-4.8) 12/31/24 08:00 Globulin 2.3 gm/dL (2.3-3.5) 12/31/24 08:00 Albumin/Globulin Ratio 1.8 (1.2-2.2) 12/31/24 08:00 CT brain head without contrast. 2-D sagittal coronal reconstructions Date and time of exam:December 31, 2024, 0726 hrs. Indications: Patient hit head on the edge of it drawer one week ago, head contusion, hypertension head pain CTDI: vol (mGy):45.9 DLP: (mGycm):943 Technique: Multiple CT axial sections of the brain have been obtained, 5 mm slice thickness. Contrast has not been administered. 2-D sagittal, coronal reconstructions have been obtained Low dose protocols were performed. One or more of the following dose reduction techniques were used; automated exposure control, adjustment of the mA and/or KV according to patient size, use of iterative reconstruction technique. Findings: No significant ventricular enlargement. Intra-axial or extra-axial hemorrhage density is not seen. No mass effect or midline shift Basal cisterns are not remarkable. Fourth ventricle is midline. Cranial vault intact. Impression: Negative for acute hemorrhage, mass effect or midline shift Medications / Prescriptions Medications or Prescriptions considered but not ordered:: none Medication administrations:: Medication Administration History Magnesium Sulfate (Magnesium Sulfate Ivpb) 2 gm in 50 mls @ 25 mls/hr IV X1 ONE Stop: 12/31/24 11:15 Last Admin: 12/31/24 09:45 Dose: 25 mls/hr Documented By: ED Discontinued Medications Hydralazine HCl (Hydralazine Hcl 25 Mg Tablet) 50 mg PO X1 ONE Stop: 12/31/24 07:18 Last Admin: 12/31/24 09:53 Dose: Not Given Documented By: ED Non-Admin Reason: Cancelled by Provider Hydralazine HCl (Hydralazine Inj 20 Mg/Ml Vial) 20 mg IVP X1 ONE Stop: 12/31/24 07:21 Last Admin: 12/31/24 09:43 Dose: 20 mg Documented By: ED Labetalol HCl (Labetalol Inj 5 Mg/Ml Vial 20 Ml) 10 mg IVP X1 ONE Stop: 12/31/24 07:18 Last Admin: 12/31/24 09:53 Dose: Not Given Documented By: ED Non-Admin Reason: Cancelled by Provider Lisinopril (Lisinopril 20 Mg Tablet) 30 mg PO X1 ONE Stop: 12/31/24 07:24 Last Admin: 12/31/24 09:23 Dose: 30 mg Documented By: ED Potassium Chloride (Potassium Chloride 20 Meq Tabcr) 20 meq PO X1 ONE Stop: 12/31/24 09:17 Last Admin: 12/31/24 09:26 Dose: 20 meq Documented By: ED as above Consultations Consultation(s) initiated? (list below): No Diagnosis Weakness Differential Diagnosis: anemia, hypoglycemia, dehydration and other Most likely diagnosis given after review of the tests above:: Hypertensive urgency, hypomagnesemia, hypokalemia Admission Indicated Admission indicated?: not indicated Admission Request Was there a request for admission?: No Disposition Plan Disposition Plan: Discharge Discharge Attestation Discharge Attestation: The patient and all family members were given an opportunity to ask questions and understood the discharge instructions. Discharge instructions specifically effects, indications for sooner follow up or return to the emergency department, and the expected course of current diagnosis. Patient condition: Stable Discharge Plan Plan Patient Disposition: HOME (Self Care) Patient condition on transfer: Stable Prescriptions/Referrals Prescriptions/Med Rec: New lisinopril 40 mg tablet 40 mg PO QDAY Qty: 30 0RF hydralazine 50 mg tablet 50 mg PO TID Qty: 90 0RF No Action allopurinol [Zyloprim] 100 MG tablet 100 mg PO QDAY Qty: 0 lovastatin 20 MG tablet 40 mg PO HS Qty: 0 levothyroxine 75 mcg tablet 88 mcg PO QAM Patient Comments: TAKE 1 TABLET BY MOUTH EVERY DAY BEFORE BREAKFAST hydrocodone-acetaminophen 5-325 mg tablet 1 tab PO TID MDD 3 PRN (Reason: pain) Qty: 20 0RF Referrals: No Primary/Family,Physician [Primary Care Provider] - In 1 week Problem List Clinical Impression: Hypertensive urgency, Hypomagnesemia, Hypokalemia Patient/Caregiver Discharge Instructions Education Materials: Discharge Instructions for ..., ED Hypokalemia Additional Instructions: Take your blood pressure twice daily for the next week and record in a journal. Take these readings with you to your next doctor's appointment for further outpatient management of your blood pressure. Some general health principles that can help you are the [employer] principles: Nutrition (eat a plant-based diet, avoiding meats in general, avoiding highly processed foods) Exercise (Daily exercise/walks as tolerated) Water (Drink adequate fresh water to maintain hydration, concentrating on water rather than on soda, coffee, tea, juice, etc for hydration) [place] (Spend time - 15-20 minutes or so with skin exposed in the java developer architect and late evening sun for Vitamin D health benefits) [place] (Avoid alcohol, illicit drugs, caffeinated beverages, smoking, etc) Air (Deep breathing exercises in the early mornings in fresh air) Rest (Adequate rest at night, going to bed a few hours before midnight and avoiding all screens/television/loud music in the time right before going to bed, also avoiding heavy meals just prior to going to bed) Trust in God (Spend time daily in Bible study and prayer - health benefits in contemplation of God's true character) Additional resources that can benefit: www.[employer]Me.Localize Direct, look under resources and seminars. Print Language: Urdu Stand Alone Forms: [employer] Award Info., Patient Portal Info Letter
[2024-12-31 07:25] VITALS: BP 185/93; PULSE 60; RESP 17; TEMP 36.9; O2SAT 99
--- NOTE | 2024-12-31 07:25 | PC.NURSE ---
Pt. here from home to room 5, pt. spouse is bedside. Pt. states she came in for weakness and dizziness, pt. states both the weakness and dizziness are gone at this time. Pt.' spouse states that pt. came to him and stated she didn't feel well. Pt. spouse states that pt. has had a previous heart attack so he states he took pt.'s blood pressure and brought her here. Pt.'s spouse states that her blood pressure was high. Pt. states she has a lidocaine patch to her right hip, pt. states right hip is sore. Pt. states she was previously in [facility] to gain her strength back. Pt. has a yellowish bruise to her left upper eyebrow and pt. states she was dusting at home and hit her head, pt. denies loss of LOC. Pt. laughing at this time, 2 warm blankets given, pt. has a pure wick.
--- NOTE | 2024-12-31 07:42 | XR_ITS ---
Examination: CT brain head without contrast. 2-D sagittal coronal reconstructions Date and time of exam:December 31, 2024, 0726 hrs. Indications: Patient hit head on the edge of it drawer one week ago, head contusion, hypertension head pain CTDI: vol (mGy):45.9 DLP: (mGycm):943 Technique: Multiple CT axial sections of the brain have been obtained, 5 mm slice thickness. Contrast has not been administered. 2-D sagittal, coronal reconstructions have been obtained Low dose protocols were performed. One or more of the following dose reduction techniques were used; automated exposure control, adjustment of the mA and/or KV according to patient size, use of iterative reconstruction technique. Findings: No significant ventricular enlargement. Intra-axial or extra-axial hemorrhage density is not seen. No mass effect or midline shift Basal cisterns are not remarkable. Fourth ventricle is midline. Cranial vault intact. Impression: Negative for acute hemorrhage, mass effect or midline shift
[2024-12-31 08:39] LABS: Basophils # (Auto) 0.1 Thou/mm3 (0.0-0.2); Basophils % (Auto) 1 % (0-2.5); Eosinophils # (Auto) 0.0 Thou/mm3 (0.0-0.5); Eosinophils % (Auto) 1 % (0-10); Hematocrit 40.1 % (36.0-46.0); Hemoglobin 13.2 g/dL (12.0-16.0); Immature Granulocytes Auto 0.01 Thou/mm3 (0.00-0.00); Lymphocytes # (Auto) 1.1 Thou/mm3 (1.0-4.8); Lymphocytes % (Auto) 21 % (10-50); Mean Corpuscular HGB Conc 32.9 g/dl (31.0-37.0); Mean Corpuscular Hemoglobin 31.1 pg (25.0-35.0); Mean Corpuscular Volume 94 fL (80-100); Monocytes # (Auto) 0.4 Thou/mm3 (0.0-0.8); Monocytes % (Auto) 8 % (0-12); Neutrophils # (Auto) 3.8 Thou/mm3 (1.8-7.7); Neutrophils % (Auto) 70 % (37-80); Nucleated Red Blood Cell # 0.00 Thou/mm3 (0.00-0.00); Nucleated Red Blood Cell % 0 /100 WBC (0); Platelet Count 260 Thou/mm3 (140-440); RDW Standard Deviation 45.2 fL (36.4-46.3); Red Blood Count 4.25 Miln/mm3 (4.00-5.20); White Blood Count 5.5 Thou/mm3 (3.6-11.0)
[2024-12-31 08:56] LABS: Alanine Aminotransferase 18 U/L (10-49); Albumin, Serum 4.1 gm/dL (3.4-4.8); Albumin/Globulin Ratio 1.8 (1.2-2.2); Alkaline Phosphatase 59 U/L (46-116); Anion Gap 10 (7-16); Aspartate Amino Transferase 22 U/L (0-34); BUN/Creatinine Ratio 11 Ratio (12-20); Bilirubin,Total 0.6 mg/dL (0.3-1.2); Blood Urea Nitrogen 9 mg/dL (9-23); Calcium 9.7 mg/dL (8.3-10.6); Calcium (Corrected) 9.7 mg/dL (8.5-10.1); Carbon Dioxide 28.3 mMol/L (20.0-31.0); Chloride 108 mMol/L (98-107); Creatinine (Component) 0.8 mg/dL (0.6-1.3); Estimated Creatinine Clearance 59.2 mL/min (>60); Globulin 2.3 gm/dL (2.3-3.5); Glucose 99 mg/dL (74-106); Magnesium 1.5 mg/dL (1.6-2.6); Osmolality,Calculated 289 (275-295); Potassium 3.3 mMol/L (3.4-5.1); Sodium 146 mMol/L (136-145); Total Protein 6.4 gm/dL (5.7-8.2); eGFR > 60 See Note
[2024-12-31 09:23] VITALS: BP 208/91; PULSE 54
[2024-12-31 09:43] VITALS: BP 208/91; PULSE 58
[2024-12-31] MEDS: hydrALAZINE INJ 20 MG/ML VIAL IVP (09:43)
[2024-12-31] MEDS: Magnesium Sulfate 2 GM Ivpb 2 GM/50 ML BAG IV (09:45)
--- NOTE | 2024-12-31 10:16 | PC.NURSE ---
Pt. cleaned, complete linen change done, new pure wic, pt. tolerated well. Warm blankets given, pt. states she's in [place].
[2024-12-31 11:53] VITALS: BP 199/81; PULSE 64; RESP 18; TEMP 36.6; O2SAT 98
[2024-12-31 12:20] VITALS: BP 185/84; PULSE 61; RESP 18; TEMP 36.6; O2SAT 99
== END 2024-12-31 12:20 | disposition home or self-care (01) ==
PROVIDERS: Emergency Provider Family Medicine
DX: I16.0 Hypertensive urgency (principal); E83.42 Hypomagnesemia; E87.6 Hypokalemia; I10 Essential (primary) hypertension; Z79.899 Other long term (current) drug therapy
CPT/HCPCS: 36415; 70450; 80053; 83735; 85025; 93005; 96365; 96366; 96375; 99284; J0360; J3475; A9270

== ENCOUNTER 2025-01-19 09:46 | Outpatient (RCR) | payer OTHER, SELFPAY | END 2025-01-30 23:59 | disposition home or self-care (01) | LOC: SCTC 09:46 | PROVIDERS: PCP Internal Medicine; Referring Provider Internal Medicine; Visit Provider Nurse Practitioner Family | DX: Z08 Encounter for follow-up examination after completed treatment for malignant neoplasm (principal); Z85.79 Personal history of other malignant neoplasms of lymphoid, hematopoietic and related tissues; E89.0 Postprocedural hypothyroidism; Z79.890 Hormone replacement therapy; R53.1 Weakness; Z92.3 Personal history of irradiation | CPT/HCPCS: 99212; G0463 ==

== ENCOUNTER 2025-03-06 15:54 | Observation (INO) | payer OTHER, SELFPAY ==
[2025-03-06 15:55] VITALS: BMI 25.2
[2025-03-06 16:05] VITALS: BP 176/90; PULSE 55; RESP 19; TEMP 36.4; O2SAT 98
--- NOTE | 2025-03-06 16:16 | XR_ITS ---
Examination: CT abdomen and pelvis without contrast. Coronal 3-D reconstructions. Sagittal 2-D reconstructions. Date and time of exam: March 06, 2025, 1658 hours INDICATIONS: Bloody stools lower abdominal pain today COMPARISON: July 02, 2023 CTDI: vol (mGy): 7.01 DLP: (mGycm): 359 Technique: Axial images of the abdomen have been obtained, 3 mm slice thickness Intravenous contrast material has not been administered. Low dose protocols were performed. One or more of the following dose reduction techniques were used; automated exposure control, adjustment of the mA and/or KV according to patient size, use of iterative reconstruction technique. Findings: No focal liver or splenic lesions No gallstones No pancreatic or adrenal mass Moderate renal scar formation, no hydronephrosis renal or ureteral calculi Aortic calcification no aneurysmal dilatation No bowel obstruction Colonic diverticulosis, no diverticulitis Normal appendix Mild diffuse nonspecific colitis pattern Atrophic anteverted uterus Severe osteopenia, moderate disc narrowing L5-S1 IMPRESSION: Moderate renal scar formation, no hydronephrosis renal or ureteral calculi Normal appendix Mild diffuse nonspecific colitis pattern, differential would include ulcerative colitis, Crohn's disease
--- NOTE | 2025-03-06 16:16 | PD.EDRME ---
Rapid Medical Screening Exam RME Arrival date/time: 03/06/25 15:54 79-year-old female with a history of hypothyroidism, hypertension, hyperlipidemia presents to the emergency room with a chief complaint of black and tarry stool x 1 day I have greeted and performed a focused initial assessment of this patient. A comprehensive ED assessment and evaluation of the patient, analysis of all test results, and completion of the medical decision making process will be conducted by additional ED providers. Chief Complaint: General Adult/Misc Complain Time Seen by Provider: 03/06/25 18:37 Vital signs: Vital Signs Temperature 97.6 F 03/06/25 16:05 Pulse Rate 55 L 03/06/25 16:05 Respiratory Rate 19 03/06/25 16:05 Blood Pressure 176/90 H 03/06/25 16:05 Pulse Oximetry (%) 98 03/06/25 16:05 Oxygen Delivery Method Room Air 03/06/25 16:05 Vital signs reviewed by provider: Yes Exam: Lower abdominal cramping Strong and regular rhythm S1 and S2 Clinical Impression: GI bleed/upper GI bleed
[2025-03-06 16:49] LABS: Basophils # (Auto) 0.1 Thou/mm3 (0.0-0.2); Basophils % (Auto) 1 % (0-2.5); Eosinophils # (Auto) 0.1 Thou/mm3 (0.0-0.5); Eosinophils % (Auto) 1 % (0-10); Hematocrit 39.2 % (36.0-46.0); Hemoglobin 13.1 g/dL (12.0-16.0); Immature Granulocytes Auto 0.03 Thou/mm3 (0.00-0.00); Lymphocytes # (Auto) 1.8 Thou/mm3 (1.0-4.8); Lymphocytes % (Auto) 21 % (10-50); Mean Corpuscular HGB Conc 33.4 g/dl (31.0-37.0); Mean Corpuscular Hemoglobin 31.4 pg (25.0-35.0); Mean Corpuscular Volume 94 fL (80-100); Monocytes # (Auto) 0.7 Thou/mm3 (0.0-0.8); Monocytes % (Auto) 9 % (0-12); Neutrophils # (Auto) 5.6 Thou/mm3 (1.8-7.7); Neutrophils % (Auto) 68 % (37-80); Nucleated Red Blood Cell # 0.00 Thou/mm3 (0.00-0.00); Nucleated Red Blood Cell % 0 /100 WBC (0); Platelet Count 260 Thou/mm3 (140-440); RDW Standard Deviation 45.2 fL (36.4-46.3); Red Blood Count 4.17 Miln/mm3 (4.00-5.20); White Blood Count 8.3 Thou/mm3 (3.6-11.0)
[2025-03-06 16:59] LABS: INR 1.1 (0.9-1.3); Partial Thromboplastin Time 25.9 Seconds (22.0-36.0); Prothrombin Time 11.9 Seconds (9.0-12.2)
[2025-03-06 17:05] LABS: Alanine Aminotransferase 10 U/L (10-49); Albumin, Serum 4.0 gm/dL (3.4-4.8); Albumin/Globulin Ratio 1.7 (1.2-2.2); Alkaline Phosphatase 71 U/L (46-116); Anion Gap 13 (7-16); Aspartate Amino Transferase 21 U/L (0-34); BUN/Creatinine Ratio 18 Ratio (12-20); Bilirubin,Total 0.3 mg/dL (0.3-1.2); Blood Urea Nitrogen 18 mg/dL (9-23); Calcium 8.7 mg/dL (8.3-10.6); Calcium (Corrected) 8.7 mg/dL (8.5-10.1); Carbon Dioxide 28.3 mMol/L (20.0-31.0); Chloride 105 mMol/L (98-107); Creatinine (Component) 1.0 mg/dL (0.6-1.3); Estimated Creatinine Clearance 42.1 mL/min (>60); Globulin 2.3 gm/dL (2.3-3.5); Glucose 162 mg/dL (74-106); Lipase 42 U/L (12-53); Osmolality,Calculated 296 (275-295); Potassium 3.0 mMol/L (3.4-5.1); Sodium 146 mMol/L (136-145); Total Protein 6.3 gm/dL (5.7-8.2); eGFR 57 See Note
[2025-03-06 18:14] VITALS: BP 200/103; BP 218/92; PULSE 56; RESP 16; TEMP 36.6; O2SAT 100
[2025-03-06 18:41] VITALS: BP 200/103; PULSE 64
[2025-03-06] MEDS: hydrALAZINE INJ 20 MG/ML VIAL 10 MG IVP (18:41)
--- NOTE | 2025-03-06 19:02 | PC.NURSE ---
Patient care assumed at this time, report received from Nolberto MÉNDEZ. Patient is awake, lying in bed. This Nurse will review patient's chart and complete any pending orders.
--- NOTE | 2025-03-06 19:19 | PD.EDADULT ---
ED General RME/HPI General Chief complaint: General Adult/Misc Complain Stated complaint: BLACK STOOLS Time Seen by Provider: 03/06/25 18:37 Arrival date/time: 03/06/25 15:54 RME / HPI RME / HPI narrative: 03/06/25 15:54 79-year-old female with a history of hypothyroidism, hypertension, hyperlipidemia presents to the emergency room with a chief complaint of black and tarry stool x 1 day I have greeted and performed a focused initial assessment of this patient. A comprehensive ED assessment and evaluation of the patient, analysis of all test results, and completion of the medical decision making process will be conducted by additional ED providers. Exam: Lower abdominal cramping Strong and regular rhythm S1 and S2 Impression: GI bleed/upper GI bleed Related Data Home Medications ?Medication ?Instructions ?Recorded ?Confirmed allopurinol 100 mg tablet 100 mg PO QDAY #0 tabs 04/23/14 10/13/24 (Zyloprim) lovastatin 20 mg tablet 40 mg PO HS #0 tabs 04/23/14 10/13/24 levothyroxine 75 mcg tablet 88 mcg PO QAM 02/20/22 10/13/24 Previous Rx's ?Medication ?Instructions ?Recorded hydrocodone 5 mg-acetaminophen 325 1 tab PO TID PRN pain #20 tabs 05/19/ mg tablet hydralazine 50 mg tablet 50 mg PO TID #90 tabs 12/31/24 lisinopril 40 mg tablet 40 mg PO QDAY #30 tabs 12/31/24 Allergies Allergy/AdvReac Type Severity Reaction Status Date / Time No Known Allergies Allergy Verified 03/06/25 15:58 ED Exam Narrative Physical exam: Physical Exam: GENERAL: Awake, answering questions appropriately, appears stated age, in moderate distress HEENT: NC/AT. Moist mucosa. PERRLA/EOMI. CARDIO: Heart RRR, no obvious murmurs, no JVD. PULM: No coughing or visible SOB. Lungs CTA B/L. GI: Abdomen soft but tender to palpation diffusely, guarding noted without any rigidity or rebound tenderness. SKIN/MSK/EXT: No wounds/discoloration/rashes/edema/amputations. +Pedal pulses present B/L. NEURO: Oriented x3, Moves extremities x4, no focal neurologic deficits noted Course Quality Measures VTE prophylaxis Orders Category Date Time Status COVID-19 Screening Questionnaire NOW Care 03/06/25 21:36 Active Decision to Admit X1 Care 03/06/25 21:35 Active Insert Rectal Tube QSHIFT Care 03/06/25 18:07 Active Consult to Gastroenterology Stat Cons 03/06/25 21:[address] abdomen pelvis wo con Stat Exams 03/06/25 16:16 Completed C-Reactive Protein Stat Lab 03/06/25 16:35 Completed CBC Stat Lab 03/06/25 16:35 Completed CMP [Comprehensive Metabolic Panel] Stat Lab 03/06/25 16:35 Completed Calprotectin, Stool* Stat Lab 03/06/25 19:22 Ordered Lipase Stat Lab 03/06/25 16:35 Completed PT [Prothrombin Time with INR] Stat Lab 03/06/25 16:35 Completed PTT [Partial Thromboplastin Time] Stat Lab 03/06/25 16:35 Completed Sed Rate (ESR) Stat Lab 03/06/25 16:35 Completed Type and Screen Stat Lab 03/06/25 16:35 Completed UA, C/S IF [Urinalysis, C/S if Indicated] Stat Lab 03/06/25 20:00 Completed Urine Culture Stat Lab 03/06/25 20:00 Received HYDROcodone*/APAP 5/325 [[place] 5/325] Med 03/06/25 16:44 Discontinued 1 tab PO X1 ONE Mesalamine [Pentasa] Med 03/06/25 22:00 Active 1,000 mg PO TID Mesalamine [Pentasa] Med 03/06/25 20:15 Discontinued 1,000 mg PO X1 ONE Mesalamine [Pentasa] Med 03/06/25 20:31 Discontinued 1,000 mg PO X1 ONE Mesalamine [Pentasa] Med 03/06/25 20:31 Discontinued 250 mg PO X1 ONE MethylPREDNISolone. [SoluMEDROL Inj] Med 03/07/25 09:00 Active 40 mg IVP BID MethylPREDNISolone. [SoluMEDROL Inj] Med 03/06/25 19:14 Discontinued 60 mg IVP X1 ONE Potassium Chloride [K-Dur] Med 03/06/25 19:15 Discontinued 40 meq PO X1 ONE cefTRIAXone/D5w 1gm IV premix [Rocephin/D5w 1gm IV Med 03/06/25 21:40 Active premix] 1 gm in 50 ml IV X1 hydrALAZINE INJ [Apresoline Inj] Med 03/06/25 18:37 Discontinued 10 mg IVP X1 ONE metroNIDAZOLE/NS 500 MG IVPB [Flagyl 500 mg IV] Med 03/06/25 21:40 Active 500 mg in 100 ml IV X1 Vital Signs Vital signs: Vital Signs Temperature 97.6 F 03/06/25 16:05 Pulse Rate 55 L 03/06/25 16:05 Respiratory Rate 19 03/06/25 16:05 Blood Pressure 176/90 H 03/06/25 16:05 Pulse Oximetry (%) 98 03/06/25 16:05 Oxygen Delivery Method Room Air 03/06/25 16:05 Discharge Plan Plan Patient Disposition: Admit Acute Care w/in Hospital Patient condition on transfer: Stable Prescriptions/Referrals Prescriptions/Med Rec: No Action allopurinol [Zyloprim] 100 MG tablet 100 mg PO QDAY Qty: 0 lovastatin 20 MG tablet 40 mg PO HS Qty: 0 levothyroxine 75 mcg tablet 88 mcg PO QAM Patient Comments: TAKE 1 TABLET BY MOUTH EVERY DAY BEFORE BREAKFAST hydrocodone-acetaminophen 5-325 mg tablet 1 tab PO TID MDD 3 PRN (Reason: pain) Qty: 20 0RF lisinopril 40 mg tablet 40 mg PO QDAY Qty: 30 0RF hydralazine 50 mg tablet 50 mg PO TID Qty: 90 0RF Referrals: Katherine Jason MD [Primary Care Provider, Nephrology] - In 1 week Problem List Clinical Impression: Severe chronic ulcerative colitis with rectal bleeding Patient/Caregiver Discharge Instructions Print Language: Faroese Stand Alone Forms: [employer] Award Info., Patient Portal Info Letter MDM Narrative MDM hospital course (for use when minimal MDM required): HPI: 79-year-old female with past medical history of HFpEF (EF 60 to 65%), thyroid cancer status post thyroidectomy on thyroid replacement, squamous cell carcinoma of the neck, Crohn's disease, gout, prediabetes, depression, mild cognitive impairment presenting to the ED on 03/06 with severe abdominal pain along with 1 episode of black tarry stool. Patient states that abdominal pain progressively worsened yesterday. She was admitted earlier this year hypertensive urgency and symptomatic bradycardia and was discharged after cardiology and gastroenterology referral. At that time, patient was told to follow-up with gastroenterology; however, she has not been able to and does not take any medications for her Crohn's disease. She states that she has not had any fever/chills, chest pain, shortness of breath but her abdominal pain is extremely severe and [id number] medications have not been helpful at this time. On examination, please refer to the physical exam note as above; patient presented in hypertensive emergency/urgency with a peak blood pressure of 218/92 which has since improved moderately but is still elevated due to pain, heart rate of 81, respiratory of 20, afebrile satting 100 on room air. CBC is largely unremarkable without any leukocytosis or anemia noted, CMP does show some mild hyponatremia and hypokalemia, liver enzymes are within normal limits. Urinalysis shows turbid urine with hematuria, pyuria and +1 bacteria with leukocyte esterase being positive. ESR is not elevated at 11, CRP is also not elevated at less than 0.5. CT abdomen pelvis shows moderate renal scar formation without any hydronephrosis or calculi, normal appendix and mild diffuse nonspecific colitis. Differentials include: Crohn's disease flare, possible ulcerative colitis, nonspecific colitis, infectious colitis less likely as patient does not have any fever/WBC elevation, diverticulitis not as likely for similar reason #Crohn's disease flare Patient has apparently history of Crohn's disease Had colonoscopy completed with general surgery several months ago without any results known at this time On past admission, calprotectin was negative, stool WBC along with ANCA tests were negative so unsure if exactly patient has Crohn's disease at this time Patient does not have any etiology of infectious colitis CT scan shows mild diffuse colitis which is more likely to be ulcerative colitis versus Crohn's disease Lm a GI specialist who has recommended that if the patient's pain is continuing to be severe after IV methylprednisolone and mesalamine to admit for further workup and colonoscopy Plan: Continue IV methylprednisolone, mesalamine X 1 dose of 1 g IV Rocephin and 500 mg IV Flagyl to cover for any infectious cause of colitis Hospitalist team made aware and will assess the patient for admission. Patient seen and assessed with attending Dr. Jose Purdy, DO PGY-2 Internal Medicine - GME Medication Administration(s) Medication Administration History Ceftriaxone Sodium/Dextrose (Rocephin/D5w 1gm Iv Premix) 1 gm in 50 mls @ 100 mls/hr IV X1 ONE Stop: 03/06/25 22:09 Metronidazole (Flagyl 500 Mg Iv) 500 mg in 100 mls @ 100 mls/hr IV X1 ONE Stop: 03/06/25 22:39 Mesalamine (Mesalamine 250 Mg Capsule.Er) 1,000 mg PO TID BRITTANI Stop: 04/05/25 21:59 Methylprednisolone Sodium Succinate (Methylprednisolone Sod Succ 40 Mg/Ml Vial) 40 mg IVP BID BRITTANI Stop: 03/14/25 08:59 Discontinued Medications Hydrocodone Bitart/Acetaminophen (Hydrocodone/Apap 5/325 Tablet) 1 tab PO X1 ONE Stop: 03/06/25 16:45 Last Admin: 03/06/25 17:04 Dose: Not Given Documented By: GM Non-Admin Reason: Patient Refused Hydralazine HCl (Hydralazine Inj 20 Mg/Ml Vial) 10 mg IVP X1 ONE Stop: 03/06/25 18:38 Last Admin: 03/06/25 18:41 Dose: 10 mg Documented By: EF Mesalamine (Mesalamine 250 Mg Capsule.Er) 1,000 mg PO X1 ONE Stop: 03/06/25 20:16 Last Admin: 03/06/25 20:33 Dose: Not Given Documented By: SR Non-Admin Reason: Cancelled by Provider Mesalamine (Mesalamine 250 Mg Capsule.Er) 250 mg PO X1 ONE Stop: 03/06/25 20:32 Last Admin: 03/06/25 21:06 Dose: 250 mg Documented By: Admin: 03/06/25 20:59 Dose: 250 mg Documented By: SR Mesalamine (Mesalamine 250 Mg Capsule.Er) 1,000 mg PO X1 ONE Stop: 03/06/25 20:32 Last Admin: 03/06/25 21:19 Dose: 1,000 mg Documented By: SR Methylprednisolone Sodium Succinate (Methylprednisolone Sod Succ 40 Mg/Ml Vial) 60 mg IVP X1 ONE Stop: 03/06/25 19:15 Last Admin: 03/06/25 19:52 Dose: 60 mg Documented By: SR Potassium Chloride (Potassium Chloride 20 Meq Tabcr) 40 meq PO X1 ONE Stop: 03/06/25 19:16 Last Admin: 03/06/25 19:51 Dose: 40 meq Documented By: SR
[2025-03-06 19:30] LABS: Sed Rate (ESR) 11 mm/hr (0-30)
[2025-03-06 20:10] LABS: Collection Type, Urine Clean Catch
[2025-03-06 20:13] LABS: C-Reactive Protein < 0.5 mg/dL (0.0-0.9)
[2025-03-06 20:15] LABS: Amorphous Crystals,Urine Present (Absent); Bacteria,Urine 1+; Bilirubin,Urine Negative (Negative); Blood,Urine Negative (Negative); Clarity,Urine Turbid (Clear/Hazy); Color,Urine Lt-Yellow (Lt Yel-Yel); Glucose, Urine Negative (Negative); Hyaline Casts,Urine < 1 /hpf (0-1); Ketones,Urine Negative (Negative); Leukocyte Esterase,Urine Positive (Negative); Nitrite,Urine Negative (Negative); PH,Urine 6.5 (5.0-7.0); Protein,Urine Negative (Neg - Trace); RBC,Urine 20 /hpf (0-3); Specific Gravity,Urine 1.010 (1.001-1.035); Squamous Epithelial Cell,Urine 4 /hpf (0-5); Urobilinogen,Urine Negative mg/dL (0.0-1.0); WBC,Urine 11 /hpf (0-5)
[2025-03-06 20:21] LABS: Culture Indicated,Urine Yes
[2025-03-06 20:38] VITALS: BP 206/91; PULSE 81; RESP 20; TEMP 36.7; O2SAT 100
[2025-03-06] MEDS: MESALAMINE 250 MG CAPSULE.ER PO ×2 (20:59→21:06)
[2025-03-06 21:02] VITALS: BP 159/88; PULSE 71; RESP 15; TEMP 36.7; O2SAT 99
[2025-03-06] MEDS: MESALAMINE 250 MG CAPSULE.ER 1000 MG PO (21:19)
[2025-03-06] MEDS: metroNIDAZOLE/NS 500 MG IVPB 500 MG/100 ML BAG 100 MG IV (22:27)
[2025-03-06] MEDS: cefTRIAXone/D5w 1gm IV premix 1 GM/50 ML BAG IV (22:27)
[2025-03-06 22:33] VITALS: BP 189/88; PULSE 64; RESP 19; TEMP 36.7; O2SAT 99
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
[2025-03-07] VITALS (27 sets, daily range): BP systolic 109–190; BP diastolic 57–102; PULSE 44–98; RESP 12–99; TEMP 36.1–36.8; O2SAT 95–100; BMI 25.2
[2025-03-07 05:31] LABS: Basophils # (Auto) 0.0 Thou/mm3 (0.0-0.2); Basophils % (Auto) 0 % (0-2.5); Eosinophils # (Auto) 0.0 Thou/mm3 (0.0-0.5); Eosinophils % (Auto) 0 % (0-10); Hematocrit 40.2 % (36.0-46.0); Hemoglobin 13.7 g/dL (12.0-16.0); Immature Granulocytes Auto 0.03 Thou/mm3 (0.00-0.00); Lymphocytes # (Auto) 0.7 Thou/mm3 (1.0-4.8); Lymphocytes % (Auto) 8 % (10-50); Mean Corpuscular HGB Conc 34.1 g/dl (31.0-37.0); Mean Corpuscular Hemoglobin 31.4 pg (25.0-35.0); Mean Corpuscular Volume 92 fL (80-100); Monocytes # (Auto) 0.1 Thou/mm3 (0.0-0.8); Monocytes % (Auto) 1 % (0-12); Neutrophils # (Auto) 8.5 Thou/mm3 (1.8-7.7); Neutrophils % (Auto) 91 % (37-80); Nucleated Red Blood Cell # 0.00 Thou/mm3 (0.00-0.00); Nucleated Red Blood Cell % 0 /100 WBC (0); Platelet Count 260 Thou/mm3 (140-440); RDW Standard Deviation 44.2 fL (36.4-46.3); Red Blood Count 4.37 Miln/mm3 (4.00-5.20); White Blood Count 9.4 Thou/mm3 (3.6-11.0)
[2025-03-07 06:16] LABS: Alanine Aminotransferase 9 U/L (10-49); Albumin, Serum 4.1 gm/dL (3.4-4.8); Albumin/Globulin Ratio 1.9 (1.2-2.2); Alkaline Phosphatase 69 U/L (46-116); Anion Gap 12 (7-16); Aspartate Amino Transferase 20 U/L (0-34); BUN/Creatinine Ratio 19 Ratio (12-20); Bilirubin,Total 0.4 mg/dL (0.3-1.2); Blood Urea Nitrogen 13 mg/dL (9-23); Calcium 8.7 mg/dL (8.3-10.6); Calcium (Corrected) 8.7 mg/dL (8.5-10.1); Carbon Dioxide 27.2 mMol/L (20.0-31.0); Chloride 108 mMol/L (98-107); Creatinine (Component) 0.7 mg/dL (0.6-1.3); Estimated Creatinine Clearance 60.4 mL/min (>60); Globulin 2.2 gm/dL (2.3-3.5); Glucose 185 mg/dL (74-106); Magnesium 1.3 mg/dL (1.6-2.6); Osmolality,Calculated 297 (275-295); Phosphorous 3.7 mg/dL (2.4-5.1); Potassium 3.2 mMol/L (3.4-5.1); Sodium 147 mMol/L (136-145); Total Protein 6.3 gm/dL (5.7-8.2); eGFR > 60 See Note
--- NOTE | 2025-03-07 08:33 | EKG_ITS ---
[facility] Test Date: 2025-03-07 Pat Name: AKBAR STEEL [facility] Crab Butcher: KRYSTIAN : 1945 Requested By: Ange Posada Order Number: [id number] Reading MD: Ange Posada Measurements Intervals [place] Rate: 60 P: [place]: QRS: 196 QRSD: 160 T: 29 QT: 520 QTc: 520 Interpretive Statements SINUS RHYTHM WITH 2ND DEGREE AV BLOCK, MOBITZ TYPE II INDETERMINATE AXIS RIGHT BUNDLE BRANCH BLOCK Compared to ECG 12/31/2024 08:04:43 Sinus bradycardia no longer present /store/S0/[id number].pdf
[2025-03-07] MEDS: POTASSIUM CHL 10 mEq IVPB 10 MEQ/100 ML BAG 100 MEQ IV ×3 (09:01→12:39)
[2025-03-07] MEDS: Magnesium Sulfate 4 GM Ivpb 4 GM/50 ML BAG IV (09:01)
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
[2025-03-07] MEDS: POTASSIUM CHL 10 mEq IVPB 10 MEQ/100 ML BAG 75 MEQ IV (14:30)
--- NOTE | 2025-03-07 14:58 | ESPR_ITS ---
Documentation for date of: 03/07/25 Subjective Subjective Interval history: Patient admitted overnight. Patient seen and examined at bedside. Patient reports resolution of abdominal pain. Denies shortness of breath, chest pain, palpitations or syncope. VSS. Hemoglobin 13.7, potassium 3.2 repleted with 40 mEq, creatinine stable 0.7, magnesium 1.3 repleted with 4 g IV. CRP ESR negative. CTAP shows mild diffuse colitis pattern. Pending GI consult, continue pantoprazole 40 mg twice daily IV. EKG taken shows Mobitz type II 2:1 block, with no history of similar arrhythmia in the past. Does not follow fiberglass roving winder. Cardiology consulted. Continue lisinopril 20 mg daily and hydralazine 50 mg TID with parameters to hold if SBP<90. Exam Vital Signs Temp Pulse Resp BP Pulse Ox O2 Del Method 97.8 F 55 L 16 142/65 H 97 Room Air 03/07/25 12:00 03/07/25 14:17 03/07/25 12:00 03/07/25 14:17 03/07/25 12:00 03/07/25 12:00 Narrative Exam GENERAL: AOx3, no acute distress, elderly HEENT: mucous membranes moist, bilateral sclera anicteric CARDIOVASCULAR: regular rate and rhythm, S1/S2 present, 2/6 systolic murmur PULMONARY: clear to auscultation bilaterally, no rales/rhonchi/wheezes ABDOMINAL: soft, non-tender, non-distended, no rebound/guarding, bowel sounds present, rectal tube in place draining black fluid EXTREMITIES: no peripheral edema SKIN: warm and dry, intact, no rashes NEURO: CN II-XII grossly intact, no focal deficits, alert, following commands Objective Labs 03/07/25 04:25 03/07/25 04:25 Labs: Laboratory Results - last 24 hr 03/06/25 03/06/25 03/07/25 16:35 20:00 04:25 WBC 8.3 9.4 RBC 4.17 4.37 Hgb 13.1 13.7 Hct 39.2 40.2 MCV 94 92 MCH 31.4 31.4 MCHC 33.4 34.1 RDW Std Deviation 45.2 44.2 Plt Count 260 260 Neut % (Auto) 68 91 H Lymph % (Auto) 21 8 L [place] % (Auto) 9 1 Eos % (Auto) 1 0 Baso % (Auto) 1 0 Neut # (Auto) 5.6 8.5 H Lymph # (Auto) 1.8 0.7 L [place] # (Auto) 0.7 0.1 Eos # (Auto) 0.1 0.0 Baso # (Auto) 0.1 0.0 Immature Gran # (Auto) 0.03 H 0.03 H Absolute Nucleated RBC 0.00 0.00 Immature Gran % 0 0 Nucleated RBC % 0 0 ESR 11 PT 11.9 INR 1.1 APTT 25.9 Sodium 146 H 147 H Potassium 3.0 L 3.2 L Chloride 105 108 H Carbon Dioxide 28.3 27.2 Anion Gap 13 12 BUN 18 13 Creatinine 1.0 0.7 Estim Creat Clear Calc 42.1 L 60.4 L eGFR 57 L > 60 BUN/Creatinine Ratio 18 19 Glucose 162 H 185 H Calculated Osmolality 296 H 297 H Calcium 8.7 8.7 Corrected Calcium 8.7 8.7 Phosphorus 3.7 Magnesium 1.3 L Total Bilirubin 0.3 0.4 AST 21 20 ALT 10 9 L Alkaline Phosphatase 71 69 C-Reactive Prot, Quant < 0.5 Total Protein 6.3 6.3 Albumin 4.0 4.1 Globulin 2.3 2.2 L Albumin/Globulin Ratio 1.7 1.9 Lipase 42 Ur Collection Type Clean Catch Urine Color Lt-Yellow Urine Clarity Turbid A Urine pH 6.5 Ur Specific [place] 1.010 Urine Protein Negative Urine Glucose (UA) Negative Urine Ketones Negative Urine Blood Negative Urine Nitrite Negative Urine Bilirubin Negative Urine Urobilinogen (Auto) Negative Ur Leukocyte Esterase Positive Urine RBC 20 H Urine WBC 11 H Ur Squamous Epith Cells 4 Amorphous Crystals Present A Urine Bacteria 1+ A Hyaline Casts < 1 Ur Culture Indicated? Yes Blood Type AB Positive Antibody Screen NEGATIVE Blood Bank Wristband ID Yes Quality Measures Quality Measures VTE prophylaxis Advance care planning discussed with:: patient Assessment & Plan Assessment Current Active Medications: Generic Name Dose Route Start Last Admin Trade Name Freq PRN Reason Stop Dose Admin Acetaminophen 650 mg 03/06/25 22:31 Acetaminophen 325 Mg Tablet PO 04/05/25 22:30 Q6H PRN Fever >101.5 or pain 1-3 Hydralazine HCl 50 mg 03/07/25 06:00 03/07/25 14:17 Hydralazine Hcl 25 Mg Tablet PO 04/06/25 05:59 50 mg TID BRITTANI Administration Levothyroxine Sodium 88 mcg 03/07/25 06:00 03/07/25 05:17 Levothyroxine Sodium 88 Mcg Tablet PO 04/06/25 05:59 Not Given ACBR [facility] Lisinopril 20 mg 03/07/25 09:00 03/07/25 09:01 Lisinopril 20 Mg Tablet PO 04/06/25 08:59 20 mg QDAY BRITTANI Administration Mesalamine 1,000 mg 03/06/25 22:00 03/06/25 22:33 Mesalamine 250 Mg Capsule.Er PO 04/05/25 21:59 Not Given On Hold: 03/06/25 23:35 TID BRITTANI Ondansetron HCl 4 mg 03/06/25 22:25 Ondansetron Inj 2 Mg/Ml Inj 2 Ml IVP 04/05/25 22:24 Q6H PRN NAUSEA OR VOMITING Protocol Pantoprazole Sodium 40 mg 03/07/25 09:00 03/07/25 09:02 Pantoprazole Inj 40 Mg Vial IVP 04/06/25 08:59 40 mg BID BRITTANI Administration Plan Janette Multani 79F pmhx significant for HFpEF (60 to 65%), thyroid cancer status post thyroidectomy, 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 ED on 03/06 after an episode of acute abdominal pain and melena, admitted for GI bleed, found to have Mobitz type II 2:1 heart block. #GI bleed, Likely upper of unknown etiology at this time #Melena Patient noted to have large bowel movement of black tarry stools. Rectal tube placed in ED was actively draining black tarry stool on admission. Denies iron supplements and took pepto bismol for a week two weeks ago with brown stools post consumption. Hgb on admission wnl, WBC wnl and not febrile. Ddx: AVM, bleeding diverticulosis, gastric stress ulcer Plan: - GI consulted, appreciate recommendations - NPO - IV pantoprazole 40 mg BID - Transfuse if Hgb <7 #Colitis, possibly secondary to IBD Patient was supposedly told that she has Crohn's disease due to appearance of colon during 02/16/[address] Rush. No samples taken and she was referred to a paint tinter in [place] for further management, however she never followed up. ESR and CRP wnl. Stool calprotectin neg in 09/2024. CTAP shows mild diffuse nonspecific colitis pattern. s/p methylprednisolone 60 mg x1 and 1500 mg of mesalamine in ED Plan: - GI consulted, appreciate recommendations #?Mobitz type II heart block On 03/07 EKG, mobitz type II 2:1 heart. No prior hx of heart block or arrhythmias (aside from bradycardia). Patient is asymptomatic and denies syncope, palpitations or LOC. Plan: - Cardiology consulted, recs appreciated #Hypertensive urgency #History of hypertension, primary Patient noted to have significant blood pressure with a maximum of 218/92 in the ED. Likely secondary to abdominal pain as the patient was having significant pain early in the ED. Patient takes lisinopril and hydralazine at home for management of her primary hypertension. Plan: - Started lisinopril 20 mg daily and hydralazine 50 mg TID #HFpEF, 60 to 65% (10/13/24) Patient noted to have HFpEF with echocardiogram done on 10/13/24 showing 60 to 65% LVEF. Does not have fiberglass roving winder. Plan: - Patient to follow-up outpatient - Keep potassium above 4 and magnesium above 2 #Thyroid cancer status post thyroidectomy Per patient history. Patient takes home levothyroxine, however she does not remember the dose for this. Plan: - resumed home levothyroxine 88 mcg ACBR #History of gout Patient has a history of gout and has been previously prescribed allopurinol, however the patient denies taking this medication on this visit. Plan: - Patient to follow-up outpatient #History of squamous cell carcinoma of the neck Patient noted to have a history of squamous cell carcinoma of the neck on the right, excised by Dr. Rush back in 2019. Patient no longer follows with Dr. Rush for this. Pathology report 02/20/2020 shows right neck mass resulted as metastatic squamous cell carcinoma, nonkeratinized, 4.0 cm in greatest dimension Plan: - Follow up outpatient Hospital management: Lines: PIV, rectal tube Diet: NPO Bowel: not indicated GI prophylaxis: IV pantoprazole 40 mg BID DVT prophylaxis: contraindicated GIB, SCDs Disposition: med surg, GI and cardio consult CODE STATUS: FULL CODE Plan of care discussed with attending Dr. Barros, and PGY-3 Dr. Hansen. Ange Posada DO PGY-1 Internal Medicine Senior Resident Attestation: The patient reported doing much better this morning. As he mentioned that she has been on a lot of stress recently, we are suspecting peptic ulcer, has been consulted GI Dr. Tompkins, likely to EGD tonight. We will keep the patient n.p.o., and replete electrolytes. She will be continued on pantoprazole 40 mg twice daily. Home antihypertensive medications were resumed. We will continue to monitor her closely. I discussed with and supervised the technical support intern physician involved in the care of this patient. I personally saw and examined the patient and discussed the assessment and plan with the entire medicine team, including my attending. I agree with the assessment and plan as documented above. Neeraj Hansen MD PGY3 Internal Medicine Attending Provider Attestation/Addendum I have discussed and was present for the essential components of the history, physical examination, diagnosis, and treatment plan with the resident. I agree with the patient's care as documented by the resident and amended herein by me. Erick Barros DO. Although this document has been carefully reviewed, there may still be some phonetic and other typographical errors. These errors are purely grammatical due to imperfections in the software program and should not be construed in any way to compromise the substance of the patient's medical care during this visit.
--- NOTE | 2025-03-07 16:25 | ESCONSULT_ITS ---
<Statement entered by Brittney Mckeon MD - 03/09/25 08:59> I personally evaluated this patient examined admitted to hospital with melena possible GI bleeding monitor showed evidence of possibly 6 second-degree heart block but I reviewed the EKG strips appears to be PACs but no evidence of any second-degree heart block most of these are compensated pauses asymptomatic no further treatment necessary evaluated patient with resident physician PGY 2 Dr. Servin agree with treatment plan recommendation as documented HPI Data of Consult Requesting Physician: Mary Garcia MD Admitting Provider: Mary Garcia MD Attending Provider: Mary Garcia MD Primary Care Provider: Katherine Jason MD Consult Narrative Reason for consult: Abnormal EKG History of present illness: Patient is 79-year-old female with past medical history HTN, HFpEF (60 to 65% from echocardiogram on 10/13/24), Hx. of thyroid cancer status post thyroidectomy, metastatic squamous cell carcinoma of mass in the right side of neck (unknown origin), depression and unconfirmed diagnosis of Crohn's disease. She presented to ED on 03/06 due to abdominal pain and melena. Admitted for GI bleed. Cardiology consulted today due to concern for heart block on EKG. After review of EKG noted that patient does not have heart but is having atrial bigeminy, incomplete compensatory pauses. She denies any associated symptoms such as dizziness, shortness of breath, chest pain. Repeat EKG pending. Vitals are stable. Labs reviewed. No antiarrhythmic or rate control therapy needed. Monitor electrolytes keep potassium greater than 4, magnesium greater than 2. cc:: cc: Mary Garcia MD Review of Systems Review of Systems Systems Reviewed: All systems reviewed, normal except as documented Exam Vital Signs Temp Pulse Resp BP Pulse Ox O2 Del Method 98.2 F 80 16 150/76 H 98 Room Air 03/07/25 16:00 03/07/25 16:00 03/07/25 16:00 03/07/25 16:00 03/07/25 16:00 03/07/25 16:00 Narrative Exam GENERAL: AOx3, no acute distress, elderly HEENT: mucous membranes moist, bilateral sclera anicteric CARDIOVASCULAR: regular rate and rhythm, S1/S2 present, 2/6 systolic murmur PULMONARY: clear to auscultation bilaterally, no rales/rhonchi/wheezes ABDOMINAL: soft, non-tender, non-distended, no rebound/guarding, bowel sounds present, rectal tube in place draining black fluid EXTREMITIES: no peripheral edema SKIN: warm and dry, intact, no rashes NEURO: CN II-XII grossly intact, no focal deficits, alert, following commands Results Labs 03/07/25 04:25 03/07/25 04:25 Labs: Short CBC 03/06/25 03/07/25 Range/Units 16:35 04:25 WBC 8.3 9.4 (3.6-11.0) Thou/mm3 Hgb 13.1 13.7 (12.0-16.0) g/dL Hct 39.2 40.2 (36.0-46.0) % Plt Count 260 260 (140-440) Thou/mm3 BMP 03/06/25 03/07/25 16:35 04:25 Sodium 146 H 147 H Potassium 3.0 L 3.2 L Chloride 105 108 H Carbon Dioxide 28.3 27.2 BUN 18 13 Creatinine 1.0 0.7 Glucose 162 H 185 H Calcium 8.7 8.7 Liver Function 03/06/25 03/07/25 Range/Units 16:35 04:25 Total Bilirubin 0.3 0.4 (0.3-1.2) mg/dL AST 21 20 (0-34) U/L ALT 10 9 L (10-49) U/L Alkaline Phosphatase 71 69 (46-116) U/L Albumin 4.0 4.1 (3.4-4.8) gm/dL Urine 03/06/25 Range/Units 20:00 Urine Color Lt-Yellow (Lt Yel-Yel) Urine Clarity Turbid A (Clear/Hazy) Urine pH 6.5 (5.0-7.0) Ur Specific [place] 1.010 (1.001-1.035) Urine Protein Negative (Neg - Trace) Urine Glucose (UA) Negative (Negative) Quality Measures Quality Measures VTE prophylaxis Advance care planning discussed with:: other Medications Home Medications and Allergies Home Medications ?Medication ?Instructions ?Recorded ?Confirmed ?Type lovastatin 20 mg tablet 40 mg PO HS #0 tabs 04/23/14 03/07/25 History levothyroxine 75 mcg tablet 88 mcg PO QAM 02/20/2209/24 History aspirin 81 mg tablet,delayed 81 mg PO DAILY 03/07/25 1 05/08/24 History release Allergies Allergy/AdvReac Type Severity Reaction Status Date / Time No Known Allergies Allergy Verified 03/06/25 15:58 Visit Medications Acetaminophen (Acetaminophen 325 Mg Tablet) 650 mg PO Q6H PRN PRN Reason: Fever >101.5 or pain 1-3 Stop: 04/05/25 22:30 Hydralazine HCl (Hydralazine Hcl 25 Mg Tablet) 50 mg PO TID [facility] Stop: 04/06/25 05:59 Levothyroxine Sodium (Levothyroxine Sodium 88 Mcg Tablet) 88 mcg PO ACBR [facility] Stop: 04/06/25 05:59 Last Admin: 03/07/25 05:17 Dose: Not Given Lisinopril (Lisinopril 20 Mg Tablet) 20 mg PO QDAY [facility] Stop: 04/06/25 08:59 Mesalamine (Mesalamine 250 Mg Capsule.Er) 1,000 mg PO TID [facility] On Hold: 03/06/25 23:35 Stop: 04/05/25 21:59 Last Admin: 03/06/25 22:33 Dose: Not Given Ondansetron HCl (Ondansetron Inj 2 Mg/Ml Inj 2 Ml) 4 mg IVP Q6H PRN; Protocol PRN Reason: NAUSEA OR VOMITING Stop: 04/05/25 22:24 Pantoprazole Sodium (Pantoprazole Inj 40 Mg Vial) 40 mg IVP BID [facility] Stop: 04/06/25 08:59 Last Admin: 03/07/25 09:02 Dose: 40 mg Discontinued Medications Hydrocodone Bitart/Acetaminophen (Hydrocodone/Apap 5/325 Tablet) 1 tab PO X1 ONE Stop: 03/06/25 16:45 Last Admin: 03/06/25 17:04 Dose: Not Given Hydralazine HCl (Hydralazine Inj 20 Mg/Ml Vial) 10 mg IVP X1 ONE Stop: 03/06/25 18:38 Last Admin: 03/06/25 18:41 Dose: 10 mg Hydralazine HCl (Hydralazine Hcl 25 Mg Tablet) 50 mg PO TID [facility] Stop: 04/06/25 05:59 Last Admin: 03/07/25 14:17 Dose: 50 mg Ceftriaxone Sodium/Dextrose (Rocephin/D5w 1gm Iv Premix) 1 gm in 50 mls @ 100 mls/hr IV X1 ONE Stop: 03/06/25 22:09 Last Infusion: 03/06/25 22:57 Dose: Infused Metronidazole (Flagyl 500 Mg Iv) 500 mg in 100 mls @ 100 mls/hr IV X1 ONE Stop: 03/06/25 22:39 Last Infusion: 03/06/25 23:27 Dose: Infused Potassium Chloride (Kcl Ivpb) 10 meq in 100 mls @ 100 mls/hr IV Q1H BRITTANI Stop: 03/07/25 12:28 Last Admin: 03/07/25 14:30 Dose: 75 mls/hr Magnesium Sulfate (Magnesium Sulfate Ivpb) 4 gm in 50 mls @ 12.5 mls/hr IV X1 ONE Stop: 03/07/25 12:29 Last Admin: 03/07/25 09:01 Dose: 12.5 mls/hr Lisinopril (Lisinopril 20 Mg Tablet) 40 mg PO QDAY [facility] Stop: 04/06/25 08:59 Lisinopril (Lisinopril 20 Mg Tablet) 20 mg PO QDAY BRITTANI Stop: 04/06/25 08:59 Last Admin: 03/07/25 09:01 Dose: 20 mg Mesalamine (Mesalamine 250 Mg Capsule.Er) 1,000 mg PO X1 ONE Stop: 03/06/25 20:16 Last Admin: 03/06/25 20:33 Dose: Not Given Mesalamine (Mesalamine 250 Mg Capsule.Er) 250 mg PO X1 ONE Stop: 03/06/25 20:32 Last Admin: 03/06/25 21:06 Dose: 250 mg Mesalamine (Mesalamine 250 Mg Capsule.Er) 1,000 mg PO X1 ONE Stop: 03/06/25 20:32 Last Admin: 03/06/25 21:19 Dose: 1,000 mg Methylprednisolone Sodium Succinate (Methylprednisolone Sod Succ 40 Mg/Ml Vial) 60 mg IVP X1 ONE Stop: 03/06/25 19:15 Last Admin: 03/06/25 19:52 Dose: 60 mg Methylprednisolone Sodium Succinate (Methylprednisolone Sod Succ 40 Mg/Ml Vial) 40 mg IVP BID [facility] Stop: 03/14/25 08:59 Pantoprazole Sodium (Pantoprazole Inj 40 Mg Vial) 80 mg IVP X1 ONE Stop: 03/06/25 22:19 Last Admin: 03/06/25 22:58 Dose: 80 mg Potassium Chloride (Potassium Chloride 20 Meq Tabcr) 40 meq PO X1 ONE Stop: 03/06/25 19:16 Last Admin: 03/06/25 19:51 Dose: 40 meq Assessment & Plan Plan Janette Multani 79F pmhx significant for HFpEF (60 to 65%), thyroid cancer status post thyroidectomy, 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 Cardiology consulted for abnormal EKG read. #Atrial bigeminy Patient has history of HFpEF, hypertension who was admitted for workup of GI bleed. Concern for Mobitz type II heart block. However upon further evaluation patient is having atrial bigeminy with incomplete compensatory pauses. Patient is denying any symptoms such as dizziness, shortness of breath, chest pain, palpitations. - Continue to monitor symptoms - Replete electrolytes as needed #History of hypertension #Hypertensive urgency-urgency #HFpEF, 60 to 65% (10/13/24) Patient noted to have significant blood pressure with a maximum of 218/92 in the ED. Likely secondary to abdominal pain as the patient was having significant pain early in the ED. Patient takes lisinopril and hydralazine at home for management of her primary hypertension. Echo from 10/13/2024--normal LV size, EF 60 to 65%, RVSP 33, trace MR, mild . - lisinopril 20 mg daily and hydralazine 50 mg TID - Keep potassium above 4 and magnesium above 2 #GI bleed #Melena #Possible Crohn's disease? #Nonspecific colitis pattern #Thyroid cancer status post thyroidectomy #History of gout #History of squamous cell carcinoma of the neck Primary care team to manage above conditions and ongoing care needs. The patient's management plan was discussed with my attending physician Dr. Mckeon. Kanika Funes, PGY-2
--- NOTE | 2025-03-07 16:46 | PD.IMCONS ---
HPI Data of Consult Requesting Physician: Mary Garcia MD Primary Care Provider: Katherine Jason MD Consult Narrative Reason for consult: Melena History of present illness: 79 years old female I been called in for evaluation of melanotic stools She had multiple stools requiring rectal tube and she is Hemoccult positive And dropping her hemoglobin hematocrit She does have a interesting past medical history of Questionable chron's disease although she never has diarrhea and is actually constipated currently not taking any medication She has been seeing a cafe operator in [place] She does have a history of congestive heart failure but ejection fraction is 60 to 65% there was some question of heart blockage but she has atrial bigeminy with compensatory pauses as per cardiology She also has a history of thyroid cancer requiring thyroidectomy as well as squamous cell carcinoma of the neck cc:: cc: Mary Garcia MD Review of Systems Review of Systems Systems Reviewed: All systems reviewed, normal except as documented Past Medical History Surgical History OTHER SURGICAL HX: As in the history of present illness Meds Home Medications and Allergies Home Medications ?Medication ?Instructions ?Recorded ?Confirmed ?Type lovastatin 20 mg tablet 40 mg PO HS #0 tabs 04/23/14 03/07/25 History levothyroxine 75 mcg tablet 88 mcg PO QAM 02/20/22 03/07/25 History aspirin 81 mg tablet,delayed 81 mg PO DAILY 03/07/25 03/07/25 History release Allergies Allergy/AdvReac Type Severity Reaction Status Date / Time No Known Allergies Allergy Verified 03/06/25 15:58 Exam Vital Signs Temp Pulse Resp BP Pulse Ox O2 Del Method 98.2 F 80 16 150/76 H 98 Room Air 03/07/25 16:00 03/07/25 16:00 03/07/25 16:00 03/07/25 16:00 03/07/25 16:00 03/07/25 16:00 Constitutional Comments: Alert oriented Routine Respiratory Exam Comments: Normal to auscultation Routine Abdominal Exam Comments: Soft nontender patient Results Labs 03/07/25 04:25 03/07/25 04:25 Labs: Short CBC 03/06/25 03/07/25 Range/Units 16:35 04:25 WBC 8.3 9.4 (3.6-11.0) Thou/mm3 Hgb 13.1 13.7 (12.0-16.0) g/dL Hct 39.2 40.2 (36.0-46.0) % Plt Count 260 260 (140-440) Thou/mm3 BMP 03/06/25 03/07/25 16:35 04:25 Sodium 146 H 147 H Potassium 3.0 L 3.2 L Chloride 105 108 H Carbon Dioxide 28.3 27.2 BUN 18 13 Creatinine 1.0 0.7 Glucose 162 H 185 H Calcium 8.7 8.7 Liver Function 03/06/25 03/07/25 Range/Units 16:35 04:25 Total Bilirubin 0.3 0.4 (0.3-1.2) mg/dL AST 21 20 (0-34) U/L ALT 10 9 L (10-49) U/L Alkaline Phosphatase 71 69 (46-116) U/L Albumin 4.0 4.1 (3.4-4.8) gm/dL Urine 03/06/25 Range/Units 20:00 Urine Color Lt-Yellow (Lt Yel-Yel) Urine Clarity Turbid A (Clear/Hazy) Urine pH 6.5 (5.0-7.0) Ur Specific [place] 1.010 (1.001-1.035) Urine Protein Negative (Neg - Trace) Urine Glucose (UA) Negative (Negative) Assessment and Plan Additional Assessment & Plan Additional Plan: # Melena # Posthemorrhagic anemia # Questionable history of chron's disease Plan Initial test of choice is fiberoptic esophagogastroduodenoscopy biopsy therapeutic intervention under intravenous moderate sedation Consent obtained after discussion of risk benefits and alternatives and we will proceed with the procedure today patient is n.p.o. If in case the endoscopy is negative we will consider fiberoptic colonoscopy prior to discharge Other medical problems include Thyroid carcinoma status post thyroidectomy Squamous cell carcinoma of the neck Atrial arrhythmias with atrial bigeminy Hyperlipidemia Hypothyroidism post thyroid cancer surgery Cognitive impairment Thank you very much for the opportunity to participate in the care of this patient
--- NOTE | 2025-03-07 18:07 | SUR.PHASEI ---
received pt and report from DEV Parham. Pt awake, a&ox4, no distress noted. pt denies any pain. VSS. IV intact, no s/s of infiltration or infection to site. Rectal tube in place, fecal matter noted in tubing and bag.
--- NOTE | 2025-03-07 18:27 | SUR.PHASEI ---
pt stable, vss, pt denies any pain. IV x2 intact, no s/s of infiltration or infection. Rectal tube intact. Report given to DEV Mcintyre
[2025-03-07] MEDS: NA SU/NAHCO3/KC/PEG (Golytely) 4,000 ML BTL 4000 ML PO (23:38)
[2025-03-08] VITALS (24 sets, daily range): BP systolic 122–215; BP diastolic 65–106; PULSE 43–70; RESP 13–98; TEMP 36.5–36.9; O2SAT 94–100
[2025-03-08] MEDS: LEVOTHYROXINE SODIUM 88 MCG TABLET PO (05:19)
[2025-03-08] MEDS: ACETAMINOPHEN 325 MG TABLET 650 MG PO (05:19)
[2025-03-08 06:09] LABS: Basophils # (Auto) 0.0 Thou/mm3 (0.0-0.2); Basophils % (Auto) 1 % (0-2.5); Eosinophils # (Auto) 0.0 Thou/mm3 (0.0-0.5); Eosinophils % (Auto) 1 % (0-10); Hematocrit 38.3 % (36.0-46.0); Hemoglobin 12.7 g/dL (12.0-16.0); Immature Granulocytes Auto 0.03 Thou/mm3 (0.00-0.00); Lymphocytes # (Auto) 1.8 Thou/mm3 (1.0-4.8); Lymphocytes % (Auto) 24 % (10-50); Mean Corpuscular HGB Conc 33.2 g/dl (31.0-37.0); Mean Corpuscular Hemoglobin 31.1 pg (25.0-35.0); Mean Corpuscular Volume 94 fL (80-100); Monocytes # (Auto) 0.7 Thou/mm3 (0.0-0.8); Monocytes % (Auto) 8 % (0-12); Neutrophils # (Auto) 5.1 Thou/mm3 (1.8-7.7); Neutrophils % (Auto) 66 % (37-80); Nucleated Red Blood Cell # 0.00 Thou/mm3 (0.00-0.00); Nucleated Red Blood Cell % 0 /100 WBC (0); Platelet Count 255 Thou/mm3 (140-440); RDW Standard Deviation 45.7 fL (36.4-46.3); Red Blood Count 4.08 Miln/mm3 (4.00-5.20); White Blood Count 7.7 Thou/mm3 (3.6-11.0)
[2025-03-08 06:35] LABS: Alanine Aminotransferase 9 U/L (10-49); Albumin, Serum 3.6 gm/dL (3.4-4.8); Albumin/Globulin Ratio 1.6 (1.2-2.2); Alkaline Phosphatase 61 U/L (46-116); Anion Gap 10 (7-16); Aspartate Amino Transferase 19 U/L (0-34); BUN/Creatinine Ratio 21 Ratio (12-20); Bilirubin,Total 0.6 mg/dL (0.3-1.2); Blood Urea Nitrogen 15 mg/dL (9-23); Calcium 8.8 mg/dL (8.3-10.6); Calcium (Corrected) 9.1 mg/dL (8.5-10.1); Carbon Dioxide 27.7 mMol/L (20.0-31.0); Chloride 109 mMol/L (98-107); Creatinine (Component) 0.7 mg/dL (0.6-1.3); Estimated Creatinine Clearance 60.4 mL/min (>60); Globulin 2.2 gm/dL (2.3-3.5); Glucose 103 mg/dL (74-106); Magnesium 2.0 mg/dL (1.6-2.6); Osmolality,Calculated 293 (275-295); Phosphorous 2.9 mg/dL (2.4-5.1); Potassium 3.4 mMol/L (3.4-5.1); Sodium 147 mMol/L (136-145); Total Protein 5.8 gm/dL (5.7-8.2); eGFR > 60 See Note
--- NOTE | 2025-03-08 09:24 | ESPR_ITS ---
<Statement entered by Darío Boykin MD - 03/08/25 15:57> I saw and examined patient personally and supervised PGY 1 resident, Dr. Liu with formulating a management plan. I agree with the documentation with the exceptions as listed below. Patient presented with melena and underwent EGD which showed gastritis. Currently undergoing GoLytely bowel preparation and scheduled for colonoscopy once cleared. Urine culture grew GNR preliminary. Plan of care discussed with Attending Dr. Fiorella Boykin MD PGY 2 Disclaimer: This note was dictated by speech recognition. Minor errors in palm and back forger may be present due to voice recognition software. Documentation for date of: 03/08/25 Subjective Subjective Interval history: Patient seen and examined at bedside; no acute events overnight. Drinking GoLytely for colonoscopy today. Urine grew GNR, waiting for species; patient stated that she has no symptoms. Exam Vital Signs Temp Pulse Resp BP Pulse Ox O2 Del Method O2 Flow Rate 98.5 F 56 L 16 162/75 H 98 Room Air 3 03/08/25 08:00 03/08/25 08:55 03/08/25 08:00 03/08/25 08:55 03/08/25 08:00 03/08/25 08:00 03/07/25 18:00 Narrative Exam GENERAL: AOx3, no acute distress, elderly HEENT: mucous membranes moist, bilateral sclera anicteric CARDIOVASCULAR: regular rate and rhythm, S1/S2 present, 2/6 systolic murmur PULMONARY: clear to auscultation bilaterally, no rales/rhonchi/wheezes ABDOMINAL: soft, non-tender, non-distended, no rebound/guarding, bowel sounds present, rectal tube in place draining clear fluid EXTREMITIES: no peripheral edema SKIN: warm and dry, intact, no rashes NEURO: CN II-XII grossly intact, no focal deficits, alert, following commands Objective Labs 03/08/25 05:02 03/08/25 05:02 Labs: Laboratory Results - last 24 hr 03/08/25 05:02 WBC 7.7 RBC 4.08 Hgb 12.7 Hct 38.3 MCV 94 MCH 31.1 MCHC 33.2 RDW Std Deviation 45.7 Plt Count 255 Neut % (Auto) 66 Lymph % (Auto) 24 [place] % (Auto) 8 Eos % (Auto) 1 Baso % (Auto) 1 Neut # (Auto) 5.1 Lymph # (Auto) 1.8 [place] # (Auto) 0.7 Eos # (Auto) 0.0 Baso # (Auto) 0.0 Immature Gran # (Auto) 0.03 H Absolute Nucleated RBC 0.00 Immature Gran % 0 Nucleated RBC % 0 Sodium 147 H Potassium 3.4 Chloride 109 H Carbon Dioxide 27.7 Anion Gap 10 BUN 15 Creatinine 0.7 Estim Creat Clear Calc 60.4 L eGFR > 60 BUN/Creatinine Ratio 21 H Glucose 103 D Calculated Osmolality 293 Calcium 8.8 Corrected Calcium 9.1 Phosphorus 2.9 Magnesium 2.0 Total Bilirubin 0.6 AST 19 ALT 9 L Alkaline Phosphatase 61 Total Protein 5.8 Albumin 3.6 D Globulin 2.2 L Albumin/Globulin Ratio 1.6 Quality Measures Quality Measures VTE prophylaxis Advance care planning discussed with:: other Assessment & Plan Assessment Current Active Medications: Generic Name Dose Route Start Last Admin Trade Name Freq PRN Reason Stop Dose Admin Acetaminophen 650 mg 03/06/25 22:31 03/08/25 05:19 Acetaminophen 325 Mg Tablet PO 04/05/25 22:30 650 mg Q6H PRN Administration Fever >101.5 or pain 1-3 Hydralazine HCl 50 mg 03/07/25 15:13 03/08/25 05:18 Hydralazine Hcl 25 Mg Tablet PO 04/06/25 05:59 50 mg TID BRITTANI Administration Potassium Chloride 10 meq in 100 mls @ 100 mls/hr 03/08/25 08:59 Kcl Ivpb IV 03/08/25 12:58 Q1H BRITTANI Levothyroxine Sodium 88 mcg 03/07/25 06:00 03/08/25 05:19 Levothyroxine Sodium 88 Mcg Tablet PO 04/06/25 05:59 88 mcg ACBR BRITTANI Administration Lisinopril 20 mg 03/07/25 15:13 03/08/25 08:55 Lisinopril 20 Mg Tablet PO 04/06/25 08:59 20 mg QDAY BRITTANI Administration Mesalamine 1,000 mg 03/06/25 22:00 03/06/25 22:33 Mesalamine 250 Mg Capsule.Er PO 04/05/25 21:59 Not Given On Hold: 03/06/25 23:35 TID BRITTANI Ondansetron HCl 4 mg 03/06/25 22:25 Ondansetron Inj 2 Mg/Ml Inj 2 Ml IVP 04/05/25 22:24 Q6H PRN NAUSEA OR VOMITING Protocol Pantoprazole Sodium 40 mg 03/07/25 09:00 03/08/25 08:56 Pantoprazole Inj 40 Mg Vial IVP 04/06/25 08:59 40 mg BID BRITTANI Administration Plan Janette Multani 79F pmhx significant for HFpEF (60 to 65%), thyroid cancer status post thyroidectomy, 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 #GI bleed, Likely upper of unknown etiology at this time #Melena Patient noted to have large bowel movement of black tarry stools. Rectal tube placed in ED was actively draining black tarry stool on admission. Denies iron supplements and took pepto bismol for a week two weeks ago with brown stools post consumption. Hgb on admission wnl, WBC wnl and not febrile. Ddx: AVM, bleeding diverticulosis, gastric stress ulcer Plan: - GI consulted, will have colonoscopy today assuming bowel movements are clear - NPO, on golytely - IV pantoprazole 40 mg BID - Transfuse if Hgb <7 #Colitis, possibly secondary to IBD Patient was supposedly told that she has Crohn's disease due to appearance of colon during 02/16/[address] Rush. No samples taken and she was referred to a desk pens assembler in [place] for further management, however she never followed up. ESR and CRP wnl. Stool calprotectin neg in 09/2024. CTAP shows mild diffuse nonspecific colitis pattern. s/p methylprednisolone 60 mg x1 and 1500 mg of mesalamine in ED Plan: - GI consulted, see above #Atrial bigeminy On 03/07 EKG, mobitz type II 2:1 heart. No prior hx of heart block or arrhythmias (aside from bradycardia). Patient is asymptomatic and denies syncope, palpitations or LOC. Plan: - Cardiology consulted, per their recs, continue to monitor symptoms and replete electrolytes as needed #Hypertensive urgency #History of hypertension, primary Patient noted to have significant blood pressure with a maximum of 218/92 in the ED. Likely secondary to abdominal pain as the patient was having significant pain early in the ED. Patient takes lisinopril and hydralazine at home for management of her primary hypertension. Plan: - Started lisinopril 20 mg daily and hydralazine 50 mg TID #HFpEF, 60 to 65% (10/13/24) Patient noted to have HFpEF with echocardiogram done on 10/13/24 showing 60 to 65% LVEF. Does not have care program director. Plan: - Follow-up outpatient - Keep potassium above 4 and magnesium above 2 #Thyroid cancer status post thyroidectomy Per patient history. Patient takes home levothyroxine, however she does not remember the dose for this. Plan: - resumed home levothyroxine 88 mcg ACBR #History of gout Patient has a history of gout and has been previously prescribed allopurinol, however the patient denies taking this medication on this visit. Plan: - Patient to follow-up outpatient #History of squamous cell carcinoma of the neck Patient noted to have a history of squamous cell carcinoma of the neck on the right, excised by Dr. Rush back in 2019. Patient no longer follows with Dr. Rush for this. Pathology report 02/20/2020 shows right neck mass resulted as metastatic squamous cell carcinoma, nonkeratinized, 4.0 cm in greatest dimension Plan: - Follow up outpatient Hospital management: Lines: PIV, rectal tube Diet: NPO Bowel: not indicated GI prophylaxis: IV pantoprazole 40 mg BID DVT prophylaxis: contraindicated GIB, SCDs Disposition: med surg, GI and cardio consult CODE STATUS: FULL CODE This case was discussed with my attending physician, Dr. Barros, and senior resident, Dr. Boykin. Keyur Liu, PGY1 Attending Provider Attestation/Addendum I have discussed and was present for the essential components of the history, physical examination, diagnosis, and treatment plan with the resident. I agree with the patient's care as documented by the resident and amended herein by me. Erick Barros DO. Although this document has been carefully reviewed, there may still be some phonetic and other typographical errors. These errors are purely grammatical due to imperfections in the software program and should not be construed in any way to compromise the substance of the patient's medical care during this visit.
[2025-03-08] MEDS: POTASSIUM CHL 10 mEq IVPB 10 MEQ/100 ML BAG 100 MEQ IV ×3 (10:26→13:40)
--- NOTE | 2025-03-08 12:32 | PC.NURSE ---
Dr Liu notified of BP. Per , give hydralazine at 1300 and recheck BP
[2025-03-08] MEDS: hydrALAZINE INJ 20 MG/ML VIAL 10 MG IVP (16:25)
--- NOTE | 2025-03-08 20:17 | PC.NURSE ---
Spoke to Dr. Monson before administering last bag of potassium d/t pt complaining that it parmar. I asked if pt can have PO instead, okayed not to give potassium as long as pt is eating. Pt ate rice and jello before shift change.
[2025-03-09] VITALS (9 sets, daily range): BP systolic 121–179; BP diastolic 59–90; PULSE 43–60; RESP 16–95; TEMP 36.6–37; O2SAT 94–97
--- NOTE | 2025-03-09 00:04 | ESPR_ITS ---
RE: JANETTE RIVAS : 1945 DATE OF SERVICE: 03/08/2025 SUBJECTIVE: Janette Rivas admitted to the hospital with multiple problems including melena and other problems, waiting for endoscopy. The patient apparently was found possible type 2 secondary heart block on EKG, computer reading, but I reviewed the EKGs myself. Appears to be there is no evidence of second-degree heart block, this mostly frequent PACs and bigeminy with right bundle branch block. The patient is asymptomatic, not having any shortness of breath, chest pain or palpitations. OBJECTIVE: VITAL SIGNS: Blood pressure 159/64, pulse rate 60, regular, respirations 16, temp normal. HEENT: Head is atraumatic. NECK: Supple. No JVD. CHEST: Symmetrical. LUNGS: Decreased breath sounds at the bases, no rales or rhonchi. HEART: S1, S2 regular. ABDOMEN: Thin and soft. EXTREMITIES: No edema. ASSESSMENT: 1. History of melena, undergoing GI workup. 2. Premature atrial contractions and cardiac arrhythmia, no evidence of heart block. RECOMMENDATIONS: Reassured that there is no heart block that requires any intervention or pacemaker implantation. DT: 22:58:39 TT: 00:04:00 Ref: [id number] - TID: [id number] MTDD
[2025-03-09] MEDS: LEVOTHYROXINE SODIUM 88 MCG TABLET PO (05:31)
[2025-03-09 06:13] LABS: Basophils # (Auto) 0.1 Thou/mm3 (0.0-0.2); Basophils % (Auto) 1 % (0-2.5); Eosinophils # (Auto) 0.1 Thou/mm3 (0.0-0.5); Eosinophils % (Auto) 2 % (0-10); Hematocrit 37.1 % (36.0-46.0); Hemoglobin 12.2 g/dL (12.0-16.0); Immature Granulocytes Auto 0.03 Thou/mm3 (0.00-0.00); Lymphocytes # (Auto) 1.5 Thou/mm3 (1.0-4.8); Lymphocytes % (Auto) 17 % (10-50); Mean Corpuscular HGB Conc 32.9 g/dl (31.0-37.0); Mean Corpuscular Hemoglobin 31.7 pg (25.0-35.0); Mean Corpuscular Volume 96 fL (80-100); Monocytes # (Auto) 0.7 Thou/mm3 (0.0-0.8); Monocytes % (Auto) 8 % (0-12); Neutrophils # (Auto) 6.6 Thou/mm3 (1.8-7.7); Neutrophils % (Auto) 73 % (37-80); Nucleated Red Blood Cell # 0.00 Thou/mm3 (0.00-0.00); Nucleated Red Blood Cell % 0 /100 WBC (0); Platelet Count 236 Thou/mm3 (140-440); RDW Standard Deviation 47.7 fL (36.4-46.3); Red Blood Count 3.85 Miln/mm3 (4.00-5.20); White Blood Count 9.1 Thou/mm3 (3.6-11.0)
[2025-03-09 06:51] LABS: Alanine Aminotransferase 10 U/L (10-49); Albumin, Serum 3.5 gm/dL (3.4-4.8); Albumin/Globulin Ratio 1.8 (1.2-2.2); Alkaline Phosphatase 58 U/L (46-116); Anion Gap 9 (7-16); Aspartate Amino Transferase 17 U/L (0-34); BUN/Creatinine Ratio 21 Ratio (12-20); Bilirubin,Total 0.4 mg/dL (0.3-1.2); Blood Urea Nitrogen 15 mg/dL (9-23); Calcium 8.8 mg/dL (8.3-10.6); Calcium (Corrected) 9.2 mg/dL (8.5-10.1); Carbon Dioxide 27.7 mMol/L (20.0-31.0); Chloride 110 mMol/L (98-107); Creatinine (Component) 0.7 mg/dL (0.6-1.3); Estimated Creatinine Clearance 60.4 mL/min (>60); Globulin 2.0 gm/dL (2.3-3.5); Glucose 95 mg/dL (74-106); Magnesium 1.6 mg/dL (1.6-2.6); Osmolality,Calculated 293 (275-295); Phosphorous 3.1 mg/dL (2.4-5.1); Potassium 3.8 mMol/L (3.4-5.1); Sodium 147 mMol/L (136-145); Total Protein 5.5 gm/dL (5.7-8.2); eGFR > 60 See Note
[2025-03-09] MEDS: ACETAMINOPHEN 325 MG TABLET 650 MG PO (08:39)
[2025-03-09] MEDS: MAGNESIUM OXIDE 400 MG TABLET PO (08:39)
--- NOTE | 2025-03-09 11:22 | PC.SS ---
Follow up note: IV diuretics. Pt will return to [facility] upon dc.
--- NOTE | 2025-03-09 11:49 | ESPR_ITS ---
Documentation for date of: 03/09/25 Subjective Subjective Interval history: Patient evaluated hemoglobin hematocrit relatively stable colonoscopy showed internal hemorrhoids Diverticulosis sigmoid colon upper endoscopy showed gastritis and esophagitis Okay to discharge patient to be followed as an outpatient if that she continues to bleed may need capsule endoscopy Exam Vital Signs Temp Pulse Resp BP Pulse Ox O2 Del Method O2 Flow Rate 98.4 F 54 L 16 179/71 H 97 Room Air 3 03/09/25 08:00 03/09/25 08:39 03/09/25 08:00 03/09/25 08:39 03/09/25 08:00 03/09/25 08:00 03/08/25 16:50 Objective Labs 03/09/25 04:52 03/09/25 04:52 Labs: Laboratory Results - last 24 hr 03/09/25 04:52 WBC 9.1 RBC 3.85 L Hgb 12.2 Hct 37.1 MCV 96 MCH 31.7 MCHC 32.9 RDW Std Deviation 47.7 H Plt Count 236 Neut % (Auto) 73 Lymph % (Auto) 17 [place] % (Auto) 8 Eos % (Auto) 2 Baso % (Auto) 1 Neut # (Auto) 6.6 Lymph # (Auto) 1.5 [place] # (Auto) 0.7 Eos # (Auto) 0.1 Baso # (Auto) 0.1 Immature Gran # (Auto) 0.03 H Absolute Nucleated RBC 0.00 Immature Gran % 0 Nucleated RBC % 0 Sodium 147 H Potassium 3.8 Chloride 110 H Carbon Dioxide 27.7 Anion Gap 9 BUN 15 Creatinine 0.7 Estim Creat Clear Calc 60.4 L eGFR > 60 BUN/Creatinine Ratio 21 H Glucose 95 Calculated Osmolality 293 Calcium 8.8 Corrected Calcium 9.2 Phosphorus 3.1 Magnesium 1.6 Total Bilirubin 0.4 AST 17 ALT 10 Alkaline Phosphatase 58 Total Protein 5.5 L Albumin 3.5 Globulin 2.0 L Albumin/Globulin Ratio 1.8 Impressions Impression: Gastritis Esophagitis Internal hemorrhoids diverticulosis sigmoid colon continue current management okay to discharge patient home Assessment & Plan A&P Narrative # Melena # Posthemorrhagic anemia # Questionable history of chron's disease Plan Initial test of choice is fiberoptic esophagogastroduodenoscopy biopsy therapeutic intervention under intravenous moderate sedation Consent obtained after discussion of risk benefits and alternatives and we will proceed with the procedure today patient is n.p.o. If in case the endoscopy is negative we will consider fiberoptic colonoscopy prior to discharge Other medical problems include Thyroid carcinoma status post thyroidectomy Squamous cell carcinoma of the neck Atrial arrhythmias with atrial bigeminy Hyperlipidemia Hypothyroidism post thyroid cancer surgery Cognitive impairment Thank you very much for the opportunity to participate in the care of this patient Time Spent With Patient Time: Total time spent is greater than 50% in coordination of care (as documented) at patient's floor/unit and/or counseling patient:
--- NOTE | 2025-03-09 13:25 | ESDS_ITS ---
<Statement entered by Darío Boykin MD - 03/09/25 17:50> I saw and examined patient personally and supervised PGY 1 resident, Dr. Posada with formulating a discharge plan. I agree with the documentation as listed below. Plan of care discussed with Attending Dr. Fiorella Boykin MD PGY 2 Disclaimer: This note was dictated by speech recognition. Minor errors in t ranscription may be present due to voice recognition software. Planned Discharge Date 03/09/25 DS: Providers Provider Date of admission: 03/06/25 22:40 Primary care physician: Katherine Jason MD Admitting Provider: Mary Garcia MD Attending Provider on Admission: Mary Garcia MD Consults: 03/06/25 21:21 Consult to Gastroenterology Stat Comment: Consulting Provider: Carlton Tompkins 03/07/25 15:09 Consult to Cardiology Routine Comment: Mobitz type II 2:1 Consulting Provider: Brittney Mckeon Attending Provider on DC: Rehan Barros DO Discharging Provider: Rehan Barros DO DS: Diagnosis Problem List Completed Was Problem List Reviewed/Reconciled?: Yes Hospital Course Hospital Course Hospital course: Summary: Janette Nerissa 79F pmhx significant for HFpEF (60 to 65%), thyroid cancer status post thyroidectomy, 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 Patient noted to have large bowel movement of black tarry stools day after admission after taking Ducolax OTC. Denies iron supplements and took pepto bismol for a week two weeks ago with brown stools post consumption. Rectal tube placed in ED was actively draining black tarry stool on admission. Hgb on admission wnl, WBC wnl and not febrile. Patient was supposedly told that she has Crohn's disease due to appearance of colon in [address] Rush. No samples taken and she was referred to a stained glass artist in [place] for further management, however she never followed up. ESR and CRP wnl. Stool calprotectin neg in 09/2024 and CTAP shows mild diffuse nonspecific colitis pattern. Patient underwent EGD 03/07, showing diffuse moderate inflammation of the gastrum. Patient underwent colonoscopy 03/087 grade 2 internal hemorrhoids nonbleeding, nonbleeding diverticula, rectal nonbleeding ulcers. Rectal ulcers likely secondary to rectal tube which was taken out and per GI, patient to use hydrocortisone enema 1 g nightly for 2 weeks and follow-up with outpatient GI. Of note, admission patient was found to have asymptomatic atrial bigeminy on EKG, per cardiology no intervention required at this time, and resolved on discharge. On discharge, patient is hemodynamically stable, labs was reviewed to be stable patient is ready to be discharged home. Imaging: CTAP shows moderate renal scar formation, no hydronephrosis or calculi, normal appendix, mild diffuse nonspecific colitis pattern Discharge Recommendations: - Please take all medications as prescribed - START hydrocortisone enema 1 g at night for 2 weeks - Continue all home medications except as above - Please follow up with your PCP within one week of discharge - Please follow up with your GI within one week of discharge and follow up calprotectin levels - If your symptoms worsen, please seek immediate medical attention and return to your nearest emergency room. - If you do not have a PCP, you may follow up at the [facility] at [address] [place] [address] [address], [facility] [address], Hospital Diagnoses: #GI bleed, Likely upper of unknown etiology at this time #Melena #Colitis #Atrial bigeminy #Hypertensive urgency #History of hypertension, primary #HFpEF, 60 to 65% (10/13/24) #Thyroid cancer status post thyroidectomy #History of gout #History of squamous cell carcinoma of the neck Plan of care discussed with attending Dr. Barros, and PGY-2 Dr. Boykin. Ange Posada, DO Internal Medicine, PGY-1 Time Spent with Patient Time attestation: Total time spent providing and/or coordinating discharge services: Time spent: Greater than 30 minutes Exam Vital Signs Temp Pulse Resp BP Pulse Ox O2 Del Method O2 Flow Rate 98.6 F 52 L 18 151/76 H 96 Room Air 3 03/09/25 12:00 03/09/25 12:00 03/09/25 12:00 03/09/25 12:03/09/25 12:03/09/25 12:03/08/25 16:50 Narrative Exam GENERAL: AOx3, no acute distress, elderly HEENT: mucous membranes moist, bilateral sclera anicteric CARDIOVASCULAR: regular rate and rhythm, S1/S2 present, 2/6 systolic murmur PULMONARY: clear to auscultation bilaterally, no rales/rhonchi/wheezes ABDOMINAL: soft, non-tender, non-distended, no rebound/guarding, bowel sounds present EXTREMITIES: no peripheral edema SKIN: warm and dry, intact, no rashes NEURO: CN II-XII grossly intact, no focal deficits, alert, following commands Discharge Plan Plan Patient Disposition: HOME (Self Care) Patient condition on transfer: Stable Care Plan Goals: - You have been started on Hydrocortisone enema. Take at night for 14 days. - Take the rest of medications as before. - Follow up with you Power Builder Developer within 2 weeks. - Follow up with your primary care physician within 1 week of discharge. If you do not have a primary care physician, please follow up with the [facility] Residents clinic ([phone]) ? If you experience any new, worsening or persistent symptoms either call your primary doctor, or dial 911 or present to the emergency department. Prescriptions/Referrals Prescriptions/Med Rec: New hydrocortisone 100 mg/60 mL enema 100 mg OK QDAY 14 Days Qty: 840 0RF Continued lovastatin 20 MG tablet 40 mg PO HS Qty: 0 levothyroxine 75 mcg tablet 88 mcg PO QAM Patient Comments: TAKE 1 TABLET BY MOUTH EVERY DAY BEFORE BREAKFAST lisinopril 40 mg tablet 40 mg PO QDAY Qty: 30 0RF hydralazine 50 mg tablet 50 mg PO TID Qty: 90 0RF aspirin 81 mg tablet,delayed release (DR/EC) 81 mg PO DAILY Patient Comments: TAKE 1 TABLET BY MOUTH EVERYDAY AT BEDTIME Discontinued hydrocodone-acetaminophen 5-325 mg tablet 1 tab PO TID MDD 3 PRN (Reason: pain) Qty: 20 0RF Referrals: Katherine Jason MD [Primary Care Provider, Nephrology] Patient/Caregiver Discharge Instructions Education Materials: Hydrocortisone rectal enema, Hydrocortisone Enema 1.67 mg/mL Print Language: [place]atian Stand Alone Forms: [employer] Award Info., Patient Portal Info Letter Discharge Order Discharge Orders: Discharge (Routine); Ordered 03/09/25 Ordered By: Rehan Barros Quality Discharge Quality Measures VTE prophylaxis Attestestation MD Attestation I have discussed and was present for the essential components of the discharge history, physical examination, diagnosis, and discharge treatment plan with the resident. I agree with the patient's discharge care as documented by the resident and amended herein by me. Erick Barros, DO. The patient understood all discharge instructions, all questions were answered satisfactorily. The patient was instructed to return to the Emergency Department is symptoms worsened or persisted. Upper endoscopy and colonoscopy negative for any acute bleeding, patient advised to return to the ED for further symptoms may need capsule endoscopy in the future. The patient was stable, afebrile and tolerating p.o. intake at time of discharge home. Although this document has been carefully reviewed, there may still be some phonetic and other typographical errors. These errors are purely grammatical due to imperfections in the software program and should not be construed in any way to compromise the substance of the patient's medical care during this visit.
[2025-03-16 06:49] LABS: Calprotectin, Stool* 55 mcg/g
== END 2025-03-09 15:05 | disposition home or self-care (01) ==
LOC: SERX 21:37 → S3SX 03-07 17:17 → SERHOLD 03-09 12:48 → S3SX 03-09 12:48
PROVIDERS: Nurse Practitioner Family; Specialist; Admitting Provider Student in an Organized Health Care Education/Training Program; Emergency Provider Emergency Medicine; PCP Internal Medicine; Visit Provider Student in an Organized Health Care Education/Training Program
PROC: (CPT 43239; principal; 2025-03-07 16:15)
PROC: 0DJD8ZZ Inspection of Lower Intestinal Tract, Via Natural or Artificial Opening Endoscopic (ICD-10-PCS; CPT 45378; principal; 2025-03-08 15:45)
DX: K52.9 Noninfective gastroenteritis and colitis, unspecified (principal); M10.9 Gout, unspecified; K29.71 Gastritis, unspecified, with bleeding; K64.1 Second degree hemorrhoids; K57.31 Diverticulosis of large intestine without perforation or abscess with bleeding; K62.6 Ulcer of anus and rectum; I11.0 Hypertensive heart disease with heart failure; I50.32 Chronic diastolic (congestive) heart failure; Z85.850 Personal history of malignant neoplasm of thyroid; Z85.89 Personal history of malignant neoplasm of other organs and systems; R00.8 Other abnormalities of heart beat; I44.1 Atrioventricular block, second degree; E89.0 Postprocedural hypothyroidism; E78.5 Hyperlipidemia, unspecified; D50.0 Iron deficiency anemia secondary to blood loss (chronic)
CPT/HCPCS: 43235; 45378; 36415; 74176; 80053; 81001; 83690; 83735; 83993; 84100; 85025; 85610; 85652; 85730; 86140; 86850; 86900; 86901; 87077; 87086; 87186; 93005; 93225; 96365; 96374; 96375; 96376; 99284; A4649; G0378; J0360; J0696; J1200; J1920; J2250; J2470; J2919; J3010; J3475; J3480; J3490; A9270; J1836

== ENCOUNTER → 2025-03-16 | Outpatient (CLI) | payer OTHER, SELFPAY ==
--- NOTE | 2025-03-16 16:00 | XR_ITS ---
Examination: CT soft tissue neck without intravenous contrast CT soft tissue neck with intravenous contrast 2-D sagittal reconstructions. 2-D coronal reconstructions. 3-D reconstructions. Date and time of exam: March 16, 2025, 1609 hours INDICATIONS: Diagnosis squamous cell carcinoma of the right side of the neck CTDI: vol (mGy): 22.4 DLP: (mGycm): 565 Technique: Multiple 1.25 mm axial sections of the soft tissue neck pre and post 50 cc Isovue-370 have been obtained. 2-D sagittal and coronal reconstructions have been obtained. 3-D reconstructions have been obtained. Low dose protocols were performed. One or more of the following dose reduction techniques were used; automated exposure control, adjustment of the mA and/or KV according to patient size, use of iterative reconstruction technique. Findings: Symmetrical nasopharynx oropharynx Right submandibular gland is smaller Axial image 24 demonstrates 13 x 4 mm soft tissue density lateral to the masseter muscle No pathologic cervical lymphadenopathy The larynx appears normal Normal epiglottis Lung apices clear IMPRESSION: Axial image 24 demonstrate 13 x 4 mm soft tissue density lateral to the masseter muscle, clinical correlation advised Consider repeat PET/CT scan follow-up
== END | disposition home or self-care (01) ==
PROVIDERS: PCP Internal Medicine; Referring Provider Nurse Practitioner Family; Visit Provider Nurse Practitioner Family
DX: C77.0 Secondary and unspecified malignant neoplasm of lymph nodes of head, face and neck (principal)
CPT/HCPCS: 70492; A4649; Q9967